=== PATIENT | female | born 1970 | race Caucasian/White ===

== ENCOUNTER 2018-11-10 17:00 | Outpatient (RCR) | payer BC, SELFPAY ==
--- NOTE | 2018-09-24 17:00 | HMH.PTOPEV ---
PT Outpatient Evaluation Rehab PT Outpatient Evaluation Start: 09/24/18 16:40 Freq: Status: Active Protocol: Document 09/24/18 16:40 ARIE (Rec: 09/24/18 16:59 ADRIENYOSELIN [id number]) Electronically Signed By Rogelio Shahid, PT 09/24/18 16:40 Outpatient Therapy Subjective History Subjective History Patient is a 48 year old female presenting to outpatient PT with reports of chronic lumbar spine pain with LLE radicular symptoms to the buttock and lateral thigh. No cervical radicular symptoms to report. Lumbar spine symptoms started approximately 6 months ago, while cevical spine pain began approx 12 years ago. No specific mechanism of injury to report. Comorbidities include fibomyalgia, LHB tendonitis, c -section x 1 and R knee arthroscopic surgery. Chief Complaint Pain,Paresthesia,Decreased Coordination Symptom Type Ache,Sharp Symptoms Relieved By Rest/Positioning,Heat, Prescription Meds Symptoms Aggravated By Sitting Prior Functional Limitations None Current Functional Limitations Lifting,Housework,Standing, Sitting,Walking Symptom Description Constant but Variable Level of pain today (0-10) 5 Pain scale - at its best (0-10) 2 Pain scale - at its worst (0-10) 6 Cervical Eval Palpation Cervical Muscles R Cervical Paraspinal,L Cervical Paraspinal,R Upper Trapezius,L Upper Trapezius Cervical/Thoracic Palpation Findings Tenderness Posture Head/C-Spine Posture Sitting Position C-Spine Flattened Flexibility Deficits Upper Trapezius Muscle Length (R) Moderate Tightness,(L) Moderate Tightness Levaetor Scapulae Muscle Length (R) Moderate Tightness,(L) Moderate Tightness Pectoralis Minor Muscle Length (R) Moderate Tightness,(L) Moderate Tightness Passive Joint Mobility Cervical PIVM Dec: R C2/3 L C2/3 R C3/4 L C3/4 R C4/5 L C4/5 R C5/6
== END 2018-11-10 17:05 | disposition home or self-care (01) ==
LOC: PT 17:00
PROVIDERS: Referring Provider Internal Medicine Adolescent Medicine; Visit Provider Internal Medicine Adolescent Medicine
DX: M54.12 Radiculopathy, cervical region (principal); M54.32 Sciatica, left side
CPT/HCPCS: 97010; 97012; 97014; 97033; 97035; 97110; 97140; 97163; G0283

== ENCOUNTER → 2020-06-13 12:33 | Outpatient (CLI) | payer BC, SELFPAY ==
--- NOTE | 2020-06-13 12:41 | XR_ITS ---
PROCEDURE: XR ANKLE RT MIN 3V CLINICAL INDICATION: RT ANKLE PAIN Injury with pain COMPARISON: No exams were available for comparison FINDINGS: There is a minimally displaced oblique fracture involving the distal aspect of the fibula. The fracture exits medially at the level of the ankle joint with minimal lateral displacement of the distal fracture fragment by 2 mm. IMPRESSION: Minimally displaced distal fibular fracture described Dictated by: Cy Mireles MD 06/13/2020 15:12 Cy Mireles MD in [place] 06/13/2020 15:12
== END ==
PROVIDERS: PCP Internal Medicine Adolescent Medicine; Visit Provider Internal Medicine Adolescent Medicine
DX: M25.571 Pain in right ankle and joints of right foot (principal)
CPT/HCPCS: 73610

== ENCOUNTER → 2020-06-14 15:45 | Outpatient (CLI) | payer BC, SELFPAY ==
[2020-06-14 17:04] LABS: Chloride 101 mmol/L (98-107); Potassium 4.2 mmoL/L (3.5-5.1); Sodium 138 mmol/L (136-145)
[2020-06-14 17:07] LABS: Alanine Aminotransferase 14 U/L (12-78); Albumin Level 4.5 g/dl (3.5-5.0); Albumin/Globulin Ratio 1.7 (1.1-1.8); Alkaline Phosphatase 53 U/L (38-126); Anion Gap 12.2 mEq/L (5-15); Aspartate Amino Transferase 24 U/L (14-36); Bilirubin,Total 0.3 mg/dl (0.2-1.3); Blood Urea Nitrogen 10 mg/dl (7-17); Carbon Dioxide 29 mmol/L (22.0-30.0); Estimated Glomerular Filt Rate 66 ml/min (>60); GFR (African American) 80 ML/MIN (>60); Globulin 2.6 g/dL (1.3-3.2); Total Protein,Serum 7.1 g/dl (6.3-8.2)
[2020-06-14 17:08] LABS: Calcium 9.9 mg/dl (8.4-10.2); Glucose 111 mg/dl (74-100)
[2020-06-14 17:09] LABS: Basophils # 0.1 K/mm3 (0-0.2); Basophils % 0.7 % (0.1-2.0); Eosinophils # 0.2 K/mm3 (0.0-0.4); Eosinophils % 2.6 % (0.1-12.0); Hematocrit 43.3 % (37.0-47.0); Lymphocytes # 2.5 K/mm3 (0.7-4.5); Lymphocytes % 33.5 % (10-50); Mean Corpuscular HGB Conc 32.2 g/dL (31.8-35.4); Mean Corpuscular Hemoglobin 29.4 pg (27.0-31.2); Mean Corpuscular Volume 91.1 fl (81-99); Mean Platelet Volume 8.8 fl (7.4-10.4); Monocytes # 0.3 K/mm3 (0.1-1.0); Monocytes % 3.7 % (1.7-9.3); Neutrophils # 4.5 K/mm3 (1.8-7.8); Neutrophils % 59.5 % (37.0-80.0); Platelet Count 236 K/mm3 (142-424); Red Blood Count 4.75 M/mm3 (4.20-5.40); Red Cell Distribution Width 13.6 % (11.5-17.5); White Blood Count 7.6 K/mm3 (4.8-10.8)
[2020-06-14 17:29] LABS: Urine Pregnancy, HCG Qual. Negative (Negative)
[2020-06-14 17:48] LABS: Coronavirus 19 IgG Antibody Negative (Negative); Coronavirus 19 IgM Antibody Negative (Negative)
== END ==
PROVIDERS: Visit Provider Orthopaedic Surgery
DX: Z01.812 Encounter for preprocedural laboratory examination (principal); Z20.822 Contact with and (suspected) exposure to COVID-19; S82.61XA Displaced fracture of lateral malleolus of right fibula, initial encounter for closed fracture
CPT/HCPCS: 36415; 80053; 81025; 85025; 86328

== ENCOUNTER 2020-06-15 08:19 | Day surgery (SDC) | payer BC, SELFPAY ==
[2020-06-14 16:51] VITALS: BMI 24.5
[2020-06-15] VITALS (11 sets, daily range): BP systolic 105–133; BP diastolic 64–77; PULSE 94–105; RESP 14–18; TEMP 36.4–36.6; O2SAT 92–100
--- NOTE | 2020-06-15 13:25 | XR_ITS ---
PROCEDURE: XR ANKLE RT 2V CLINICAL INDICATION: ORIF Rt ankle COMPARISON: No exams were available for comparison FINDINGS: Fluoroscopy time: 55 seconds. Multiple images are submitted during ORIF of the distal fibular fracture with placement of a lateral bone plate within the distal fibula as well as a cortical screw. There is good alignment. IMPRESSION: Good alignment status post ORIF distal fibula Dictated by: Cy Mireles MD 06/15/2020 18:41 Cy Mireles MD in [place] 06/15/2020 18:41
--- NOTE | 2020-06-15 13:49 | P.PN_ITS ---
[facility] Anesthesia Checklist - Patient Identification Patient Identification: Arm Band - Structural Data Admitted From: Home Planned Operative Procedure/s: ORIF right ankle Consent for Planned Operative Procedure(s) Verified: Yes Verified Documents: Surgical Consent, History and Physical - NPO Status Verified Time NPO: 00:00 - Additional verifications Anesthesia Reactions: No Hx Blood Transfusions: No Blood Transfusion Reaction: No - Airway Assessment C-Spine Mobility Assessed: Yes (mp2) TMJ Mobility Assessed: Yes Dentition: Good Dentition - Neurological Assessment Level of Consciousness: Awake, Alert - Anesthesia Plan Anesthesia Risk discussed: Yes Anesthesia Plan: Verified ASA Class: II Anesthesia Type: General w/block (Popliteal/saphenous nerve block. Risks/benefits explained. 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 No: Pacemaker Amputation: No Fractures: No - *Social History Last grade of school completed: Some college Smoking Status: Never smoker Alcohol Intake: never Alcohol Intake Frequency:: holidays/special occasions only Substance Use Type: denies use *Occupational Status:: employed Housing: house Household Members: spouse, family *Travel in the last 8 weeks: None Family Hx:: Stroke
--- NOTE | 2020-06-15 13:51 | P.PN_ITS ---
[facility] Anesthesia Record Part I Intake, IV Amount: 1,500 Estimated blood loss (mL): 10 Urine output (mL): 0 Blood Pressure: 133/77 SaO2: 92 Pulse Rate: 105 Respiratory Rate: 16 Temperature: 97.8 F Patient is:: Drowsy, Stable Stable to PACU at:: 13:45
--- NOTE | 2020-06-15 16:12 | HMH.ANESII ---
[facility] Anesthesia Record Part II Discharge Time: 14:19 Destination: Surgical Day Care (OP Surgery) PACU nurse assessment reviewed?: Yes Patient Condition:: Good Anesthesia Complications:: None Swallowing reflex intact?: Yes Cyanosis?: No Blood Pressure: 123/72 Pulse Rate: 100 Temperature: 97.7 F Mental Status: Alert & Oriented Pain level:: 0 Nausea and/or vomitting:: None Intake, IV Amount: 0
--- NOTE | 2020-06-15 22:54 | HMH.OPNOTE ---
Date of procedure: 06/15/20 Pre-op Diagnosis:: Closed, displaced fracture lateral malleolus, right ankle Post-op Diagnosis:: Same Procedure performed:: Open reduction and internal fixation, lateral malleolus, right ankle Surgeon:: Felton Kerr MD Microbial Specialist(s):: Danielle Payne SCALLOP RAKER:: Aung Allen Anesthesia: regional (Popliteal nerve block), LMA Estimated blood loss (mL): 5 Clinical Note:: Patient is a 49-year-old female who sustained a closed, displaced fracture of the lateral malleolus of her right ankle 4 days ago. She says she sustained a twisting injury to the ankle while getting onto the bed at home. There is no talar shift and syndesmosis appears intact. The medial malleolus is noted to be intact. Following a detailed discussion about the management options including both the nonoperative and operative, patient elected for surgical remediation. Surgery is indicated to anatomically reduce and stabilize the fracture in order to relieve the pain and improve the function and reduce the risk of complications including arthritis in future. 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 Her medical history includes fibromyalgia, hypothyoidism depression and chronic pain syndrome. She is on long-term oxycodone, diazepam and cyclobenzaprine. She is not a known diabetic and is a non-smoker. Please refer to my office note for full details. Operative findings:: Preoperative imaging findings and diagnosis correlate with the intraoperative findings. There is a mildly displaced, Mauro A type of lateral malleolus fracture. There is no lateral talar shift. The inferior tibiofibular syndesmosis is intact on Cotton's test; therefore, no syndesmotic fixation was not needed. After fixing the lateral malleolus, the ankle joint was stable and congruent. Bone quality is good. Operative note:: Prior to surgery patient was met in the preoperative assessment area and positively identified. I have again reviewed the clinical and imaging findings, diagnosis, management options including both nonsurgical and surgical and the expected results. Given the clinical and radiological findings, I have recommended an open reduction and internal fixation of the lateral malleolus fracture. We've outlined where the incision would be on the skin. Risks of surgery discussed include but are not limited to- infection, injury to nerves and blood vessels, injury to tendons, compartment syndrome, DVT/PE, malunion, nonunion, stiffness, CRPS (complex regional pain syndrome- pain, sensory and temperature changes, swelling and stiffness), painful hardware, loss of fixation, arthritis, incomplete relief of pain, incomplete return of function, and likely need for further surgery in future and also the risks of anesthesia including heart attack, stroke, and even . We've discussed how there is a small but real possibility of loss of use of the leg, loss of the leg or loss of life itself. We've also explained how additional surgery may be required. We explained the weightbearing status, immobilization required, the likely need for physical therapy, the possibility of stiffness, chronic pain and we've also discussed the option of nonsurgical treatment. The patient expressed full understanding and asked appropriate questions. All the questions were answered by me and patient verbalized a good understanding. She wished to proceed with surgery as planned. Patient understood the risks, agreed to proceed with surgery, signed the consent form and no guarantees or assurances were given or implied. A physical examination was performed and documented. The limb was marked and and initialed by me. The patient was brought to the operating room, placed supine on the operating table, and a general anesthesia was administered by the adoption specialist. Prior to this patient also had a popliteal nerve block by the adoption specialist in the preoperativ
== END 2020-06-15 15:05 | disposition home or self-care (01) ==
LOC: OR 08:20
PROVIDERS: PCP Internal Medicine Adolescent Medicine; Visit Provider Orthopaedic Surgery
DX: S82.61XA Displaced fracture of lateral malleolus of right fibula, initial encounter for closed fracture (principal); W06.XXXA Fall from bed, initial encounter; Y92.013 Bedroom of single-family (private) house as the place of occurrence of the external cause
CPT/HCPCS: 27792; 73600; 76000; 96374; C1713; C1776; J2405

== ENCOUNTER → 2020-06-22 16:18 | Outpatient (CLI) | payer BC, SELFPAY ==
--- NOTE | 2020-06-22 16:22 | XR_ITS ---
PROCEDURE: XR ANKLE RT MIN 3V CLINICAL INDICATION: sp ORIF RT ankle, cast applied Follow-up fracture/ORIF COMPARISON: CR XR ANKLE RT MIN 3V from 06/13/2020 FINDINGS: There is a cast in place. There has been placement of a lateral bone plate at the distal fibula with good alignment of the bony fragments. IMPRESSION: Status post ORIF distal fibula with good alignment Dictated by: Cy Mireles MD 06/22/2020 17:18 Cy Mireles MD in [place] 06/22/2020 17:18
== END ==
PROVIDERS: PCP Internal Medicine Adolescent Medicine; Visit Provider Orthopaedic Surgery
DX: S82.61XA Displaced fracture of lateral malleolus of right fibula, initial encounter for closed fracture (principal); Z09 Encounter for follow-up examination after completed treatment for conditions other than malignant neoplasm
CPT/HCPCS: 73610

== ENCOUNTER → 2020-07-04 13:53 | Outpatient (CLI) | payer BC, SELFPAY ==
--- NOTE | 2020-07-04 14:00 | XR_ITS ---
PROCEDURE: XR ANKLE RT MIN 3V CLINICAL INDICATION: sp ORIF RT ankle; OUT OF CAST COMPARISON: CR XR ANKLE RT MIN 3V from 06/13/2020 CR XR ANKLE RT MIN 3V from 06/22/2020 FINDINGS: Patient has had prior ORIF of distal fibula. The bony structures are well aligned. There is no x-ray evidence of hardware complication. The ankle mortise is preserved. Distal tibiofibular articulation closely approximated. IMPRESSION: Normal postsurgical appearance Dictated by: Lyric Holliday 07/04/2020 16:36 Lyric Holliday in [place] 07/04/2020 16:36
== END ==
LOC: OBOUT 13:55 → RAD 08-09 09:32
PROVIDERS: PCP Internal Medicine Adolescent Medicine; Visit Provider Orthopaedic Surgery
DX: S82.61XA Displaced fracture of lateral malleolus of right fibula, initial encounter for closed fracture (principal); Z09 Encounter for follow-up examination after completed treatment for conditions other than malignant neoplasm
CPT/HCPCS: 73610

== ENCOUNTER 2020-07-04 14:43 | Outpatient (RCR) | payer BC, SELFPAY | END 2020-07-04 15:10 | disposition home or self-care (01) | LOC: PT 14:43 | PROVIDERS: Visit Provider Orthopaedic Surgery | DX: S82.61XD Displaced fracture of lateral malleolus of right fibula, subsequent encounter for closed fracture with routine healing (principal) | CPT/HCPCS: 97760 ==

== ENCOUNTER → 2020-08-01 14:04 | Outpatient (CLI) | payer BC, SELFPAY ==
--- NOTE | 2020-08-01 14:09 | XR_ITS ---
PROCEDURE: XR ANKLE RT MIN 3V CLINICAL INDICATION: sp ORIF RT ankle, dos 06/15/20 Follow-up surgery COMPARISON: CR XR ANKLE RT MIN 3V from 06/13/2020 CR XR ANKLE RT MIN 3V from 06/22/2020 CR XR ANKLE RT MIN 3V from 07/04/2020 FINDINGS: Status post ORIF of the fibula with a lateral bone plate and multiple cortical screws with good alignment of the fracture fragments. Minimal spurring noted along the anterior distal aspect of the tibia and at the dorsal navicular region. IMPRESSION: No change good alignment status post ORIF of the fibula. Dictated by: Cy Mireles MD 08/01/2020 14:36 Cy Mireles MD in [place] 08/01/2020 14:36
== END ==
PROVIDERS: PCP Internal Medicine Adolescent Medicine; Visit Provider Orthopaedic Surgery
DX: S82.61XD Displaced fracture of lateral malleolus of right fibula, subsequent encounter for closed fracture with routine healing (principal); Z09 Encounter for follow-up examination after completed treatment for conditions other than malignant neoplasm
CPT/HCPCS: 73610

== ENCOUNTER → 2020-09-12 14:04 | Outpatient (CLI) | payer BC, SELFPAY ==
--- NOTE | 2020-09-12 14:08 | XR_ITS ---
PROCEDURE: XR ANKLE RT MIN 3V CLINICAL INDICATION: ORIF rt ankle COMPARISON: CR XR ANKLE RT MIN 3V from 06/13/2020 CR XR ANKLE RT MIN 3V from 06/22/2020 CR XR ANKLE RT MIN 3V from 07/04/2020 CR XR ANKLE RT MIN 3V from 08/01/2020 FINDINGS: Lateral bone plate remains in place at the distal fibula with good alignment. Fracture line is not readily identified. Oval lucency is noted along the talar dome medially measuring 5 mm. The cortex appears intact. Mild degenerative changes present at the ankle joint. Other findings:None. IMPRESSION: Good alignment healing distal fibular fracture. Small subcortical lucency talar dome medially suggesting a subarticular cyst Dictated by: Cy Mireles MD 09/12/2020 14:46 Cy Mireles MD in [place] 09/12/2020 14:46
== END ==
PROVIDERS: PCP Internal Medicine Adolescent Medicine; Visit Provider Orthopaedic Surgery
DX: S82.61XA Displaced fracture of lateral malleolus of right fibula, initial encounter for closed fracture (principal)
CPT/HCPCS: 73610

== ENCOUNTER 2020-10-04 15:00 | Outpatient (RCR) | payer BC, SELFPAY ==
--- NOTE | 2020-08-09 17:59 | HMH.PTOPEV ---
PT Outpatient Evaluation Rehab PT Outpatient Evaluation Start: 08/09/20 17:43 Freq: Status: Active Protocol: Document 08/09/20 17:48 MARYLOUJESSICA (Rec: 08/09/20 17:59 ALICIA [id number]) Electronically Signed By Darnell Vaughn PT 08/09/20 17:48 Outpatient Therapy Subjective History Subjective History This is the initial Physical Therapy evaluation for Martine Patiño. Pt is a 49 y/o female referred to PT s/p R ankle ORIF. Pt reports she fell at home on 06/11/20. Pt reports x-ray and orthopedic consult resulted in ORIF to fix displaced fublar fx. Pt reports she was in cast NWB for ~ 4 weeks, then gradually allowed to weight bear in CAM boot. Pt now reports to PT for strengthening and functional return. Chief Complaint Pain Symptom Type Ache,Throb,Sharp Symptoms Relieved By Rest/Positioning,Ice Symptoms Aggravated By Physical Activity Prior Functional Limitations None Current Functional Limitations Housework,Squatting,Recreation Activity,Walking,Stairs Symptom Description Intermittent Level of pain today (0-10) 0 Pain scale - at its best (0-10) 0 Pain scale - at its worst (0-10) 6 Ankle/Foot Eval Gait Observation General Gait Pattern Observation Antalgic Gait Assistive Device Ambulation Assistive Device None Palpation Tenderness right Ankle/Foot Palpation Findings Tenderness Ankle/Foot Palpation Overall Comment severe TTP along distal incision ROM Ankle/Foot Dorsiflexion w/Knee Extended 10 Active Range Motion (degrees) Ankle/Foot Plantar Flexion Active Range 50 of Motion (degrees) Ankle/Foot Eversion Active Range of 10 Motion (degrees) Ankle/Foot Inversion Active Range of 30 Motion (degrees) Ankle/Foot ROM Limitations Soft Tissue Tightness Ankle/Foot ROM Reason Not Measured Within Functional Limits MMT Ankle Dorsiflexion Strength Grade 4 Good Ankle Plantarflexion Strength Grade 4- Good- Foot Eversion Strength Grade 4 Good Foot Inversion Strength Grade 4 Good Special Tests Ankle Anterior Drawer Test Negative Right Ankle Eversion Test Negative Right Talar Tilt Test Negative Right Ankle Inversion (supination) Test Negative Right Outpatient Therapy Assessment Impairments Problems/Impairmments Palpation Tenderness,Impaired
== END 2020-11-29 14:37 | disposition home or self-care (01) ==
LOC: PT 15:00
PROVIDERS: PCP Internal Medicine Adolescent Medicine; Visit Provider Orthopaedic Surgery
DX: S82.61XD Displaced fracture of lateral malleolus of right fibula, subsequent encounter for closed fracture with routine healing (principal)
CPT/HCPCS: 97010; 97014; 97033; 97110; 97112; 97163; 97164; G0283

== ENCOUNTER → 2020-12-05 09:51 | Outpatient (CLI) | payer BC, SELFPAY ==
--- NOTE | 2020-12-05 10:20 | XR_ITS ---
PROCEDURE: XR ANKLE RT MIN 3V CLINICAL INDICATION: sp ORIF RT ankle sx 06/15/20 COMPARISON: CR XR ANKLE RT MIN 3V from 06/22/2020 CR XR ANKLE RT MIN 3V from 07/04/2020 CR XR ANKLE RT MIN 3V from 08/01/2020 CR XR ANKLE RT MIN 3V from 09/12/2020 FINDINGS: Plate and screw fixation of the distal fibula is again noted, demonstrates satisfactory alignment. Previously noted distal fibular fracture is not visualized on the current study. Minor callus formation is noted in the distal fibula. The ankle mortise is congruent and the lateral clear space is preserved. No significant soft tissue abnormality. IMPRESSION: Internal fixation of the right distal fibula. No acute abnormality. Dictated by: Brie Kerr 12/05/2020 11:30 Brie Kerr in [place] 12/05/2020 11:30
[2020-12-05 10:26] LABS: Basophils # 0.1 K/mm3 (0-0.2); Basophils % 0.6 % (0.1-2.0); Eosinophils # 0.4 K/mm3 (0.0-0.4); Eosinophils % 4.6 % (0.1-12.0); Hematocrit 41.1 % (37.0-47.0); Lymphocytes # 2.5 K/mm3 (0.7-4.5); Lymphocytes % 30.6 % (10-50); Mean Corpuscular HGB Conc 34.1 g/dL (31.8-35.4); Mean Corpuscular Hemoglobin 29.9 pg (27.0-31.2); Mean Corpuscular Volume 87.9 fl (81-99); Mean Platelet Volume 9.1 fl (7.4-10.4); Monocytes # 0.2 K/mm3 (0.1-1.0); Monocytes % 2.6 % (1.7-9.3); Neutrophils # 4.9 K/mm3 (1.8-7.8); Neutrophils % 61.5 % (37.0-80.0); Platelet Count 324 K/mm3 (142-424); Red Blood Count 4.68 M/mm3 (4.20-5.40); Red Cell Distribution Width 14.1 % (11.5-17.5)
[2020-12-05 11:04] LABS: Alanine Aminotransferase 14 U/L (12-78); Albumin Level 4.8 g/dl (3.5-5.0); Albumin/Globulin Ratio 2.1 (1.1-1.8); Alkaline Phosphatase 67 U/L (38-126); Anion Gap 15.2 mEq/L (5-15); Aspartate Amino Transferase 20 U/L (14-36); Bilirubin,Total 0.5 mg/dl (0.2-1.3); Blood Urea Nitrogen 10 mg/dl (7-17); Calcium 9.4 mg/dl (8.4-10.2); Carbon Dioxide 28 mmol/L (22.0-30.0); Chloride 102 mmol/L (98-107); Estimated Glomerular Filt Rate 66 ml/min (>60); GFR (African American) 80 ML/MIN (>60); Globulin 2.3 g/dL (1.3-3.2); Glucose 79 mg/dl (74-100); HDL Cholesterol 93 mg/dl (40-60); Potassium 4.2 mmoL/L (3.5-5.1); Sodium 141 mmol/L (136-145); Total Protein,Serum 7.1 g/dl (6.3-8.2)
[2020-12-05 11:06] LABS: Chol/HDL Ratio 2.2 (1-3.5); Cholesterol 207 mg/dl (140-200); Triglycerides 151 mg/dl (30-150); VLDL Cholesterol 30 mg/dL (0-40)
[2020-12-05 11:14] LABS: Direct LDL Cholesterol 81.95 mg/dL (100-129)
[2020-12-05 11:21] LABS: Free Thyroxine Index 2.9 ug/dL (5.93-13.13); T4 (Thyroxine) 8.8 ug/dl (5.53-11.0); Triiodothryronine (T3) Uptake 33 % (23.5-40.5)
[2020-12-05 11:34] LABS: Thyroid Stimulating Hormone 0.16 uIU/mL (0.465-4.68)
[2020-12-05 11:54] LABS: Vitamin B12 221 pg/mL (239-931)
--- NOTE | 2020-12-05 12:17 | XR_ITS ---
PROCEDURE: XR FOOT WT BEARING RT 2V CLINICAL INDICATION: right foot pain COMPARISON: No exams were available for comparison FINDINGS: Plate and screw fixation of the right distal fibula is noted, partially visualized. The visualized tarsals, metatarsals and phalanges are unremarkable. No acute fractures or dislocation. Bone density is normal. No significant soft tissue abnormality is noted. Calcaneal spur is noted. IMPRESSION: Internal fixation of the distal fibular, partially visualized. No acute abnormality. Dictated by: Brie Kerr 12/05/2020 13:57 Brie Kerr in [place] 12/05/2020 13:57
[2020-12-05 15:09] LABS: Barbiturates Screen,Urine Negative ng/ml (<200)
[2020-12-05 15:10] LABS: Benzodiazepines Screen,Urine Negative ng/ml (<200)
[2020-12-05 15:11] LABS: Amphetamine/Metha Screen,Urine Negative ng/ml (<1000); Methadone Screen,Urine Negative ng/ml (<300)
[2020-12-05 15:12] LABS: Cannabinoid Screen,Urine Negative ng/ml (<50)
[2020-12-05 15:13] LABS: Cocaine Screen,Urine Negative ng/ml (<300); Opiate Screen,Urine Negative ng/ml (<300)
[2020-12-05 15:14] LABS: Phencyclidine Screen,Urine Negative ng/ml (<25)
[2020-12-05 15:26] LABS: 25-OH Vitamin D, Total 62.9 ng/mL (30-100)
== END ==
PROVIDERS: PCP Internal Medicine Adolescent Medicine; Visit Provider Orthopaedic Surgery
DX: Z09 Encounter for follow-up examination after completed treatment for conditions other than malignant neoplasm (principal); M79.671 Pain in right foot; M54.12 Radiculopathy, cervical region; E03.9 Hypothyroidism, unspecified
CPT/HCPCS: 36415; 73610; 73620; 80053; 80061; 80305; 82306; 82607; 84436; 84443; 84479; 85025

== ENCOUNTER → 2020-12-12 12:07 | Outpatient (CLI) | payer BC, SELFPAY | PROVIDERS: Visit Provider Orthopaedic Surgery | DX: Z01.818 Encounter for other preprocedural examination (principal); Z20.822 Contact with and (suspected) exposure to COVID-19 | CPT/HCPCS: U0003 ==

== ENCOUNTER → 2020-12-13 10:54 | Outpatient (CLI) | payer BC, SELFPAY ==
--- NOTE | 2020-12-13 10:56 | MM_ITS ---
PROCEDURE: MM DIG SCREENING MAMM BI W/CAD Digital Breast Tomosynthesis Included CLINICAL INDICATION: SCREENING COMPARISON: MG MAZIN DIGITAL SCREEN BILATERAL MOBILE from 10/09/2017 MG MAZIN BODULIO DIGITAL SCREEN BILATERAL from 10/21/2018 TECHNIQUE: Standard CC and MLO images and 3D Tomosynthesis was obtained. R2 CAD reviewed. FINDINGS: There is heterogeneously dense fibroglandular tissue. No malignant appearing mass or malignant-appearing microcalcification. Scattered areas of asymmetric fibroglandular tissue noted. 5 mm area of nodularity noted in the lateral aspect of the left breast as seen on the exaggerated CC view and may be related to an island of fibroglandular tissue. There are no previous exaggerated cc available for review. This is felt to be related to an area of asymmetric density in the upper outer left breast as seen on this exam and previous exams. Six-month follow-up suggested for confirmation of stability. Small nodes are present in the axilla. No skin thickening or architectural distortion IMPRESSION: No convincing evidence of malignancy. Asymmetric density upper outer left breast more prominent on the exaggerated CC view probably benign. Recommend six-month mammographic follow-up of the left breast. Ultrasound may also be needed at that time if the abnormality persists. BI-RAD Category: 3 Probably Benign Finding Short Term Follow-Up FOLLOW-UP: 6M 6 Month Follow-up (A letter has been sent to the patient regarding results of the study.) Dictated by: Cy Mireles MD 12/20/2020 09:04 Cy Mireles MD in [place] 12/20/2020 09:04
== END ==
PROVIDERS: PCP Internal Medicine Adolescent Medicine; Visit Provider Internal Medicine Adolescent Medicine
DX: Z12.31 Encounter for screening mammogram for malignant neoplasm of breast (principal)
CPT/HCPCS: 77063; 77067

== ENCOUNTER 2020-12-14 10:18 | Day surgery (SDC) | payer BC, SELFPAY ==
[2020-12-12 12:43] VITALS: BMI 24.5
[2020-12-14] VITALS (11 sets, daily range): BP systolic 95–143; BP diastolic 60–93; PULSE 90–96; RESP 13–18; TEMP 36.4–43; O2SAT 92–100
--- NOTE | 2020-12-14 12:15 | P.PN_ITS ---
[facility] Anesthesia Checklist - Patient Identification Patient Identification: Arm Band - Structural Data Admitted From: Home Planned Operative Procedure/s: Hardware removal Consent for Planned Operative Procedure(s) Verified: Yes - NPO Status Verified Time NPO: 00:00 - Additional verifications Anesthesia Reactions: No Hx Blood Transfusions: No Blood Transfusion Reaction: No - Airway Assessment C-Spine Mobility Assessed: Yes TMJ Mobility Assessed: Yes Dentition: Good Dentition - Neurological Assessment Level of Consciousness: Awake Hx Seizures: No Numbness or tingling in extremities: No - Anesthesia Plan Anesthesia Risk discussed: Yes Anesthesia Plan: Verified ASA Class: II Anesthesia Type: General [facility] History I have reviewed the patient's past medical history: Yes Medical History: Reports:: Anxiety, Depression, MRSA (groin) Denies:: Cancer, Diabetes Mellitus Type 1, Diabetes Mellitus Type 2, Internal Pacemaker, Seizures *Have you ever received a pneumonia vaccine?: No *Have you received a flu vaccine this season?: Yes Other Medical History: Reports: Hypothyroidism, Other (Fibromyalgia, chronic fatigue). Denies: Blood Transfusion Reaction Anesthesia experience/problems:: None Laterality Cases: Right: Arthroscopy Knee, Bilateral: Tonsillectomy Other Surgeries: Yes: , Other. No: Pacemaker Amputation: No Fractures: Yes - *Social History Last grade of school completed: Some college Smoking Status: Never smoker Alcohol Intake: current Alcohol Intake Frequency:: holidays/special occasions only Substance Use Type: denies use *Occupational Status:: employed Housing: house Household Members: spouse, family *Travel in the last 8 weeks: Inside the [place] Family Hx:: No significant family history
--- NOTE | 2020-12-14 13:55 | XR_ITS ---
PROCEDURE: XR ANKLE RT 2V CLINICAL INDICATION: HARDWARE REMOVAL RT ANKLE COMPARISON: No exams were available for comparison FINDINGS: Fluoroscopy time: 14 seconds Images submitted during the procedure show hardware removal with removal of the lateral fibular bone plate and screws. A needle was also placed over the 1st metacarpophalangeal joint presumably for joint injection. IMPRESSION: C-arm utilized for hardware removal and 1st interphalangeal joint localization Dictated by: Cy Mireles MD 12/14/2020 16:59 Cy Mireles MD in [place] 12/14/2020 16:59
--- NOTE | 2020-12-14 14:06 | P.PN_ITS ---
[facility] Anesthesia Record Part I Intake, IV Amount: 1,000 Estimated blood loss (mL): 5 Urine output (mL): 0 Blood Pressure: 119/72 SaO2: 92 Pulse Rate: 92 Respiratory Rate: 13 Temperature: 97.8 F Patient is:: Drowsy, Oral/Nasal airway Stable to PACU at:: 14:00
--- NOTE | 2020-12-14 14:35 | HMH.OPNOTE ---
Date of procedure: 12/14/20 Pre-op Diagnosis:: 1. Painful orthopedic hardware, right ankle 2. First MTP joint arthritis, right foot Post-op Diagnosis:: Same Procedure performed:: 1. Injection of steroid and local anesthetic, first MTP joint, right foot 2. Removal of plate and screws, lateral malleolus, right ankle Surgeon:: Felton Kerr MD OFFLINE CUTTER:: Guerita Harding Anesthesia: LMA Estimated blood loss (mL): 2 Clinical Note:: Patient is a 50-year-old female status post ORIF for lateral malleolus fracture of the right ankle about 6 months ago. She has been having hardware related pain and tenderness for a length of time. This failed to respond satisfactorily to conservative management. She reports that the skin over the distal fibula is very sensitive to touch and she is finding it difficult with her footwear. She reports her pain is a 2 out of 10 at rest and a 5 out of 10 at its worse. She reports prolonged walking aggravates her pain. She is on long-term pain medication and is also taking ibuprofen as needed. No history of any fevers, chills or rigors. She feels well within herself. No history of any swelling or erythema around the ankle. No history of any distal tingling or numbness. More recently, she is also having pain in her right big toe. She localizes the pain to the first MTP joint. She says the pain is worse with walking. No history of any previous problems with the big toe. She is a non smoker. On examination she is tender over the plate and screws over the lateral malleolus. No signs of infection noted. Radiologically the lateral malleolus fracture has healed well. On examination of the first MTP joint, she has tenderness and limited range of motion. Following a detailed discussion about management options, patient opted for removal of the hardware from the right ankle and intra-articular steroid injection to the right first MTP joint. Please refer to my office note for full details. Operative findings:: Mild arthritic changes in the first MTP joint as noted on the preoperative imaging. Well fixed hardware over the lateral malleolus which came out easily without any complications. No evidence of any infection or other complications noted. We obtained culture swabs for microbiology. Operative note:: On the day of surgery patient and her were met in the preoperative area and positively identified. I have again reviewed the diagnosis, natural history and management options in detail including both nonsurgical and surgical. Given the severity and chronicity of her symptoms, she wished to proceed with removal of hardware from the lateral mellitus and debridement as needed. We also discussed about steroid injection to the first MTP joint to improve her pain. I have discussed the details of the procedures, risks and benefits and alternatives. The complications discussed include but are not limited to infection, bleeding, injury to nerves and blood vessels, injury to tendons, skin breakdown and non healing wound, stiffness, DVT and PE, CRPS (complex regional pain syndrome- pain, sensory and temperature changes, swelling and stiffness), incomplete relief of pain, incomplete return of function, and likely need for further surgery in future and also the risks of anesthesia including heart attack, stroke, and even . I have also explained how additional surgery may be required if there are any complications or there is infection. I have specifically told her that she may need multiple surgeries if there is bone infection. We've also discussed the option of nonsurgical treatment. The patient understands and has asked appropriate questions. All her questions were answered and she verbalized a good understanding. She desires to proceed with the proposed surgery in the form of removal of hardware from the distal fibula and debridement as well as injection of the right first MTP joint under fluoroscopy. A physical examination was pe
--- NOTE | 2020-12-15 07:51 | HMH.ANESII ---
[facility] Anesthesia Record Part II Discharge Time: 14:40 Destination: Surgical Day Care (OP Surgery) PACU nurse assessment reviewed?: Yes Patient Condition:: Good Anesthesia Complications:: None Swallowing reflex intact?: Yes Cyanosis?: No Blood Pressure: 130/74 Pulse Rate: 94 Temperature: 97.6 F Mental Status: Jail Memory Loss Pain level:: 0 Nausea and/or vomitting:: None Intake, IV Amount: 0
[2020-12-15 07:52] VITALS: BP 130/74; PULSE 94; TEMP 36.4
== END 2020-12-14 15:11 | disposition home or self-care (01) ==
LOC: OR 10:19
PROVIDERS: PCP Internal Medicine Adolescent Medicine; Visit Provider Orthopaedic Surgery
PROC: (CPT 20680; principal; 2020-12-14 11:45)
DX: Z47.2 Encounter for removal of internal fixation device (principal); T84.84XA Pain due to internal orthopedic prosthetic devices, implants and grafts, initial encounter; Y83.1 Surgical operation with implant of artificial internal device as the cause of abnormal reaction of the patient, or of later complication, without mention of misadventure at the time of the procedure; M19.071 Primary osteoarthritis, right ankle and foot; G89.29 Other chronic pain; Z79.899 Other long term (current) drug therapy
CPT/HCPCS: 20680; 20605; 73600; 76000; 87070; 87075; 87205; 96374; J0131; J2405

== ENCOUNTER → 2020-12-27 09:21 | Outpatient (CLI) | payer BC, SELFPAY ==
--- NOTE | 2020-12-27 09:23 | XR_ITS ---
PROCEDURE: XR DEXA AXIAL SKELETON CLINICAL HISTORY: POST-MENOPAUSAL COMPARISON: No exams were available for comparison FINDINGS: The right hip BMD is 0.649 with a T-score of -1.8. The left hip BMD is 0.677 with a T-score of -1.6. The lumbar spine BMD is 1.023 with a T-score of -0.2. IMPRESSION: This patient is considered osteopenic according to the World Health Organization criteria. Bone density is between 10 and 25 percent below young normal. Fracture risk is moderate. Treatment is advised. Based on these results a follow-up exam is recommended in 2 year. Dictated by: Cy Mireles MD 12/28/2020 07:37 Cy Mireles MD in [place] 12/28/2020 07:37
== END ==
PROVIDERS: PCP Internal Medicine Adolescent Medicine; Visit Provider Internal Medicine Adolescent Medicine
DX: Z13.820 Encounter for screening for osteoporosis (principal); Z78.0 Asymptomatic menopausal state
CPT/HCPCS: 77080

== ENCOUNTER → 2021-06-18 13:54 | Outpatient (CLI) | payer BC, SELFPAY ==
--- NOTE | 2021-06-18 13:59 | MM_ITS ---
PROCEDURE INFORMATION: Exam: US Left Breast, Complete MG Left Diagnostic Breast Tomosynthesis Exam date and time: 06/18/2021 1:59 PM Age: 50 years old Clinical indication: Short-term follow-up was recommended on 12/13/2020 to assess stability of 5 mm area of nodularity noted in the lateral aspect of the left breast seen on exaggerated CC view TECHNIQUE: Imaging protocol: Complete ultrasound of all four quadrants of the Left breast and the retroareolar regions, including ultrasound of the axilla when performed. Left Diagnostic tomosynthesis and 2D mammography including computer-aided detection (CAD) when performed. Unilateral or bilateral exam. COMPARISON: 1. MG MM DIG SCREENING MAMM BI W/CAD 12/13/2020 11:00 AM 2. MG MAZIN OBDULIO DIGITAL SCREEN BILATERAL 10/21/2018 9:08 AM FINDINGS: MAMMOGRAPHY: The breast tissue is heterogeneously dense, which may obscure small masses. There is a persistent 5 mm upper outer left middle 1/3 focal asymmetry about 7 cm from the left nipple without associated architectural distortion or suspicious calcifications. This has not changed when compared with 12/13/2020. No new mass, architectural distortion, or suspicious calcifications have developed to suggest malignancy. No axillary adenopathy. ULTRASOUND: Ultrasound assessment of the entire left breast was performed. Hypoechoic and anechoic horizontally oriented mostly circumscribed generally septated morphologically similar appearing masses have features of complicated cysts as follows: 6 x 5 x 2 mm left 1 o'clock 4 cm from the nipple 9 x 7 x 3 mm left 2 o'clock 6 cm from the nipple 7 x 6 x 3 mm left 6 o'clock 5 cm from the nipple 6 x 3 x 6 mm left 6 o'clock 5 cm from the nipple 3 x 4 x 4 mm left 10 o'clock 5 cm from the nipple 10 x 9 x 4 mm left 11 o'clock 4 cm from the nipple Normal left axillary lymph nodes are detected IMPRESSION: There are numerous morphologically similar appearing probably benign complicated cystic structures in the left breast. Six-month follow-up ultrasound is recommended to assure stability ASSESSMENT: BI-RADS category 3: Probably benign
== END ==
PROVIDERS: PCP Internal Medicine Adolescent Medicine; Visit Provider Internal Medicine Adolescent Medicine
DX: R92.8 Other abnormal and inconclusive findings on diagnostic imaging of breast (principal)
CPT/HCPCS: 76641; 77061; 77065; G0279

== ENCOUNTER → 2021-12-17 12:06 | Outpatient (CLI) | payer BC, SELFPAY ==
--- NOTE | 2021-12-17 12:20 | XR_ITS ---
FINAL REPORT CLINICAL HISTORY: CHRONIC COUGH,HOARSENESS OF VOICE,FAMILY H/O TB FINDINGS: Two views of the chest were obtained. The heart size and pulmonary vascularity are within normal limits. The mediastinum is normal. No acute pulmonary abnormality is identified. There is no pneumothorax. The bony thorax is intact. IMPRESSION: No active cardiopulmonary disease. Reviewed, Interpreted and Dictated by Alex Maldonado III, MD Transcribed by Betty Andujar Authenticated and [facility]
[2021-12-17 12:51] LABS: Basophils # 0.1 K/mm3 (0-0.2); Basophils % 1.7 % (0.1-2.0); Eosinophils # 0.1 K/mm3 (0.0-0.4); Eosinophils % 2.5 % (0.1-12.0); Hematocrit 43.8 % (37.0-47.0); Hemoglobin 13.8 g/dL (12.2-16.2); Lymphocytes % 36.8 % (10-50); Mean Corpuscular HGB Conc 31.6 g/dL (31.8-35.4); Mean Corpuscular Hemoglobin 30.1 pg (27.0-31.2); Mean Corpuscular Volume 95.3 fl (81-99); Mean Platelet Volume 9.7 fl (7.4-10.4); Monocytes # 0.2 K/mm3 (0.1-1.0); Monocytes % 3.6 % (1.7-9.3); Neutrophils % 55.5 % (37.0-80.0); Platelet Count 260 K/mm3 (142-424); Red Cell Distribution Width 13.2 % (11.5-17.5); White Blood Count 5.4 K/mm3 (4.8-10.8)
[2021-12-17 13:21] LABS: Alanine Aminotransferase 16 U/L (12-78); Albumin Level 4.5 g/dl (3.5-5.0); Alkaline Phosphatase 65 U/L (38-126); Anion Gap 11.4 mEq/L (5-15); Aspartate Amino Transferase 22 U/L (14-36); Blood Urea Nitrogen 10 mg/dl (7-17); Calcium 9.6 mg/dl (8.4-10.2); Carbon Dioxide 31 mmol/L (22.0-30.0); Chloride 102 mmol/L (98-107); Estimated Glomerular Filt Rate 65 ml/min (>60); GFR (African American) 79 ML/MIN (>60); Globulin 2.3 g/dL (1.3-3.2); Glucose 105 mg/dl (74-100); Potassium 4.4 mmoL/L (3.5-5.1); Sodium 140 mmol/L (136-145); Total Protein,Serum 6.8 g/dl (6.3-8.2)
[2021-12-17 13:23] LABS: Bilirubin,Total < 0.1 mg/dl (0.2-1.3)
[2021-12-20 13:14] LABS: QuantiFERON-TB Gold Plus Negative (Negative)
== END ==
PROVIDERS: PCP Internal Medicine Adolescent Medicine; Visit Provider Internal Medicine Adolescent Medicine
DX: R05.3 Chronic cough (principal); R49.0 Dysphonia; Z83.6 Family history of other diseases of the respiratory system
CPT/HCPCS: 36415; 71046; 80053; 85025; 86480

== ENCOUNTER → 2021-12-18 13:15 | Outpatient (CLI) | payer BC, SELFPAY ==
--- NOTE | 2021-12-18 13:25 | CT_ITS ---
FINAL REPORT TECHNIQUE: Thin section axial CT images of the facial bones and sinuses were obtained without contrast. Coronal reformatted images were also obtained. This study was performed with techniques to keep radiation doses as low as reasonably achievable, (ALARA). Individualized dose reduction techniques using automated exposure control or adjustment of mA and/or kV according to the patient's size were employed. CLINICAL HISTORY: CHRONIC COUGH; HOARSENESS OF VOICE, nasal drainage FINDINGS: CT SINUSES There is no evidence of mucosal thickening. No fluid levels are identified. The ostiomeatal units have an unremarkable appearance. There is mild leftward nasal septal deviation with a left-sided nasal septal spur. No acute fracture is identified. 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 IMPRESSION: No focal abnormality identified of the sinuses. Reviewed, Interpreted and Dictated by Alex Maldonado III, MD Transcribed by Carmen Matias Authenticated and [facility]
--- NOTE | 2021-12-18 13:29 | MM_ITS ---
PROCEDURE INFORMATION: Exam: MG Bilateral Diagnostic Breast Tomosynthesis Exam date and time: 12/18/2021 1:33 PM Age: 51 years old Clinical indication: Short-term radiographic followup; Additional info: Abnormal mammogram of left breast, time for yearly TECHNIQUE: Imaging protocol: Bilateral Diagnostic tomosynthesis and 2D mammography including computer-aided detection (CAD) when performed. Unilateral or bilateral exam. COMPARISON: 1. MG MM DIG MAMM DX UNILAT LT CAD 06/18/2021 2:00 PM 2. MG MM DIG SCREENING MAMM BI W/CAD 12/13/2020 11:00 AM 3. MG MAZIN OBDULIO DIGITAL SCREEN BILATERAL 10/21/2018 9:08 AM FINDINGS: MAMMOGRAPHY: Breast density: The breasts are heterogeneously dense, which may obscure small masses. Mass: No suspicious masses. Previously noted partially obscured 0.5 cm asymmetry in the left upper outer quadrant appears less conspicuous on exaggerated CC lateral view today, favoring probably benign etiology. Architectural distortion: No suspicious distortion. Calcifications: No suspicious calcifications. Asymmetric density: None. Skin thickening: None. Axillary adenopathy: None. IMPRESSION: Of note, previously noted complex cystic mass in the 11 o'clock position of the left breast has increased in size and appears more solid on ultrasound dated 12/18/2021 compared to prior exam, reported separately. This lesion is not well visualized on mammogram. Recommend left breast ultrasound-guided core needle biopsy of the indeterminate complex 1.3 cm solid mass in the 11 o'clock position for further evaluation. Also recommend post biopsy diagnostic mammogram to confirm biopsy clip placement. No new suspicious mammographic findings in either breast. Previously noted partially obscured asymmetry in the left upper outer quadrant appears less conspicuous compared to prior exam, favoring benign etiology. As a precaution recommend 6 month follow-up diagnostic mammogram of the left breast to confirm stability. The remainder of the complicated cysts in the left breast seen on recent ultrasound dated 12/18/21, reported separately, favor probably benign etiology. Recommend six-month follow-up ultrasound to confirm stability. Of note, 2 years of documented stability should be obtained compared to initial ultrasound dated 06/18/21 in order to confirm benignity. ASSESSMENT: BI-RADS Category 4: Suspicious
--- NOTE | 2021-12-18 13:30 | US_ITS ---
PROCEDURE INFORMATION: Exam: US Left Breast, Complete Exam date and time: 12/18/2021 2:39 PM Age: 51 years old Clinical indication: Abnormal findings on imaging; Left; Additional info: Abnormal mammogram of left breast TECHNIQUE: Imaging protocol: Complete ultrasound of all four quadrants of the Left breast and the retroareolar regions, including ultrasound of the axilla when performed. COMPARISON: US BREAST LT COMPLETE 06/18/2021 2:43 PM FINDINGS: High resolution sonography of the LEFT breast demonstrates multiple nodules and anechoic cysts. 1 o'clock 4 cm from the nipple - 8 x 4 x 6 mm hypoechoic nodule. 2 o'clock 6 cm from the nipple - 3 x 8 x 10 mm cystic nodule. 6 o'clock 5 cm from the nipple - 4 x 7 x 8 mm hypoechoic nodule. 10 o'clock 5 cm from the nipple - 4 x 7 x 6 mm hypoechoic nodule. 11 o'clock 4 cm from the nipple - 1.3 x 0.8 x 1.0 cm echogenic nodule. . Morphologically normal appearing LEFT breast and axillary lymph nodes. IMPRESSION: 1. Multiple LEFT breast nodule/cyst as described. 2. Recommend correlation with mammograms and FNA/biopsy as clinically indicated. ASSESSMENT: BI-RADS 0: Need Additional Imaging Evaluation and/or Prior Mammograms For Comparison
== END ==
PROVIDERS: PCP Internal Medicine Adolescent Medicine; Visit Provider Internal Medicine Adolescent Medicine
DX: R92.8 Other abnormal and inconclusive findings on diagnostic imaging of breast (principal); R05.3 Chronic cough; R49.0 Dysphonia; Z83.6 Family history of other diseases of the respiratory system
CPT/HCPCS: 70486; 76641; 77062; 77066; G0279

== ENCOUNTER → 2022-01-03 09:03 | Outpatient (CLI) | payer BC, SELFPAY ==
--- NOTE | 2022-01-03 09:20 | US_ITS ---
FINAL REPORT CLINICAL HISTORY: lt breast biospy, THE BIOPSY WAS CANCELLED DUE TO NON REDUCABLE NODULE ON U/S FINDINGS: Findings: Patient was scheduled for ultrasound guided biopsy of an enlarging complex nodule measuring up to 1.3 cm. Patient has multiple lesions, most of which were stable from prior exam. During attempts to localize the nodule of interest a discrete nodule could not be reproduced. The findings seen on recent ultrasound was considered to represent a pseudo-nodule when reviewed under dynamic/live imaging. The normal parenchyma had a nodular configuration in this region. No true nodule was seen at this site. IMPRESSION: No reproducible nodule to warrant biopsy at this time. Pseudo-nodule caused by normal parenchyma accounting for the perceived enlargement seen him recent ultrasound. Continue sonographic follow-up recommended in 6 months. Authenticated and [facility]
== END ==
PROVIDERS: PCP Internal Medicine Adolescent Medicine; Visit Provider Internal Medicine Adolescent Medicine
DX: R92.8 Other abnormal and inconclusive findings on diagnostic imaging of breast (principal)

== ENCOUNTER → 2022-04-18 09:40 | Outpatient (CLI) | payer BC, SELFPAY ==
--- NOTE | 2022-04-18 09:41 | MR_ITS ---
FINAL REPORT CLINICAL HISTORY: possible pituitary mass. 12ml prohance given. FINDINGS: Multiplanar MR imaging of the brain was performed without and with contrast with attention to the pituitary. There is no evidence of intracranial hemorrhage or mass. No abnormal extra-axial fluid collection is seen. The ventricular size is within normal limits. There is no evidence of shift of the midline structures. The posterior fossa and brainstem have an unremarkable appearance. No area of abnormal restricted diffusion is identified. No abnormal contrast enhancement is seen. Normal major vessel vascular flow voids are noted. There is a fullness appearance to the pituitary gland. The infundibulum is in the midline. No discrete nodules are seen in the pituitary gland on pre and postcontrast images. There is no suprasellar mass. The optic chiasm is normal. IMPRESSION: No acute intracranial abnormality identified. Fullness of the pituitary without discrete nodule. Reviewed, Interpreted and Dictated by Antonio Posey MD Transcribed by Obey De La Vega Authenticated and [facility]
== END ==
PROVIDERS: PCP Internal Medicine Adolescent Medicine; Visit Provider Student in an Organized Health Care Education/Training Program
DX: E23.6 Other disorders of pituitary gland (principal)
CPT/HCPCS: 70553; A9576

== ENCOUNTER → 2022-05-17 10:20 | Outpatient (CLI) | payer BC, SELFPAY ==
[2022-05-17 11:24] LABS: Basophils # 0.1 K/mm3 (0-0.2); Basophils % 1.6 % (0.1-2.0); Eosinophils # 0.4 K/mm3 (0.0-0.4); Eosinophils % 6.6 % (0.1-12.0); Hematocrit 42.5 % (37.0-47.0); Hemoglobin 13.4 g/dL (12.2-16.2); Lymphocytes # 2.3 K/mm3 (0.7-4.5); Mean Corpuscular HGB Conc 31.4 g/dL (31.8-35.4); Mean Corpuscular Hemoglobin 29.6 pg (27.0-31.2); Mean Corpuscular Volume 94.1 fl (81-99); Mean Platelet Volume 8.6 fl (7.4-10.4); Monocytes # 0.3 K/mm3 (0.1-1.0); Monocytes % 5.1 % (1.7-9.3); Neutrophils # 3.1 K/mm3 (1.8-7.8); Neutrophils % 49.7 % (37.0-80.0); Platelet Count 235 K/mm3 (142-424); Red Blood Count 4.52 M/mm3 (4.20-5.40); Red Cell Distribution Width 13.7 % (11.5-17.5); White Blood Count 6.2 K/mm3 (4.8-10.8)
[2022-05-17 11:43] LABS: Amphetamine/Metha Screen,Urine Negative ng/ml (<1000); Barbiturates Screen,Urine Negative ng/ml (<200)
[2022-05-17 11:44] LABS: Alanine Aminotransferase 60 U/L (12-78); Albumin Level 4.1 g/dl (3.5-5.0); Albumin/Globulin Ratio 1.9 (1.1-1.8); Alkaline Phosphatase 64 U/L (38-126); Anion Gap 9.5 mEq/L (5-15); Aspartate Amino Transferase 42 U/L (14-36); Benzodiazepines Screen,Urine Negative ng/ml (<200); Bilirubin,Total 0.3 mg/dl (0.2-1.3); Blood Urea Nitrogen 10 mg/dl (7-17); Calcium 8.7 mg/dl (8.4-10.2); Carbon Dioxide 32 mmol/L (22.0-30.0); Chloride 103 mmol/L (98-107); Estimated Glomerular Filt Rate 58 ml/min (>60); GFR (African American) 70 ML/MIN (>60); Globulin 2.2 g/dL (1.3-3.2); Glucose 84 mg/dl (74-100); Potassium 4.5 mmoL/L (3.5-5.1); Sodium 140 mmol/L (136-145); Total Protein,Serum 6.3 g/dl (6.3-8.2)
[2022-05-17 11:45] LABS: Cannabinoid Screen,Urine Negative ng/ml (<50); Cocaine Screen,Urine Negative ng/ml (<300)
[2022-05-17 11:46] LABS: Methadone Screen,Urine Negative ng/ml (<300)
[2022-05-17 11:47] LABS: Opiate Screen,Urine Negative ng/ml (<300); Phencyclidine Screen,Urine Negative ng/ml (<25)
[2022-05-17 12:14] LABS: Thyroid Stimulating Hormone 3.32 uIU/mL (0.465-4.68)
== END ==
PROVIDERS: PCP Internal Medicine Adolescent Medicine; Visit Provider Internal Medicine Adolescent Medicine
DX: M54.12 Radiculopathy, cervical region (principal); M40.292 Other kyphosis, cervical region; E03.9 Hypothyroidism, unspecified
CPT/HCPCS: 36415; 80053; 80305; 84443; 85025

== ENCOUNTER → 2022-07-11 12:59 | Outpatient (CLI) | payer BC, SELFPAY ==
--- NOTE | 2022-07-11 13:05 | MM_ITS ---
PROCEDURE INFORMATION: Exam: MG Left Diagnostic Breast Tomosynthesis Exam date and time: 07/11/2022 1:04 PM Age: 51 years old Clinical indication: Short-term radiographic followup; Left breast; masses TECHNIQUE: Imaging protocol: Left Diagnostic tomosynthesis and 2D mammography including computer-aided detection (CAD) when performed. Unilateral or bilateral exam. COMPARISON: 1. MG MM DIG MAMM BI DX W/CAD 12/18/2021 1:33 PM 2. MG MM DIG MAMM DX UNILAT LT CAD 06/18/2021 2:00 PM FINDINGS: MAMMOGRAPHY: The breast is heterogeneously dense, which may obscure small masses. There is no stellate mass, architectural distortion or suspicious microcalcifications to suggest malignancy. No skin thickening or axillary adenopathy. IMPRESSION: No mammographic evidence of malignancy. Follow-up left breast ultrasound is recommended for masses seen on prior ultrasound dated 12/18/2021 ASSESSMENT: BI-RADS Category 0: Incomplete- Need Additional Imaging Evaluation and/or Prior Mammograms for Comparison
--- NOTE | 2022-07-11 13:05 | US_ITS ---
PROCEDURE INFORMATION: Exam: US Left Breast, Complete Exam date and time: 07/11/2022 2:10 PM Age: 51 years old Clinical indication: Short-term follow-up which began 06/18/2021 to assess stability of morphologically similar appearing cystic left breast masses. TECHNIQUE: Imaging protocol: Complete ultrasound of all four quadrants of the left breast and the retroareolar regions, including ultrasound of the axilla when performed. COMPARISON: US BREAST LT COMPLETE 12/18/2021 and 06/18/2021 FINDINGS: Breast: Heterogeneous complex cystic appearing mass along the 11 o'clock axis 4 cm from the nipple is predominantly solid and lobulated. This measures 0.9 x 0.6 x 0.6 cm compared with 0.9 x 0.5 by 1.0 cm on 06/18/2021 Along the 9 o'clock axis 6 cm from the nipple there is a round hypoechoic a 0.4 x 0.4 x 0.4 cm solid-appearing mass. The I suspect this was previously measured at 0.4 x 0.4 x 0.3 on 06/18/2021, designated as 10 o'clock 5 cm from the nipple Anechoic circumscribed cysts measure up to about 1.2 cm along the 2 o'clock axis left breast and 0.3 cm along the 5 o'clock axis, and 0.7 cm along the 6 o'clock axis left breast Retroareolar duct measures about 2 mm. IMPRESSION: Probably benign. Twelve month follow-up ultrasound assessment of the left breast is recommended to assure stability of a 0.9 cm 11 o'clock mass and 0.4 cm 9 o'clock mass which have remained stable given the difference in measuring technique dating back to 06/18/2021 ASSESSMENT: BI-RADS category 3: Probably benign
== END ==
PROVIDERS: PCP Internal Medicine Adolescent Medicine; Visit Provider Internal Medicine Adolescent Medicine
DX: R92.8 Other abnormal and inconclusive findings on diagnostic imaging of breast (principal)
CPT/HCPCS: 76641; 77061; 77065; G0279

== ENCOUNTER → 2022-08-26 07:53 | Outpatient (CLI) | payer BC, SELFPAY ==
--- NOTE | 2022-08-26 07:53 | FL_ITS ---
FINAL REPORT CLINICAL HISTORY: voice changes x 1 year 1.09 fluoro time FINDINGS: ESOPHAGRAM HISTORY: Voice changes.Worsening hoarseness. Fluoroscopy time: 1 minute 9 seconds. 14 fluoroscopic spot films obtained. PROCEDURE: The patient ingested barium. Effervescent crystals were also administered. Spot and overhead films were obtained. FINDINGS: The esophagus is normal. There is a small sliding type hiatal hernia. Gastroesophageal reflux was seen to the thoracic inlet. Esophageal dysmotility was demonstrated during the exam. A 13 mm barium tablet passes through the esophagus and into the stomach without delay. IMPRESSION: Small sliding-type hiatal hernia with gastroesophageal reflux and esophageal dysmotility. Films reviewed , interpreted and dictated by Dr. Maldonado. Transcribed by Rm Gloria PA-C. Reviewed, Interpreted and Dictated by Alex Maldonado III, MD Transcribed by ABBY Fulton Authenticated and [facility]
== END ==
PROVIDERS: PCP Internal Medicine Adolescent Medicine; Visit Provider Student in an Organized Health Care Education/Training Program
DX: R49.9 Unspecified voice and resonance disorder (principal)
CPT/HCPCS: 74220

== ENCOUNTER 2022-10-03 13:27 | Day surgery (SDC) | payer BC, SELFPAY ==
[2022-09-27 13:49] VITALS: BMI 25.4
[2022-10-03 13:51] VITALS: BP 127/81; PULSE 97; RESP 18; TEMP 36.7; O2SAT 99
--- NOTE | 2022-10-03 13:54 | P.PN_ITS ---
[facility] Disclaimer: The information contained in this section may have been updated after the patient was seen, as this information can be updated by other users. Medical History Chronic cough Constipation in female Deviated septum GERD (gastroesophageal reflux disease) Hoarseness or changing voice Nasal drainage Pituitary mass Thyroid disease Surgical History History of delivery Hx of arthroscopic knee surgery Family History Other Family history of hypothyroidism Social History Smoking Status: Never smoker second hand exposure: No alcohol intake: current substance use type: denies use current occupational status: employed Travel in the last 8 weeks: None household members: spouse and family housing: house current occupation: [employer] current occupational exposures/hazards: No caffeine: Yes [facility] Anesthesia Checklist Patient Identification Patient Identification: Arm Band and Verbal (Name & ) Structural Data Admitted From: Home Planned Operative Procedure/s: EGD Consent for Planned Operative Procedure(s) Verified: Yes NPO Status Verified Time NPO: 00:00 Additional verifications Anesthesia Reactions: No Hx Blood Transfusions: No Blood Transfusion Reaction: No Airway Assessment C-Spine Mobility Assessed: Yes TMJ Mobility Assessed: Yes Dentition: Good Dentition Neurological Assessment Level of Consciousness: Awake Hx Seizures: No Numbness or tingling in extremities: No Anesthesia Plan Anesthesia Risk discussed: Yes Anesthesia Plan: Verified ASA Class: II Anesthesia Type: MAC
[2022-10-03 14:11] VITALS: O2SAT 99
[2022-10-03 14:24] VITALS: BP 107/70; PULSE 86; RESP 16; TEMP 36.6; O2SAT 95
--- NOTE | 2022-10-03 14:26 | HMH.SCOPE ---
Procedure: Date: 10/03/22 Patient Date of :: 1970 Procedure Performed:: EGD & biopsies Bougie dilation Indications:: Dysphagia, hoarseness, check for Barretts Performing Provider:: Stanley Martínez MD Referring Provider:: Shefali Martínez APRN Sedation:: Propofol Procedure:: The gastroscope was gently passed through the incisoral orifice into the oral cavity and under direct visualization the esophagus was intubated. The endoscope was passed down the esophagus, through the stomach, and into the duodenum. Color, texture, mucosa, and anatomy of the esophagus, stomach, and duodenum were carefully examined with the scope. Findings:: Oropharynx: normal Esophagus: multiple rings, schatzki's ring, dilated with 58F bougie, biopsies obtained for evaluation of EoE, no evidence of barretts. EG Junction: intact at 40 cm Cardia: normal Fundus: normal Body: normal Antrum: normal Duodenal bulb: normal Duodenum (second and third portion): normal Impression: Possible EoE, Schatzki's ring Specimens:: Esophagus Recommendations:: Repeat EGD with dilation in about THREE years or so. F/U with GI Clinic for pathology results. Complications:: None Estimated blood obtained (mL): 0
[2022-10-03 14:34] VITALS: BP 105/61; PULSE 87; RESP 17; O2SAT 95
[2022-10-03 14:44] VITALS: BP 115/69; PULSE 88; RESP 16; O2SAT 95
[2022-10-03 14:54] VITALS: BP 115/69; PULSE 88; RESP 16; O2SAT 95
== END 2022-10-03 15:00 | disposition home or self-care (01) ==
PROVIDERS: PCP Internal Medicine Adolescent Medicine; Visit Provider Internal Medicine Gastroenterology
PROC: 0DJ08ZZ Inspection of Upper Intestinal Tract, Via Natural or Artificial Opening Endoscopic (ICD-10-PCS; CPT 43235; principal; 2022-10-03 14:30)
DX: R13.10 Dysphagia, unspecified (principal); K21.9 Gastro-esophageal reflux disease without esophagitis; K22.2 Esophageal obstruction; Z79.899 Other long term (current) drug therapy
CPT/HCPCS: 43239; 43248

== ENCOUNTER → 2023-06-18 09:58 | Outpatient (POV) | payer BC, SELFPAY ==
--- NOTE | 2023-06-18 10:22 | EXP.PAIN.OV ---
HPI Data of Consult Patient: new to practice Consult date: 06/18/23 Requesting Physician: Frieda Henao APRN Primary Care Provider: Mariano Pedraza MD Consult Narrative Reason for consult: Neck pain, low back pain History of present illness: Ms. Patiño is a 52 year old female who presents today as a new patient. She is a referral from Dr. Pedraza's office. Today she rates her pain a 6 out of 10. Patient states her pain is all in her neck with the right side worse than the left and low back. Patient denies any radiating symptoms into her extremities. Patient states this has been going on since she was very young. Patient states she got diagnosed with fibromyalgia in 1993. Patient does describe her chronic pain as a aching, occasional throbbing sensation that is worse with certain movements such as bending twisting or lifting. Patient does state the pain interferes with her ability perform activities of daily living such as cooking and cleaning. Patient states in the past she had saw a pain clinic that did do injections and most of those only had minor improvement or temporary improvement. Patient does state that she had significant relief from a cervical RFA. Patient states this would have been done back in 2011. She states that she has not had any additional injections since then. Patient has tried [id number] Tylenol and ibuprofen along with heat and ice and topicals such as Voltaren and Biofreeze with no relief. Patient has tried multiple times with chiropractor therapy and physical therapy with no additional improvement. Patient denies any recent imaging.Patient is currently managed with oxycodone 10 mg 3 times a day and temazepam 15 mg daily from her PCP. Her Blayne has been reviewed and is appropriate. CC: Frieda Henao APRN [facility] Disclaimer: The information contained in this section may have been updated after the patient was seen, as this information can be updated by other users. Medical History Chronic cough Constipation in female Deviated septum GERD (gastroesophageal reflux disease) Hoarseness or changing voice Nasal drainage Pituitary mass Thyroid disease Surgical History History of delivery Hx of arthroscopic knee surgery right Family History Other Family history of hypothyroidism Social History (Updated 06/18/23 @ 10:03 by Nandini Dickey RN) Smoking Status: Never smoker second hand exposure: No alcohol intake: current substance use type: denies use current occupational status: employed Travel in the last 8 weeks: None household members: spouse and family housing: house current occupation: [employer] current occupational exposures/hazards: No caffeine: Yes Review of Systems Review of Systems Review of systems:: pertinent systems reviewed and negative unless documented below Review of systems (narrative): Review of Systems: General: No recent weight changes, no fever, no sleep disturbances Respiratory: No cough, no shortness of air, no recurring pulmonary infections Cardiovascular/peripheral vascular: No chest pain, no palpitations, no edema, no shortness of breath Gastrointestinal: No new onset incontinence, normal bowel movements reported Genitourinary: No new onset incontinence Musculoskeletal: Neck pain, low back pain Psychiatric: [Normal mood/affect] Neurological: [Denies weakness in extremities], [denies balance issues] Meds Home Medications and Allergies Home Medications Medication Instructions Recorded Confirmed Type amitriptyline 100 mg tablet 100 mg PO HS fibromyalgia 06/14/20 10/10/22 History calcium carbonate 600 mg calcium 600 mg PO DAILY Supplement 06/14/20 10/10/22 History (1,500 mg) tablet (Calcium) psyllium husk 0.52 gram capsule 0.52 g PO DAILY metamucil 06/14/20 10/10/22 History (Metamucil) temazepam 15 mg capsule 15 mg PO HS sleep 06/14/20 10/10/22 History cyclobenzaprine 10 mg tablet 10 mg PO NEEDED PRN Spasms 04/03/22 10/10/22 History fluticasone propionate 50 2 spray intranasal DAILY allergies 04/03/22 10/10/22 History mcg/actuation nasal spray,suspension levocetirizine 5 mg tablet 5 mg PO HS allergies 04/03/22 10/10/22 History levothyroxine 88 mcg tablet 88 mcg PO DAILY thyroid 04/03/22 10/10/22 History venlafaxine 150 mg 150 mg PO DAILY Depression 04/03/22 10/10/22 History capsule,extended release 24 hr omeprazole 40 mg capsule,delayed 40 mg PO DAILY Reflux/Acid reflux 10/03/22 10/10/22 History release famotidine 40 mg tablet 40 mg PO 10/10/22 10/10/22 History tizanidine 2 mg tablet 4 mg PO 10/10/22 10/10/22 History New Prescriptions to Start Prescriptions: Allergies Allergy/AdvReac Type Severity Reaction Status Date / Time acetaminophen [From Midrin] AdvReac Hallucinati Verified 10/10/22 09:35 ng dichloralphenazone AdvReac Hallucinati Verified 10/10/22 09:35 [From Midrin] ng isometheptene [From Midrin] AdvReac Hallucinati Verified 10/10/22 09:35 ng Objective Narrative: Physical Exam: General: Alert and oriented x3, no acute distress, pleasant and cooperative Lungs: Respirations even and unlabored, symmetrical chest expansion Eyes: PERRL Musculoskeletal: Flexion and extension of cervical [spine] somewhat guarded secondary to pain, [antalgic gait noted] positive Kemps test Neurological: Speech clear, no gross sensory deficit Assessment and Plan *Assessment and plan (1) Neck pain: Status: Acute Category: Medical Code(s): M54.2 - Cervicalgia (2) Facet arthropathy, cervical: Status: Acute Category: Medical Code(s): M47.812 - Spondylosis without myelopathy or radiculopathy, cervical region (3) Fibromyalgia: Status: Acute Category: Medical Code(s): M79.7 - Fibromyalgia (4) Low back pain: Status: Acute Qualifiers: Chronicity: chronic Back pain laterality: bilateral Sciatica presence: without sciatica Qualified Code(s): M54.50 - Low back pain, unspecified; G89.29 - Other chronic pain Category: Medical Code(s): M54.50 - Low back pain, unspecified Plan Patient is experiencing significant pain in her neck and low back. Patient had limited range of motion of her cervical spine and a positive Kemps test. I have discussed with the patient that she may benefit from cervical medial branch blocks and cervical RFA in the future. Risk and benefits of these injections were explained to the patient. I will order x-ray and cervical MRI without contrast imaging first. I will also the order the patient a compounded cream. I have discussed with the patient due to this being a chronic issue that is gone on for years patient also may benefit from a intrathecal pain pump in the future. We can discuss this at future visits. Patient has tried and failed conservative treatment such as oral medications, heat and ice, topicals, physical therapy, chiropractor therapy, at home stretching exercise for longer than 6 weeks. Patient will return to clinic in 1 month following her imaging for reevaluation of symptoms and plan of care. Patient has been instructed to contact the clinic with any concerns before the next appointment. Dr. Bustamante has reviewed this note and agrees with this plan of care. This note was dictated using voice recognition software and make contain errors or omissions.
[2023-06-18 13:05] VITALS: BP 134/83; PULSE 95; RESP 18; O2SAT 96; BMI 25.3
== END ==
LOC: SC.PAIN 09:58
PROVIDERS: PCP Internal Medicine Adolescent Medicine; Visit Provider Nurse Practitioner Family
DX: M47.812 Spondylosis without myelopathy or radiculopathy, cervical region (principal); M54.2 Cervicalgia; M79.7 Fibromyalgia; M54.50 Low back pain, unspecified; G89.29 Other chronic pain
CPT/HCPCS: 99202; G0463

== ENCOUNTER 2023-07-28 13:20 | Outpatient (CLI) | payer BC, SELFPAY ==
--- NOTE | 2023-07-28 13:30 | XR_ITS ---
FINAL REPORT CLINICAL HISTORY: NECK PAIN COMPARISON: None FINDINGS: CERVICAL SPINE 5 views were obtained. There is no acute fracture or malalignment. There is mild degenerative change with osteophytes. There is mild C5-6 neuroforaminal narrowing. There is straightening of the spine likely due to positioning or muscle spasm. IMPRESSION: Mild degenerative change without acute bony abnormality. Straightening of the cervical spine. Reviewed, Interpreted and Dictated by Alex Maldonado III, MD Transcribed by Carolyn Barrera Authenticated and [facility]
== END 2023-07-28 23:59 ==
LOC: RAD 13:20
PROVIDERS: PCP Internal Medicine Adolescent Medicine; Visit Provider Nurse Practitioner Family
DX: M54.2 Cervicalgia (principal)
CPT/HCPCS: 72050

== ENCOUNTER 2023-07-30 09:30 | Outpatient (POV) | payer BC, SELFPAY ==
--- NOTE | 2023-07-30 10:11 | EXP.PAIN.SOA ---
[facility] Pain Management SOAP Note Subjective:: Patient is a pleasant 52-year-old female who presents today for follow-up of cervical x-ray. Today she rates her pain a 7 out of 10. Patient denies any new trauma or injury. She states she continues to have chronic neck pain that is worse with bending or twisting. Patient does state that it does go into her right shoulder and her pain does affect her ability perform activities of daily living. Patient has had cervical RFA's in the past that did provide significant improvement. From our last visit she states she has not yet gotten her compounded cream. Patient is currently prescribed oxycodone and temazepam from outside providers. Her Blayne has been reviewed and is appropriate. Review of Systems: General: No recent weight changes, no fever, no sleep disturbances Respiratory: No cough, no shortness of air, no recurring pulmonary infections Cardiovascular/peripheral vascular: No chest pain, no palpitations, no edema, no shortness of breath Gastrointestinal: No new onset incontinence, normal bowel movements reported Genitourinary: No new onset incontinence Musculoskeletal: Neck pain, right shoulder pain Psychiatric: [Normal mood/affect] Neurological: [Denies weakness in extremities], [denies balance issues] Objective:: Physical Exam: General: Alert and oriented x3, no acute distress, pleasant and cooperative Lungs: Respirations even and unlabored, symmetrical chest expansion Eyes: PERRL Musculoskeletal: Flexion and extension of cervical [spine] somewhat guarded secondary to pain, [antalgic gait noted] positive Kemps test Neurological: Speech clear, no gross sensory deficit His mainFINDINGS: CERVICAL SPINE 5 views were obtained. There is no acute fracture or malalignment. There is mild degenerative change with osteophytes. There is mild C5-6 neuroforaminal narrowing. There is straightening of the spine likely due to positioning or muscle spasm. IMPRESSION: Mild degenerative change without acute bony abnormality. Straightening of the cervical spine. Reviewed, Interpreted and Dictated by Alex Maldonado III, MD Transcribed by Carolyn Barrera Authenticated and . [facility] Assessment:: Degenerative disc disease of cervical spine with cervical spondylosis, right shoulder pain, low back pain Plan:: Patient continues to experience significant pain in her neck with a positive Kemps test and point tenderness along her right cervical paraspinous and right trapezius muscles. I have discussed with the patient in future she may benefit from cervical medial branch block and trigger point injections. We will follow-up with this with her cervical MRI without contrast. Patient is planning on ordering her compounded cream and we will see at the next visit how this is helping improve her symptoms. Patient will return to clinic in 1 month for reevaluation of symptoms and plan of care. Patient has been instructed to contact the clinic with any concerns before the next appointment. Dr. Bustamante has reviewed this note and agrees with this plan of care. This note was dictated using voice recognition software and make contain errors or omissions. [facility] Disclaimer: The information contained in this section may have been updated after the patient was seen, as this information can be updated by other users. Medical History Chronic cough Constipation in female Deviated septum GERD (gastroesophageal reflux disease) Hoarseness or changing voice Nasal drainage Pituitary mass Thyroid disease Surgical History History of delivery Hx of arthroscopic knee surgery right Family History Other Family history of hypothyroidism Social History (Updated 06/18/23 @ 10:03 by Nandini Dickey RN) Smoking Status: Never smoker second hand exposure: No alcohol intake: current substance use type: denies use current occupational status: employed Travel in the last 8 weeks: None household members: spouse and family housing: house current occupation: [employer] current occupational exposures/hazards: No caffeine: Yes
[2023-07-30 11:02] VITALS: BP 117/89; PULSE 92; RESP 18; O2SAT 96; BMI 25.1
== END 2023-07-30 23:59 ==
LOC: SC.PAIN 09:31
PROVIDERS: PCP Internal Medicine Adolescent Medicine; Visit Provider Nurse Practitioner Family
DX: M50.322 Other cervical disc degeneration at C5-C6 level (principal); M47.812 Spondylosis without myelopathy or radiculopathy, cervical region; M25.511 Pain in right shoulder; M54.50 Low back pain, unspecified; M79.18 Myalgia, other site
CPT/HCPCS: 99212; G0463

== ENCOUNTER 2023-08-26 13:33 | Outpatient (CLI) | payer BC, SELFPAY ==
--- NOTE | 2023-08-26 13:56 | MR_ITS ---
FINAL REPORT CLINICAL HISTORY: NECK PAIN X MANY YEARS PAIN MAINLY AROUND C7 FINDINGS: Multiplanar MR imaging of the cervical spine was performed without contrast. On the sagittal T2-weighted images, disc degeneration is seen throughout. There is no evidence of fracture. The vertebral alignment is normal. The cervical spinal cord has an unremarkable appearance without evidence of mass, edema or syrinx. No significant canal stenosis is identified. The cervicomedullary junction is norm foraminal narrowing. There is a sclerotic focus in the T1 vertebra of uncertain significance. There is also sclerotic focus in the left C2 vertebra. C2-3: There is no significant canal stenosis or neural foraminal narrowing. C3-4: There is no significant canal stenosis or neural foraminal narrowing. C4-5: There is no significant canal stenosis or neural foraminal narrowing. C5-6: Disc osteophyte complex is present. There is a right foraminal disc protrusion with severe right and mild left neural foraminal narrowing. C6-7: An annular disc bulge is present. There is a small left paracentral disc protrusion with mild left neural narrowing. C7-T1: There is no significant canal stenosis or neural foraminal narrowing. IMPRESSION: Sclerotic foci in the T1 and C2 vertebral bodies. If indicated, bone scan or follow-up MRI may be helpful. Differential diagnosis would include bone islands or sclerotic metastases. Right foraminal disc protrusion at C5-6 with severe right neural foraminal narrowing. Left paracentral disc protrusion at C6-7. Reviewed, Interpreted and Dictated by Alex Maldonado III, MD Transcribed by Kathie Newton Authenticated and [facility]
== END 2023-08-26 23:59 | disposition home or self-care (01) ==
LOC: RAD 13:34
PROVIDERS: PCP Internal Medicine Adolescent Medicine; Visit Provider Nurse Practitioner Family
DX: M54.2 Cervicalgia (principal)
CPT/HCPCS: 72141; 76376

== ENCOUNTER 2023-08-28 13:04 | Outpatient (POV) | payer BC, SELFPAY ==
[2023-08-28 13:05] VITALS: BP 126/78; PULSE 102; RESP 16; O2SAT 94; BMI 25.4
--- NOTE | 2023-08-28 13:50 | A.OFFVIS_ITS ---
[facility] Pain Management SOAP Note Subjective:: Patient is a pleasant 52-year-old female who presents today for follow-up of cervical MRI. Today she rates her pain a 6 out of 10. Patient denies any new trauma or injury. She does state that she continues to have chronic pain at her neck with some burning sensation into her shoulders. She does describe her overall neck pain as a constant aching sensation that is worse with certain movements such as twisting from [id number] or looking up. Patient does state that the pain interferes with her ability to perform activities of daily living such as cooking and cleaning. Patient has gotten her compounded cream and states that this is helping. Patient is prescribed oxycodone and temazepam from an outside provider. Her Blayne has been reviewed and is appropriate. Review of Systems: General: No recent weight changes, no fever, no sleep disturbances Respiratory: No cough, no shortness of air, no recurring pulmonary infections Cardiovascular/peripheral vascular: No chest pain, no palpitations, no edema, no shortness of breath Gastrointestinal: No new onset incontinence, normal bowel movements reported Genitourinary: No new onset incontinence Musculoskeletal: Neck pain Psychiatric: [Normal mood/affect] Neurological: [Denies weakness in extremities], [denies balance issues] Objective:: Physical Exam: General: Alert and oriented x3, no acute distress, pleasant and cooperative Lungs: Respirations even and unlabored, symmetrical chest expansion Eyes: PERRL Musculoskeletal: Flexion and extension of cervical [spine] somewhat guarded secondary to pain, [antalgic gait noted] positive Kemps test Neurological: Speech clear, no gross sensory deficit FINDINGS: Multiplanar MR imaging of the cervical spine was performed without contrast. On the sagittal T2-weighted images, disc degeneration is seen throughout. There is no evidence of fracture. The vertebral alignment is normal. The cervical spinal cord has an unremarkable appearance without evidence of mass, edema or syrinx. No significant canal stenosis is identified. The cervicomedullary junction is norm foraminal narrowing. There is a sclerotic focus in the T1 vertebra of uncertain significance. There is also sclerotic focus in the left C2 vertebra. C2-3: There is no significant canal stenosis or neural foraminal narrowing. C3-4: There is no significant canal stenosis or neural foraminal narrowing. C4-5: There is no significant canal stenosis or neural foraminal narrowing. C5-6: Disc osteophyte complex is present. There is a right foraminal disc protrusion with severe right and mild left neural foraminal narrowing. C6-7: An annular disc bulge is present. There is a small left paracentral disc protrusion with mild left neural narrowing. C7-T1: There is no significant canal stenosis or neural foraminal narrowing. IMPRESSION: Sclerotic foci in the T1 and C2 vertebral bodies. If indicated, bone scan or follow-up MRI may be helpful. Differential diagnosis would include bone islands or sclerotic metastases. Right foraminal disc protrusion at C5-6 with severe right neural foraminal narrowing. Left paracentral disc protrusion at C6-7. Reviewed, Interpreted and Dictated by Alex Maldonado III, MD Transcribed by Kathie Newton Authenticated and [facility] Assessment:: Degenerative disc disease of cervical spine with cervical spondylosis Plan:: Patient is experiencing significant pain in her neck with limited range of motion and a positive Kemps test. Patient's MRI findings were gone over with her during today's exam. I have discussed with the patient that she may benefit from a cervical medial branch block. Risk and benefits were discussed with patient and she would like to proceed forward with this plan of care. Patient has tried and failed conservative therapies with continued at home stretching exercise for longer than 6 weeks. Patient will be scheduled for a cervical medial branch block bilaterally C5-C6 and C6-C7 under fluoroscopy. Patient has been instructed to contact the clinic with any concerns before the next appointment. Dr. Bustamante has reviewed this note and agrees with this plan of care. This note was dictated using voice recognition software and make contain errors or omissions. [facility] Disclaimer: The information contained in this section may have been updated after the patient was seen, as this information can be updated by other users. Medical History Chronic cough Constipation in female Deviated septum GERD (gastroesophageal reflux disease) Hoarseness or changing voice Nasal drainage Pituitary mass Thyroid disease Surgical History History of delivery Hx of arthroscopic knee surgery right Family History Other Family history of hypothyroidism Social History Smoking Status: Never smoker second hand exposure: No alcohol intake: current substance use type: denies use current occupational status: other Travel in the last 8 weeks: None household members: spouse and family housing: house current occupation: [employer] current occupational exposures/hazards: No caffeine: Yes
== END 2023-08-28 23:59 ==
LOC: SC.PAIN 13:04
PROVIDERS: PCP Internal Medicine Adolescent Medicine; Visit Provider Nurse Practitioner Family
DX: M50.322 Other cervical disc degeneration at C5-C6 level (principal); M50.323 Other cervical disc degeneration at C6-C7 level; M47.812 Spondylosis without myelopathy or radiculopathy, cervical region
CPT/HCPCS: 99212; G0463

== ENCOUNTER 2023-09-05 15:36 | Outpatient (CLI) | payer BC, SELFPAY | END 2023-09-05 23:59 | disposition home or self-care (01) | LOC: LAB.DROPOF 15:37 | PROVIDERS: PCP Internal Medicine Adolescent Medicine; Visit Provider Physician Assistant | DX: R30.0 Dysuria (principal); B96.29 Other Escherichia coli [E. coli] as the cause of diseases classified elsewhere | CPT/HCPCS: 87086 ==

== ENCOUNTER 2023-09-16 13:56 | Day surgery (SDC) | payer BC, SELFPAY ==
[2023-09-16 14:04] VITALS: BP 110/73; PULSE 95; RESP 18; TEMP 36.2; O2SAT 98; BMI 25.4
[2023-09-16] MEDS: BUPIVACAINE 0.25% 10ML INJ 25 MG IJ (14:15)
[2023-09-16] MEDS: IOPAMIDOL-200 (41%);10ML VIAL 10 ML IV (14:15)
[2023-09-16] MEDS: methylPREDNISolone ACETATE 80MG/ML VIAL 80 MG (14:16)
[2023-09-16] MEDS: LIDOCAINE 1% 5ML PF VIAL 5 ML (14:16)
[2023-09-16 14:17] VITALS: BP 128/84; PULSE 102; RESP 20; O2SAT 96
[2023-09-16 14:18] VITALS: BP 128/84; PULSE 101; RESP 18; O2SAT 97
[2023-09-16 14:24] VITALS: BP 135/86; PULSE 89; RESP 18; TEMP 36.7; O2SAT 99
--- NOTE | 2023-09-16 14:24 | P.PCN_ITS ---
Procedure Date: 09/16/23 Time: 14:10 Anesthesiologist:: Daniel Roberson CRNA Complications:: None Pre-procedure Diagnosis:: Degenerative disc cervical spine multilevels. Cervical radiculopathy. Cervical spondylosis. Multilevel cervical facet arthropathy. Post-procedure Diagnosis:: Same Indications for Procedure:: Patient is a pleasant 52-year-old female comes our clinic today for bilateral cervical C5-6, C6-7 facet joint/medial branch block. Patient describes posterior cervical neck pain as constant, dull, aching. Patient reports difficulty with cervical flexion, extension, left and right rotation. She rates her pain 8/10. Procedure Details:: Procedure Details:: Informed consent was obtained and the risk and benefits of the procedure was explained to the patient. Patient was taken to the procedure room where noninvasive monitors were placed, including noninvasive blood pressure cuff as well as pulse oximeter. The area over the posterior cervical spine was cleansed using chlorhexidine as a cleansing solution. I anesthetized the skin and subcutaneous tissues with 1% Lidocaine. I placed 25 -gauge spinal needles into the facet joint/ medial branches of C5-6, C6-7 bilaterally. Needle placement was confirmed with fluoroscopy. After confirmation of needle placement, each site was injected with 1 mL of 1% lidocaine and 0.25 % Marcaine and 10 mg of Depo- Medrol. A total of 20 mg of depo medrol was used for bilateral medial branch blocks of C5-6, C6-7 bilaterally. Patient tolerated the procedure without difficulty. There were no complications. Plan and Disposition:: Patient was discharged without incident.
== END 2023-09-16 14:23 | disposition home or self-care (01) ==
PROVIDERS: PCP Internal Medicine Adolescent Medicine; Visit Provider Nurse Anesthetist, Certified Registered
DX: M47.892 Other spondylosis, cervical region (principal); M50.123 Cervical disc disorder at C6-C7 level with radiculopathy
CPT/HCPCS: 64490; 64491; J1010; Q9966

== ENCOUNTER 2024-02-12 14:31 | Outpatient (CLI) | payer BC, SELFPAY ==
--- NOTE | 2024-02-12 14:33 | MM_ITS ---
PROCEDURE INFORMATION: Exam: MG Bilateral Screening 3D Mammography Exam date and time: 02/12/2024 2:26 PM Age: 53 years old Clinical indication: Screening examination TECHNIQUE: Imaging protocol: Bilateral Screening tomosynthesis and 2D mammography including computer-aided detection (CAD) when performed. COMPARISON: 1. MG MM DIG MAMM DX UNILAT LT CAD 07/11/2022 1:04 PM 2. MG MM DIG MAMM BI DX W/CAD 12/18/2021 1:33 PM FINDINGS: MAMMOGRAPHY: Breast composition: The breasts are heterogeneously dense, which may obscure small masses. Mass: None. Architectural distortion: None. Calcifications: No suspicious calcifications. Asymmetric density: None. Skin thickening: None. Axillary adenopathy: None. IMPRESSION: No mammographic evidence of malignancy. Annual screening is recommended unless otherwise clinically indicated. ASSESSMENT: BI-RADS Category 1: Negative.
== END 2024-02-12 23:59 | disposition home or self-care (01) ==
LOC: RAD 14:31
PROVIDERS: PCP Internal Medicine Adolescent Medicine; Visit Provider Internal Medicine Adolescent Medicine
DX: Z12.31 Encounter for screening mammogram for malignant neoplasm of breast (principal)
CPT/HCPCS: 77063; 77067

== ENCOUNTER 2024-03-21 10:37 | Emergency (ER) | payer BC, SELFPAY ==
[2024-03-21 10:50] VITALS: BP 124/80; PULSE 116; RESP 18; TEMP 36.7; O2SAT 98; BMI 24.5
[2024-03-21 10:59] LABS: UTC Strep Screen (Rapid) Negative (Negative)
--- NOTE | 2024-03-21 11:02 | ED_ITS ---
Discharge Plan Disposition Patient Disposition: Home, Self-Care Condition: Good Prescriptions Prescriptions: New amoxicillin 875 mg tablet 875 mg PO Q12H Qty: 20 0RF benzonatate 100 mg capsule 100 mg PO TIDP PRN (Reason: Cough) Qty: 30 0RF methylprednisolone 4 mg Tablets,Dose Pack 4 mg PO DIRECTED 6 Days Qty: 21 0RF Rx Instructions: Take 1 pack as directed for 6 days fluconazole 150 mg tablet 150 mg PO ONCE Qty: 1 3RF No Action temazepam 15 mg capsule 15 mg PO HS amitriptyline 100 mg tablet 100 mg PO HS levothyroxine 88 mcg tablet 88 mcg PO DAILY Patient Comments: TAKE ONE TABLET BY MOUTH EVERY DAY famotidine 40 mg tablet 40 mg PO DAILY Patient Comments: TAKE ONE TABLET BY MOUTH EVERY NIGHT AT BEDTIME tizanidine 2 mg tablet 4 mg PO DIRECTED Patient Comments: TAKE TWO TABLETS BY MOUTH EVERY DAY AT BEDTIME MAY CAUSE DROWSINESS omeprazole 40 mg capsule,delayed release(DR/EC) 40 mg PO DAILY Referrals Follow up/Referrals: Mariano Pedraza MD [Primary Care Provider] - See instructions Activity Restrictions/Add. Instructions Additional Instructions/Restrictions: Drink plenty of fluids. Take tylenol or ibuprofen for pain or fever. Take the medications as directed. Follow up with your regular doctor. GO TO THE ER FOR ANY WORSENING SYMPTOMS Clinical Impressions Clinical Impression: Otitis media, Pharyngitis Instructions Patient Instructions: Middle Ear Infection Print Language Print Language: Emirati Discharge ED Provider: Pedro Sanon [facility] General Stated complaint: sore throat, headache, body aches Mode of Arrival: Ambulatory Source of Information: Patient Time Seen by Provider: 03/21/24 11:02 Description of Symptoms (Recalled from Triage Doc. by RN): SORE THROAT, FLYNN, ACHING, EAR ACHE AND COUGH HEENT Symptoms (Recalled from RN notes): Yes Resp Symptoms (Recalled from RN notes): Yes Skin Symptoms (Recalled from RN notes): No MS Symptoms (Recalled from RN notes): No Functional Status (Recalled from RN notes): WNL Related Data Home Medications ?Medication ?Instructions ?Recorded ?Confirmed amitriptyline 100 mg tablet 100 mg PO HS fibromyalgia 06/14/20 03/21/24 temazepam 15 mg capsule 15 mg PO HS sleep 06/14/20 03/21/24 levothyroxine 88 mcg tablet 88 mcg PO DAILY thyroid 04/03/22 03/21/24 omeprazole 40 mg capsule,delayed 40 mg PO DAILY Reflux/Acid reflux 10/03/22 03/21/24 release famotidine 40 mg tablet 40 mg PO DAILY GERD 10/10/22 03/21/24 tizanidine 2 mg tablet 4 mg PO DIRECTED Pain 10/10/22 03/21/24 Previous Rx's ?Medication ?Instructions ?Recorded amoxicillin 875 mg tablet 875 mg PO Q12H #20 tabs 03/21/24 benzonatate 100 mg capsule 100 mg PO TIDP PRN Cough #30 caps 03/21/24 fluconazole 150 mg tablet 150 mg PO ONCE 1 dose #1 tab 03/21/24 methylprednisolone 4 mg tablets in 4 mg PO DIRECTED 6 days #21 tabs 03/21/24 a dose pack Allergies Allergy/AdvReac Type Severity Reaction Status Date / Time acetaminophen [From Midrin] AdvReac Hallucinati Verified 09/16/23 14:05 ng dichloralphenazone AdvReac Hallucinati Verified 09/16/23 14:05 [From Midrin] ng isometheptene [From Midrin] AdvReac Hallucinati Verified 09/16/23 14:05 ng Worker's Comp Is this a Worker's Comp case?: No [facility] Disclaimer: The information contained in this section may have been updated after the patient was seen, as this information can be updated by other users. Medical History Chronic cough Constipation in female Deviated septum GERD (gastroesophageal reflux disease) Hoarseness or changing voice Nasal drainage Pituitary mass Thyroid disease Surgical History History of delivery Hx of arthroscopic knee surgery right Family History Other Family history of hypothyroidism Social History Smoking Status: Never smoker second hand exposure: No alcohol intake: current alcohol intake frequency: holidays/special occasions only substance use type: denies use current occupational status: other Travel in the last 8 weeks: None household members: spouse and family housing: house current occupation: [employer] current occupational exposures/hazards: No caffeine: Yes ROS Obtained: Yes All systems reviewed & no additional complaints except as documented Constitutional Constitutional: Reports chills and Reports fever(s) Eyes Eyes: Denies eye discharge ENT Ears, Nose, Mouth, and Throat: Reports as per HPI Cardiovascular Cardiovascular: Denies chest pain Respiratory Respiratory: Denies chest congestion and Reports cough Gastrointestinal Gastrointestingal: Reports nausea; Denies abdominal pain, constipation, c ramping, diarrhea or vomiting Musculoskeletal Musculoskeletal: Denies arthralgias Integumentary/Breasts Skin/Breast: Denies rash Neurologic Neurologic: Denies paresthesias Physical Exam General General appearance: alert and in no apparent distress Head Head exam: atraumatic, normocephalic and normal inspection Eye Eye exam: Present normal appearance, PERRL and EOMI ENT ENT exam: Present mucous membranes moist and normal external ear exam Expanded ENT Exam TM/Canal exam: Bilateral TM: erythema and bulging Nose exam: Absent sinus tenderness Mouth exam: Present normal external inspection; Absent drooling Teeth exam: Present normal inspection Throat exam: Present tonsillar erythema, tonsillomegaly and tonsillar exudate Neck Neck exam: Present normal inspection, full ROM and trachea midline; Absent tenderness, meningismus or lymphadenopathy Chest Chest inspection: Present normal inspection and symmetric chest wall rise; Absent tenderness Respiratory Respiratory exam: Present normal lung sounds bilaterally; Absent respiratory distress, wheezes, stridor or accessory muscle use Cardiovascular Cardiovascular exam: Present regular rate and normal rhythm; Absent systolic murmur or diastolic murmur Abdominal Exam Abdominal exam: Present soft and normal bowel sounds; Absent distention, tenderness, guarding, rebound or rigidity Extremities Exam Extremities exam: Present normal inspection and normal capillary refill; Absent calf tenderness Back Exam Back exam: Present normal inspection and full ROM; Absent tenderness, CVA tenderness (R) or CVA tenderness (L) Neurological Exam Neurological exam: Present alert, oriented X3 and CN II-XII intact Psychiatric Psychiatric exam: Present normal affect and normal mood Skin Skin exam: Present warm, dry, intact and normal color Medical Decision Making Medical Records Medical records reviewed: No I reviewed the patient's medical records. Screening: Per USPSTF and CDC recommendations, given the prevalence of disease in our region, it is our hospital?s policy to screen for HIV and viral Hepatitis for all patients aged 18 and over and those with ongoing risk factors. [place] Inquiry Pt receiving controlled substance: No Vital Signs: 03/21/24 10:50 Temperature 98.1 F Temperature Source Oral Pulse Rate [Left Radial] 116 H Respiratory Rate 18 Blood Pressure [Left Arm] 124/80 Blood Pressure Mean [Left Arm] 94 02 Sat by Pulse Oximetry 98 Lab Data Lab results reviewed: Yes I reviewed the patient's lab results. Lab Results 03/21/24 10:49: Strep Scn Rapid Clinic Negative Orders (Tests/Meds): ORDERS Category Date Time Status Strep Screen Confirmation Stat Micro 03/21/24 10:49 Received
[2024-03-21 11:12] VITALS: BP 124/80; PULSE 116; RESP 18; TEMP 36.7
== END 2024-03-21 11:15 | disposition home or self-care (01) ==
PROVIDERS: Emergency Provider Nurse Practitioner Family; PCP Internal Medicine Adolescent Medicine
DX: J02.9 Acute pharyngitis, unspecified (principal); H66.90 Otitis media, unspecified, unspecified ear; R51.9 Headache, unspecified; R05.9 Cough, unspecified; R50.9 Fever, unspecified; R11.0 Nausea
CPT/HCPCS: 87880; 99212; G0381

== ENCOUNTER 2024-04-23 10:51 | Outpatient (CLI) | payer BC, SELFPAY ==
--- NOTE | 2024-04-23 10:57 | US_ITS ---
FINAL REPORT CLINICAL HISTORY: ELEVATED CREATINE COMPARISON: None FINDINGS: RENAL ULTRASOUND Ultrasound images of the kidneys were obtained. The right kidney measures 8.7 cm in length. It is normal echogenicity. There is no hydronephrosis. The left kidney measures 9.4 cm in length. It is normal echogenicity. There is no hydronephrosis. IMPRESSION: Normal renal ultrasound. Reviewed, Interpreted and Dictated by Alex Maldonado III, MD Transcribed by Digna Gomes Authenticated and [facility]
== END 2024-04-23 23:59 | disposition home or self-care (01) ==
LOC: RAD 10:52
PROVIDERS: PCP Internal Medicine Adolescent Medicine; Visit Provider Internal Medicine Adolescent Medicine
DX: R74.8 Abnormal levels of other serum enzymes (principal)
CPT/HCPCS: 76770

== ENCOUNTER 2025-02-16 13:14 | Outpatient (CLI) | payer OTHER, SELFPAY ==
--- OUTSIDE RECORDS SUMMARY | 2025-02-16 13:17 | XMS_ITS | Clinical Summary ---
Author Organization [facility] Address [address], [address] [place] [address] Care Team Providers Care Avionics Manager Name Role Phone Mariano Pedraza MD Primary Care Provider [phone] Social History Tobacco Use Types Packs/Day Years Used Date Smoking Tobacco: Never Assessed Comments Unknown Sex and Gender Information Value Date Recorded Sex Assigned at Not on file Legal Sex Female 3:08 AM EST Gender Identity Not on file Sexual Orientation Not on file Plan of Treatment Not on file Insurance [facility] Care Teams Avionics Manager Relationship Specialty Start Date End Date Mariano Pedraza MD [address] [facility] [address] [place] [id number] PCP - General Internal Medicine 10/22/18
--- NOTE | 2025-02-16 13:19 | MM_ITS ---
PROCEDURE INFORMATION: Exam: MG Bilateral Screening 3D Mammography Exam date and time: 02/16/2025 1:21 PM Age: 54 years old Clinical indication: Screening. No family history of breast cancer. TECHNIQUE: Imaging protocol: Bilateral Screening tomosynthesis and 2D mammography including computer-aided detection (CAD) when performed. COMPARISON: 1. MG MM DIG SCREENING MAMM BI W/CAD 02/12/2024 2:26 PM 2. MG MM DIG MAMM DX UNILAT LT CAD 07/11/2022 1:04 PM 3. MG MM DIG MAMM BI DX W/CAD 12/18/2021 1:33 PM 4. MG MM DIG MAMM DX UNILAT LT CAD 06/18/2021 2:00 PM FINDINGS: MAMMOGRAPHY: Breast composition: The breasts are heterogeneously dense, which may obscure small masses. Mass: None. Architectural distortion: None. Calcifications: No suspicious calcifications. Asymmetric density: None. Skin thickening: None. Axillary adenopathy: None. IMPRESSION: No mammographic evidence of malignancy. Annual screening is recommended unless otherwise clinically indicated. ASSESSMENT: BI-RADS Category 1: Negative.
== END 2025-02-16 23:59 | disposition home or self-care (01) ==
LOC: RAD 13:16
PROVIDERS: PCP Internal Medicine Adolescent Medicine; Visit Provider Nurse Practitioner Family
DX: Z12.31 Encounter for screening mammogram for malignant neoplasm of breast (principal); R92.333 Mammographic heterogeneous density, bilateral breasts
CPT/HCPCS: 77063; 77067

== ENCOUNTER 2025-02-24 07:19 | Outpatient (CLI) | payer OTHER, SELFPAY ==
[2025-02-24 07:25] LABS: Microscopic, Urine URINE MICROSCOPIC (MICROSCOPIC)
[2025-02-24 07:48] LABS: Hematocrit 44.3 % (37.0-47.0); Hemoglobin 14.2 g/dL (12.2-16.2); Immature Granulocytes % 0.3 %; Mean Corpuscular HGB Conc 32.1 g/dL (31.8-35.4); Mean Corpuscular Hemoglobin 29.3 pg (27.0-31.2); Mean Corpuscular Volume 91.3 fl (81-99); Nucleated Red Blood Cells % 0 %; Platelet Count 198 K/mm3 (142-424); Red Blood Count 4.85 M/mm3 (4.20-5.40); Red Cell Distribution Width-SD 43.8 fL; White Blood Count 9.5 K/mm3 (4.8-10.8)
[2025-02-24 08:17] LABS: Glucose,Urine (UA) Negative (Negative); Ketones,Urine 1+ (Negative); Leukocyte Esterase,Urine TRACE (Negative); PH,Urine 7.5 (5.0-8.5); Protein,Urine 1+ (Negative); Specific Gravity, Urine 1.015 (1.005-1.030); Urobilinogen,Urine 0.2 EU/dl (0.2)
[2025-02-24 08:38] LABS: Alanine Aminotransferase 129 U/L (12-78); Albumin Level 4.4 g/dl (3.5-5.0); Albumin/Globulin Ratio 2.0 (1.1-1.8); Alkaline Phosphatase 82 U/L (38-126); Anion Gap 16.8 mEq/L (5-15); Aspartate Amino Transferase 64 U/L (14-36); Bilirubin,Total 0.9 mg/dl (0.2-1.3); Blood Urea Nitrogen 10 mg/dl (7-17); Calcium 9.9 mg/dl (8.4-10.2); Carbon Dioxide 29 mmol/L (22.0-30.0); Chloride 99 mmol/L (98-107); Cholesterol 198 mg/dl (140-200); Creatinine,Serum 0.90 mg/dl (0.52-1.04); Estimated Glomerular Filt Rate 65 ml/min (>60); GFR (African American) 78 ML/MIN (>60); Globulin 2.2 g/dL (1.3-3.2); Glucose 131 mg/dl (74-100); HDL Cholesterol 94 mg/dl (40-60); Potassium 3.8 mmoL/L (3.5-5.1); Sodium 141 mmol/L (136-145); Total Protein,Serum 6.6 g/dl (6.3-8.2); Triglycerides 107 mg/dl (30-150)
[2025-02-24 08:40] LABS: Color,Urine Dark Yellow (Yellow)
[2025-02-24 08:45] LABS: Bilirubin,Urine Negative (Negative)
[2025-02-24 08:56] LABS: Free Thyroxine Index 2.5 ug/dL (5.93-13.13); T4 (Thyroxine) 7.5 ug/dl (5.53-11.0); Triiodothryronine (T3) Uptake 33 % (23.5-40.5)
[2025-02-24 09:10] LABS: Thyroid Stimulating Hormone 0.82 uIU/mL (0.465-4.68)
[2025-02-24 09:33] LABS: WBC,Urine Occasional #/hpf (0-3)
[2025-02-24 09:34] LABS: Bacteria,Urine 1+ /lpf; Squamous Epithelial Cell,Urine Occasional #/hpf (0-5)
[2025-03-07 10:10] LABS: Amphetamines IA Negative ng/mL (Cutoff:50); Barbituates IA Negative ug/mL (Cutoff:0.1); Benzodiazepines IA ++POSITIVE++ ng/mL (Cutoff:20); Cocaine & Metabolites IA Negative ng/mL (Cutoff:25); Fentanyl, IA Negative ng/mL (Cutoff:1.0); Meperidine, IA Negative ng/mL (Cutoff:100); Methadone IA Negative ng/mL (Cutoff:25); Opiates IA Negative ng/mL (Cutoff:5); Oxycodone IA ++POSITIVE++ ng/mL (Cutoff:5); Phencyclidine IA Negative ng/mL (Cutoff:8); Propoxyphene IA Negative ng/mL (Cutoff:50); THC (marijauna) metabolite IA Negative ng/mL (Cutoff:5); Tramadol, IA Negative ng/mL (Cutoff:50)
== END 2025-02-24 23:59 | disposition home or self-care (01) ==
LOC: LAB 07:20
PROVIDERS: PCP Internal Medicine Adolescent Medicine; Visit Provider Internal Medicine Adolescent Medicine
DX: M54.12 Radiculopathy, cervical region (principal); E03.9 Hypothyroidism, unspecified; E78.2 Mixed hyperlipidemia; R79.89 Other specified abnormal findings of blood chemistry
CPT/HCPCS: 36415; 80053; 80061; 80307; 81001; 84436; 84443; 84479; 85025

== ENCOUNTER 2025-03-26 09:36 | Inpatient (IN) | payer OTHER, SELFPAY ==
[2025-03-26] VITALS (17 sets, daily range): BP systolic 104–132; BP diastolic 57–85; PULSE 90–118; RESP 14–31; TEMP 36.6–39.7; O2SAT 85–98; BMI 33.3
--- NOTE | 2025-03-26 09:34 | CT_ITS ---
PROCEDURE INFORMATION: Exam: CTA Head With Contrast, Arteriography Exam date and time: 03/26/2025 9:42 AM Age: 54 years old Clinical indication: Stroke-like symptoms; Speech disturbance; Additional info: Slurred speech encephalopathy spontaneously moving TECHNIQUE: Imaging protocol: Computed tomographic angiography of the head with contrast. Exam focused on the arteries. 3D rendering (Not supervised by radiologist): MIP and/or 3D reconstructed images were created by the technologist. Radiation optimization: All CT scans at this facility use at least one of these dose optimization techniques: automated exposure control; mA and/or kV adjustment per patient size (includes targeted exams where dose is matched to clinical indication); or iterative reconstruction. Contrast material: ISOVUE 370; Contrast volume: 80 ml; Contrast route: INTRAVENOUS (IV); COMPARISON: CT HEAD/BRAIN WO CON 03/26/2025 9:39 AM FINDINGS: ANTERIOR CIRCULATION: Right internal carotid artery: Intracranial segment is patent with no significant stenosis. No aneurysm. Right middle cerebral artery: No occlusion or significant stenosis. No aneurysm. Right anterior cerebral artery: No occlusion or significant stenosis. No aneurysm. Left internal carotid artery: Intracranial segment is patent with no significant stenosis. No aneurysm. Left middle cerebral artery: No occlusion or significant stenosis. No aneurysm. Left anterior cerebral artery: No occlusion or significant stenosis. No aneurysm. POSTERIOR CIRCULATION: Right vertebral artery: No occlusion or significant stenosis. No aneurysm. Left vertebral artery: No occlusion or significant stenosis. No aneurysm. Basilar artery: No occlusion or significant stenosis. No aneurysm. Right posterior cerebral artery: No occlusion or significant stenosis. No aneurysm. Left posterior cerebral artery: No occlusion or significant stenosis. No aneurysm. Brain: No definite mass, mass effect, or midline shift. Cerebral ventricles: No ventriculomegaly. Bones/joints: Unremarkable. No acute fracture. Soft tissues: Unremarkable. IMPRESSION: Normal CTA of the brain.
--- NOTE | 2025-03-26 09:34 | CT_ITS ---
PROCEDURE INFORMATION: Exam: CT Head Without Contrast Exam date and time: 03/26/2025 9:39 AM Age: 54 years old Clinical indication: Stroke-like symptoms; Speech disturbance; Additional info: Slurred speech encephalopathy spontaneously moving TECHNIQUE: Imaging protocol: Computed tomography of the head without contrast. Radiation optimization: All CT scans at this facility use at least one of these dose optimization techniques: automated exposure control; mA and/or kV adjustment per patient size (includes targeted exams where dose is matched to clinical indication); or iterative reconstruction. Other technique: STROKE PROTOCOL was implemented. COMPARISON: MR HEAD/BRAIN WO/W CON 04/18/2022 10:07 AM FINDINGS: Brain: Normal. No hemorrhage. Unremarkable white matter. No mass effect. Cerebral ventricles: No ventriculomegaly. Paranasal sinuses: Mucoperiosteal thickening throughout the paranasal sinuses. Calcified osteoma left ethmoid air cells. Mastoid air cells: Visualized mastoid air cells are well aerated. Bones: Unremarkable. No acute fracture. Soft tissues: Unremarkable. IMPRESSION: No acute intracranial process evident. ASSESSMENT: ASPECTS ([place] Stroke Program Early CT Score) is 10.
--- NOTE | 2025-03-26 09:34 | CT_ITS ---
PROCEDURE INFORMATION: Exam: CTA Neck With Contrast Exam date and time: 03/26/2025 9:42 AM Age: 54 years old Clinical indication: Stroke-like symptoms; Speech disturbance; Additional info: Slurred speech encephalopathy spontaneously moving TECHNIQUE: Imaging protocol: Computed tomographic angiography of the neck with contrast. Exam focused on the cervical segments of the vasculature. 3D rendering (Not supervised by radiologist): MIP and/or 3D reconstructed images were created by the technologist. Radiation optimization: All CT scans at this facility use at least one of these dose optimization techniques: automated exposure control; mA and/or kV adjustment per patient size (includes targeted exams where dose is matched to clinical indication); or iterative reconstruction. Contrast material: ISOVUE 370; Contrast volume: 80 ml; Contrast route: INTRAVENOUS (IV); COMPARISON: MR CERVICAL SPINE WO CON 08/26/2023 2:11 PM FINDINGS: Right common carotid artery: No stenosis. No dissection or occlusion. Right internal carotid artery: No stenosis of the extracranial segment. No dissection or occlusion. Right external carotid artery: No occlusion or stenosis of the origin. Left common carotid artery: No stenosis. No dissection or occlusion. Left internal carotid artery: No stenosis of the extracranial segment. No dissection or occlusion. Left external carotid artery: No occlusion or stenosis of the origin. Right vertebral artery: No stenosis. No dissection or occlusion. Left vertebral artery: Dominant left vertebral artery, widely patent. Soft tissues: Normal. No significant soft tissue swelling. Bones/joints: No acute fracture. Lungs: Patchy ground-glass opacities and consolidation within both upper lungs, incompletely included on the study. IMPRESSION: 1. Normal CTA of the neck. 2. Patchy ground-glass opacities and consolidation within both upper lungs, incompletely included on the study. Findings may reflect edema, pneumonia or aspiration. Recommend following until clear. REFERENCES: NASCET CRITERIA. The degree of stenosis in the cervical segment of the internal carotid artery is based on NASCET criteria. Normal is no stenosis. Mild is less than 50% stenosis. Moderate is 50-69% stenosis. Severe is 70% to 99% stenosis. Total occlusion is no detectable patent lumen.
--- NOTE | 2025-03-26 09:36 | HMH.EDGENADL ---
Discharge Plan Disposition Chief Complaint: Neuro Symptoms/Deficit Prescriptions Prescriptions: No Action temazepam 15 mg capsule 15 mg PO HS amitriptyline 100 mg tablet 100 mg PO HS levothyroxine 88 mcg tablet 88 mcg PO DAILY Patient Comments: TAKE ONE TABLET BY MOUTH EVERY DAY famotidine 40 mg tablet 40 mg PO DAILY Patient Comments: TAKE ONE TABLET BY MOUTH EVERY NIGHT AT BEDTIME tizanidine 2 mg tablet 4 mg PO DIRECTED Patient Comments: TAKE TWO TABLETS BY MOUTH EVERY DAY AT BEDTIME MAY CAUSE DROWSINESS gabapentin 100 mg capsule 100 mg PO DAILY Patient Comments: TAKE 1 TO 2 CAPSULE(S) BY MOUTH EVERY EVENING MAY CAUSE DROWSINESS oxycodone 10 mg tablet 10 mg PO TID Patient Comments: TAKE ONE TABLET BY MOUTH THREE TIMES DAILY MAY CAUSE DROWSINESS estradiol [Estrace] 0.01 % (0.1 mg/gram) cream 1 g vaginal DAILY Qty: 42.5 4RF Rx Instructions: Use blueberry size amount every night for 2 weeks. Then, use blueberry size amount twice weekly. Throw away applicator after single use. omeprazole 40 mg capsule,delayed release(DR/EC) 40 mg PO DAILY Referrals Follow up/Referrals: Mariano Pedraza MD [Primary Care Provider, Internal Medicine] - See instructions Print Language Print Language: Ukrainian Discharge ED Provider: Zackery Monge General Adult HPI General Chief complaint: Neuro Symptoms/Deficit Stated complaint: Stroke Alert Time Seen by Provider: 03/26/25 09:40 History of Present Illness HPI narrative: Patient is a 54-year-old female with past medical history of chronic pain syndrome on multiple pain medications, hypothyroidism who presents Emergency Department for evaluation of strokelike symptoms. Patient was normal last night when she went to bed, unknown exactly the time but sometime in the evening. She was complaining of sore throat. Patient is on oxycodone, temazepam, tizanidine at baseline and gabapentin was recently started for her chronic pain syndrome. This morning patient was encephalopathic not really responding to external stimuli however was moving all extremities. Now with was contacted, fingerstick blood glucose nonactionable in the field IV access was obtained. At the scene family states that they have taken 2 Tylenol cold and flu as well. No obvious trauma. No other history is able to be obtained at this time. Patient was given Narcan prehospital and had improvement of state of arousal. Please note that above description of symptoms, in this electronic medical record under categorization of recalled from ER triage doctor by RN are reflective of an initial nursing assessment, however, is not reflective of my full history and physical exam that was personally taken and clarified. Consequentially, this preceding description of symptoms, which may include the patient's categorized chief complaint in the EMR, do not reflect my personal clinical impression, and the ultimate description of history of present illness and patient stated complaints should be deferred to this section of the note. Unless stated otherwise or congruent with this section of the note, additional signs, symptoms, or incongruence should be interpreted as inaccurate with my clinical impression. Related Data Home Medications ?Medication ?Instructions ?Recorded ?Confirmed amitriptyline 100 mg tablet 100 mg PO HS fibromyalgia 06/14/20 03/17/25 temazepam 15 mg capsule 15 mg PO HS sleep 06/14/20 03/17/25 levothyroxine 88 mcg tablet 88 mcg PO DAILY thyroid 04/03/22 03/17/25 omeprazole 40 mg capsule,delayed 40 mg PO DAILY Reflux/Acid reflux 10/03/22 03/17/25 release famotidine 40 mg tablet 40 mg PO DAILY GERD 10/10/22 03/17/25 tizanidine 2 mg tablet 4 mg PO DIRECTED Pain 10/10/22 03/17/25 gabapentin 100 mg capsule 100 mg PO DAILY 03/17/25 03/17/25 oxycodone 10 mg tablet 10 mg PO TID 03/17/25 03/17/25 Previous Rx's ?Medication ?Instructions ?Recorded estradiol 0.01% (0.1 mg/gram) 1 g vaginal DAILY #42.5 grams 03/17/25 vaginal cream (Estrace) Allergies Allergy/AdvReac Type Severity Reaction Status Date / Time acetaminophen (From Midrin) AdvReac Hallucinati Verified 03/17/25 13:59 ng dichloralphenazone (From AdvReac Hallucinati Verified 03/17/25 13:59 Midrin) ng isometheptene (From Midrin) AdvReac Hallucinati Verified 03/17/25 13:59 ng [facility] Disclaimer: The information contained in this section may have been updated after the patient was seen, as this information can be updated by other users. Medical History Constipation in female GERD (gastroesophageal reflux disease) Pituitary mass Chronic cough Deviated septum Hoarseness or changing voice Nasal drainage Thyroid disease Surgical History (Updated 03/17/25 @ 14:21 by JO ANN Mccray) History of ankle surgery Hx of arthroscopic knee surgery History of delivery Family History Other Family history of hypothyroidism Social History Smoking Status: Current every day smoker second hand exposure: No alcohol intake: current alcohol intake frequency: holidays/special occasions only substance use type: denies use current occupational status: other Travel in the last 8 weeks?: None household members: spouse and family housing: house current occupation: j[employer] current occupational exposures/hazards: No caffeine: Yes Have you lived/traveled outside US in past 30 days?: No Contact w/someone who lives/traveled outside US past 30 days?: No Exposure to someone with infectious disease in past 14 days?: No Do you have a fever (greater than 100.4 F or 38 C)?: No Have you tested positive for COVID-19?: No Exposed to someone with COVID-19 in past 14 days?: No Do you have a sore throat?: No Do you have a cough?: No Do you have any weakness?: No Do you have any diarrhea?: No Are you experiencing any unusual bleeding?: No Do you have any muscle aches/pain?: No Do you have any abdominal pain?: No Are you experiencing loss of taste or smell?: No Other Medical History Have you received the Flu Vaccine for this season: No Have you received the Pneumonia Vaccine: No ROS Obtained: Yes Systems reviewed as appropriate & no additional complaints except as documented Physical Exam General General appearance: other Comment: Encephalopathic Head Head exam: atraumatic and normocephalic Eye Eye exam: Present PERRL ENT ENT exam: Present mucous membranes moist Neck Neck exam: Present normal inspection Chest Chest inspection: Present normal inspection and symmetric chest wall rise Respiratory Respiratory exam: Present normal lung sounds bilaterally; Absent respiratory distress Cardiovascular Cardiovascular exam: Present regular rate and normal rhythm Abdominal Exam Abdominal exam: Present soft; Absent tenderness Extremities Exam Extremities exam: Present normal inspection Neurological Exam Neurological exam: Present other (Spontaneously moving all extremities, no obvious facial droop) Psychiatric Psychiatric exam: Present normal affect Skin Skin exam: Present warm and dry Medical Decision Making Medical Records Screening: Per USPSTF and CDC recommendations, given the prevalence of disease in our region, it is our hospital?s policy to screen for HIV and viral Hepatitis for all patients aged 18 and over and those with ongoing risk factors. [place] Inquiry Pt receiving controlled substance: No Vital Signs: 03/26/25 09:33 03/26/25 09:34 03/26/25 10:29 Temperature 103.4 F H Temperature Source Oral Pulse Rate 118 H Pulse Rate [Left Radial] 117 H Respiratory Rate 19 30 H Blood Pressure 130/74 Blood Pressure [Right Arm] 132/85 Blood Pressure Mean [Right Arm] 100 02 Sat by Pulse Oximetry 92 L 98 97 Oxygen Delivery Method Room Air Nasal Cannula Nasal Cannula Oxygen Flow Rate (LPM) 2 2 03/26/25 10:30 03/26/25 11:24 03/26/25 11:30 Temperature Temperature Source Pulse Rate 118 H 106 H 106 H Pulse Rate [Left Radial] Respiratory Rate 31 H 16 19 Blood Pressure 111/70 111/68 Blood Pressure [Right Arm] Blood Pressure Mean [Right Arm] 02 Sat by Pulse Oximetry 95 95 94 L Oxygen Delivery Method Nasal Cannula Nasal Cannula Room Air Oxygen Flow Rate (LPM) 2 2 03/26/25 11:37 03/26/25 12:00 03/26/25 12:30 Temperature 99.9 F H Temperature Source Oral Pulse Rate 103 H 101 H Pulse Rate [Left Radial] Respiratory Rate 14 16 Blood Pressure 127/79 119/77 Blood Pressure [Right Arm] Blood Pressure Mean [Right Arm] 02 Sat by Pulse Oximetry 97 96 Oxygen Delivery Method Room Air Room Air Oxygen Flow Rate (LPM) 03/26/25 13:00 03/26/25 13:30 Temperature Temperature Source Pulse Rate 99 H 99 H Pulse Rate [Left Radial] Respiratory Rate 19 22 Blood Pressure 117/77 112/76 Blood Pressure [Right Arm] Blood Pressure Mean [Right Arm] 02 Sat by Pulse Oximetry 95 95 Oxygen Delivery Method Room Air Room Air Oxygen Flow Rate (LPM) Lab Data Lab Results 03/26/25 09:30: WBC 7.3, RBC 4.78, Hgb 14.1, Hct 42.7, MCV 89.3, MCH 29.5, MCHC 33.0, RDW 12.8, Plt Count 138 L, MPV 9.8, Neut % (Auto) 90.4 H, Lymph % (Auto) 4.8 L, [place] % (Auto) 4.4, Eos % (Auto) 0.0 L, Baso % (Auto) 0.1, Neut # (Auto) 6.6, Lymph # (Auto) 0.4 L, [place] # (Auto) 0.3, Eos # (Auto) 0.0, Baso # (Auto) 0.0, Total Counted 100, Neutrophils % (Manual) 88 H, Lymphocytes % (Manual) 6 L, Monocytes % (Manual) 5, Basophils % (Manual) 1.0, Platelet Estimate Normal, RBC Morphology Normal, PT 11.4, INR 1.03, APTT 25.2, Sodium 139, Potassium 3.8, Chloride 100, Carbon Dioxide 32 H, Anion Gap 10.8, BUN 7, Creatinine 0.70, Estimated GFR 87, Est GFR ( Amer) 105, Glucose 120 H, Calcium 9.1, Total Bilirubin 0.8, AST 30, ALT 19, Alkaline Phosphatase 58, Troponin I 0.14 H, Total Protein 6.7, Albumin 4.8, Globulin 1.9, Albumin/Globulin Ratio 2.5 H, Triglycerides 40, Cholesterol 160, LDL Cholesterol Direct 84.04 L, VLDL Cholesterol 8, HDL Cholesterol 71 H, Cholesterol/HDL Ratio 2.3, TSH 1.03, Free T4 1.07, Plasma/Serum Alcohol < 10 03/26/25 10:03: Chlamy pneumoniae PCR Not detected, Adenovirus (PCR) Not detected, B. pertussis DNA (PCR) Not detected, Coronavirus OC43 (PCR) Not detected, Coronavirus HKU1 (PCR) Not detected, Coronavirus 229E (PCR) Not detected, SARS-CoV-2 (PCR) Not detected, Coronavirus NL63 (PCR) Not detected, Human Metapneumovir PCR Not detected, Influenza A (H1) PCR Not detected, Influ A (H1N1/09) PCR Not detected, Influenza A (H3) PCR Not detected, Influenza Type A (PCR) Not detected, Influenza Type B (PCR) Not detected, M. pneumoniae (PCR) Not detected, Parainfluenza 1 (PCR) Not detected, Parainfluenza 2 (PCR) Not detected, Parainfluenza 3 (PCR) Not detected, Parainfluenza 4 (PCR) Not detected, RSV (PCR) Not detected, Entero/Rhino (PCR) Not detected 03/26/25 10:04: SARS-CoV-2 (PCR) Not detected, HCV Ab CLEMENTE w/Rflx PCR Qn Negative, HIV Ag/Ab Combo Qual Negative, Influenza A Untype (PCR) Not detected, Influenza Type B (PCR) Not detected 03/26/25 10:29: Group A Strep Rapid Negative 03/26/25 11:18: Troponin I 0.15 H 03/26/25 11:20: Ammonia < 9 L 03/26/25 11:22: Urine Color Yellow, Urine Appearance Clear, Urine pH 6.0, Ur Specific [place] 1.010, Urine Protein Negative, Urine Glucose (UA) Trace, Urine Ketones Negative, Urine Blood Trace-i, Urine Nitrate Negative, Urine Bilirubin Negative, Urine Urobilinogen 0.2, Ur Leukocyte Esterase Negative, Urine RBC Occasional, Urine WBC None, Ur Squamous Epith Cells 3-5, Urine Bacteria None, Urine Opiates Screen Positive H, Urine Methadone Screen Negative, Ur Barbituates Screen Negative, Ur Phencyclidine Scrn Negative, Ur Amphetamines Screen Negative, U Benzodiazepines Scrn Negative, Urine Cocaine Screen Negative, U Marijuana (THC) Screen Negative 03/26/25 11:25: VBG pH 7.42 H, VBG pCO2 43.4, VBG pO2 68.9 H, VBG HCO3 27.3, VBG Total CO2 28.7 H, VBG O2 Saturation 94.9 H, VBG Base Excess 2.8 H, VBG Lactic Acid 1.7 03/26/25 09:30 03/26/25 09:30 Orders (Tests/Meds): ED MEDICATIONS Generic Name Dose Route Start Last Admin Trade Name Freq PRN Reason Stop Dose Admin Sodium Chloride 10 ml 03/26/25 09:34 Sodium Chloride 0.9% 10ml Flush Syringe IV 04/25/25 09:33 NEEDED PRN Maintain IV Site Sodium Chloride 10 ml 03/26/25 09:37 03/26/25 09:43 Sodium Chloride 0.9% 10ml Syr (Rad Only) IV 04/25/25 09:36 10 ml NEEDED PRN Administration Maintain IV Site Sodium Chloride 10 ml 03/26/25 11:00 03/26/25 11:09 Sodium Chloride 0.9% 10ml Syr (Rad Only) IV 04/25/25 10:59 10 ml NEEDED PRN Administration Maintain IV Site Discontinued Medications Generic Name Dose Route Start Last Admin Trade Name Jing PRN Reason Stop Dose Admin Acetaminophen 1,000 mg 03/26/25 10:20 03/26/25 10:32 Acetaminophen 1,000mg/100ml Vial IV 03/26/25 10:21 1,000 mg ONCE ONE Administration Ceftriaxone Sodium 1 gm/ 50 mls @ 100 mls/hr 03/26/25 09:50 03/26/25 11:02 Sodium Chloride IV 03/26/25 10:19 Infused ONCE ONE Infusion Vancomycin/PEG/NADA/Lysine/Water 1.25 gm in 250 mls @ 125 mls/hr 03/26/25 10:00 03/26/25 11:40 Vancomycin 1.25gm/250ml (Peg) Premix IV 03/26/25 11:59 125 mls/hr ONCE ONE Administration Lactated Ringer's 1,710 mls @ 855 mls/hr 03/26/25 10:36 03/26/25 11:19 Lactated Ringer's 1000 Ml Bag 30 ml/kg infuse over 2 hr (1710 ml) 03/26/25 12:35 855 mls/hr IV Administration .Q2H ONE Azithromycin 500 mg/ Sodium 250 mls @ 250 mls/hr 03/26/25 11:29 Chloride IV 03/26/25 11:30 ONCE ONE Iopamidol 80 ml 03/26/25 09:37 03/26/25 09:42 Iopamidol-370 (76%);100ml Bottle IV 03/26/25 09:38 80 ml ONCE ONE Administration Iopamidol 70 ml 03/26/25 11:00 03/26/25 11:07 Iopamidol-370 (76%);100ml Bottle IV 03/26/25 11:01 70 ml ONCE ONE Administration Methylprednisolone Sodium Succinate 125 mg 03/26/25 10:48 03/26/25 11:17 Methylprednisolone Sod Succ 125mg Vial IV 03/26/25 10:49 125 mg ONCE ONE Administration Miscellaneous 1 each 03/26/25 10:00 Vancomycin Consult Request NOTAPPLIC 04/25/25 09:59 CONSULT [facility] Ondansetron HCl 4 mg 03/26/25 09:37 03/26/25 10:17 Ondansetron 4mg/2ml Vial IV 03/26/25 09:38 4 mg ONCE ONE Administration Sodium Chloride 50 ml 03/26/25 09:37 03/26/25 09:42 0.9 % Sodium Chloride 50 Ml Vial IV 03/26/25 09:38 50 ml ONCE ONE Administration Sodium Chloride 50 ml 03/26/25 11:00 03/26/25 11:09 0.9 % Sodium Chloride 50 Ml Vial IV 03/26/25 11:01 50 ml ONCE ONE Administration ORDERS Category Date Time Status CT angio chest PE protocol Stat Cat Scan 03/26/25 10:[address] angio head Stat Cat Scan 03/26/25 09:[address] angio neck Stat Cat Scan 03/26/25 09:[address] head/brain wo con Stat Cat Scan 03/26/25 09:34 Completed CXR --portable [XR chest portable] Stat Exams 03/26/25 09:49 Completed Activated Partial Thrombo Time Stat Lab 03/26/25 09:30 Completed Ammonia Stat Lab 03/26/25 11:20 Completed Complete Blood Count Auto Diff Stat Lab 03/26/25 09:30 Completed Comprehensive Metabolic Panel Stat Lab 03/26/25 09:30 Completed Drug Screen,Urine Stat Lab 03/26/25 11:22 Completed Ethyl Alcohol Stat Lab 03/26/25 09:30 Completed Free T4 (Free Thyroxine) Stat Lab 03/26/25 09:30 Completed Full Resp Panel w/COVID ([facility]) Routine Lab 03/26/25 10:03 Completed HIV Combo Stat Lab 03/26/25 10:04 Completed Hepatitis C Ab Qual. W/ RFX Stat Lab 03/26/25 10:04 Completed Lipid Panel Stat Lab 03/26/25 09:30 Completed Prothrombin Time INR Stat Lab 03/26/25 09:30 Completed Rapid PCR Covid and Flu A/B Stat Lab 03/26/25 10:04 Completed Strep Scrn Group A (Rapid) Stat Lab 03/26/25 10:29 Completed TSH [Thyroid Stimulating Hormone] Stat Lab 03/26/25 09:30 Completed Troponin I Q3H Lab 03/26/25 11:18 Completed Troponin I Q3H Lab 03/26/25 13:45 Ordered Troponin I Q3H Lab 03/26/25 15:45 Ordered Troponin I Q3H Lab 03/26/25 16:45 Ordered Troponin I Stat Lab 03/26/25 09:30 Completed Urinalysis and Microscopic Stat Lab 03/26/25 11:22 Completed Blood Culture Stat Micro 03/26/25 09:58 Received Strep Screen Confirmation Stat Micro 03/26/25 10:29 Received VBG [Venous Blood Gas] Stat RT 03/26/25 11:25 Completed ECG Data Tracing #1: Independently interpreted by me rate is 96, rhythm is regular, axis is normal, no ST elevation in anatomical contiguous leads, QTc 417. Medical Decision Narrative: In summary patient is a 54-year-old female with past medical history of scrota but presents emergency department for evaluation of encephalopathy and possible strokelike symptoms. Patient is hemodynamically stable and encephalopathic upon arrival. IV access obtained prehospital fingerstick blood glucose nonactionable. Patient undergo rapid stroke protocol with hematologic labs noncontrasted CT scan of the head CTA of the head and neck. Differential also includes polypharmacy given that she had improvement of her condition with Narcan and recently started gabapentin. Upon return of stroke scan patient's body temperature is 103 degrees. Given this with encephalopathy will broaden for infectious workup with chest x-ray urinalysis blood cultures as well as empiric broad-spectrum coverage with [employer] penetration with vancomycin and ceftriaxone. If patient does not improve with her mental status which may be due to polypharmacy she will likely require lumbar puncture. Upon repeat evaluation patient had significant improvement of her mental status was conversational. I suspect polypharmacy was contributing to this and she had no strokelike symptoms however did have hypoxia and was on nasal cannula for which workup will be broadened. Patient states that she has had some cough. Workup will be conducted with hematologic labs and chest x-ray and viral swab initially. Workup reviewed by me hematologic labs no significant leukocytosis no transfusable anemia, compensated acid-base status no significant elevated lactate no ABBEY. Chest x-ray has patchy bilateral ground glass opacities some of which are calcified. Patient was originally covered for pneumonia with ceftriaxone azithromycin will be added on. Upon repeat evaluation patient does have chest pain that goes through to her back CTA will be ordered interestingly there is elevated troponin 0.15. CTA chest was ordered there is multiple heterogenous ground glass opacities in bilateral lungs most predominantly in the left lower concerning for infectious versus inflammatory. There is no distinct cholelithiasis note is made of moderate extrahepatic biliary ductal dilatation measuring up to [address] abdomen pelvis is recommended. I went and reevaluated the patient, patient is nontender in her right upper quadrant has no history of vomiting and is completely normal mental status. Given this with the amount of contrast she has gotten we will defer further evaluation at this time and the case discussed with hospital medicine regarding care and they will admit the patient to her service for continued evaluation. Serial EKG no dynamic changes no STEMI. The case was discussed with hospital medicine regarding management they will admit the patient their service for continued evaluation at this time. Critical Care Critical Care Time Critical Care Time: Yes Attestation: On 03/26/25, the high probability of a clinically significant, sudden or life threatening deterioration of the following system(s) required my full and direct attention, intervention and personal management. The time I documented below is in addition to time spent performing reported procedures but includes the following listed in this critical care notation. Total Time Total Critical Care Time: 45
[2025-03-26] MEDS: 0.9 % SODIUM CHLORIDE 50 ML VIAL IV ×2 (09:42→11:09)
[2025-03-26] MEDS: IOPAMIDOL-370 (76%);100ML BOTTLE 80 ML IV (09:42)
[2025-03-26] MEDS: SODIUM CHLORIDE 0.9% 10ML SYR (RAD ONLY) 10 ML IV ×2 (09:43→11:09)
[2025-03-26 09:46] LABS: Albumin Level 4.8 g/dl (3.5-5.0); Chloride 100 mmol/L (98-107); Hematocrit 42.7 % (37.0-47.0); Hemoglobin 14.1 g/dL (12.2-16.2); Immature Granulocytes % 0.3 %; Mean Corpuscular HGB Conc 33.0 g/dL (31.8-35.4); Mean Corpuscular Hemoglobin 29.5 pg (27.0-31.2); Mean Corpuscular Volume 89.3 fl (81-99); Nucleated Red Blood Cells % 0 %; Platelet Count 138 K/mm3 (142-424); Red Blood Count 4.78 M/mm3 (4.20-5.40); Red Cell Distribution Width-SD 41.9 fL; White Blood Count 7.3 K/mm3 (4.8-10.8)
[2025-03-26 09:47] LABS: Potassium 3.8 mmoL/L (3.5-5.1); Sodium 139 mmol/L (136-145)
[2025-03-26 09:49] LABS: Alanine Aminotransferase 19 U/L (12-78); Anion Gap 10.8 mEq/L (5-15); Aspartate Amino Transferase 30 U/L (14-36); Blood Urea Nitrogen 7 mg/dl (7-17); Carbon Dioxide 32 mmol/L (22.0-30.0); Creatinine,Serum 0.70 mg/dl (0.52-1.04); Estimated Glomerular Filt Rate 87 ml/min (>60); GFR (African American) 105 ML/MIN (>60)
--- NOTE | 2025-03-26 09:49 | XR_ITS ---
PROCEDURE INFORMATION: Exam: XR Chest Exam date and time: 03/26/2025 10:12 AM Age: 54 years old Clinical indication: Fever; Additional info: Fever encephalopathy TECHNIQUE: Imaging protocol: Radiologic exam of the chest. Views: 1 view. COMPARISON: CR XR CHEST 2V 12/17/2021 12:24 PM FINDINGS: Lungs: Heterogeneous opacities project over the left mid lung and bilateral lower lungs (left greater than right). Right upper lung is relatively clear. Pleural spaces: Unremarkable. No pleural effusion. No pneumothorax. Heart/Mediastinum: Cardiomegaly, accentuated by low lung volumes. Calcified right upper paratracheal lymph node measuring 14 mm craniocaudal is noted. No distinct hilar adenopathy. Bones/joints: Unremarkable. IMPRESSION: 1. Heterogeneous opacities project over the left mid lung and bilateral lower lungs (left greater than right). Right upper lung is relatively clear. Concerning for infectious (including atypical) versus inflammatory etiology. Recommend imaging follow-up to resolution. 2. Calcified right upper paratracheal lymph node measuring 14 mm craniocaudal is noted. No distinct hilar adenopathy.
[2025-03-26 09:50] LABS: Albumin/Globulin Ratio 2.5 (1.1-1.8); Alkaline Phosphatase 58 U/L (38-126); Bilirubin,Total 0.8 mg/dl (0.2-1.3); Calcium 9.1 mg/dl (8.4-10.2); Cholesterol 160 mg/dl (140-200); Globulin 1.9 g/dL (1.3-3.2); Glucose 120 mg/dl (74-100); HDL Cholesterol 71 mg/dl (40-60); Total Protein,Serum 6.7 g/dl (6.3-8.2); Triglycerides 40 mg/dl (30-150)
--- OUTSIDE RECORDS SUMMARY | 2025-03-26 09:50 | XMS_ITS | Clinical Summary ---
Author Organization [facility] Address [address], [address] [place] [address] Care Team Providers Care Greeting Card Writer Name Role Phone Mariano Pedraza MD Primary Care Provider [phone] Social History Tobacco Use Types Packs/Day Years Used Date Smoking Tobacco: Never Assessed Comments Unknown Sex and Gender Information Value Date Recorded Sex Assigned at Not on file Legal Sex Female 3:08 AM EST Gender Identity Not on file Sexual Orientation Not on file Plan of Treatment Not on file Insurance [facility] Care Teams Greeting Card Writer Relationship Specialty Start Date End Date Mariano Pedraza MD [address] [facility] [address] [place] [id number] PCP - General Internal Medicine 10/22/18
[2025-03-26 09:51] LABS: Activated Partial Thrombo Time 25.2 seconds (22.8-30.6); INR 1.03 (0.9-1.1); Prothrombin Time 11.4 seconds (10.1-12.5)
--- NOTE | 2025-03-26 09:52 | ECG_ITS ---
APPROVED REPORT Exam: Resting ECG HR:112 bpm ECG Measurements Heart Rate 112 AXES OR 157 P 62 QRSd 95 QRS 82 QT 318 T 62 QTc 384 Conclusion SINUS TACHYCARDIA ABNORMAL RHYTHM ECG UNCONFIRMED REPORT Electronically signed by : ELAYNE HERNÁNDEZ, 03/27/2025 02:17:59
[2025-03-26 10:01] LABS: Troponin I 0.14 ng/ml (0.00-0.034)
[2025-03-26 10:11] LABS: Adenovirus,PCR Not Detected (NotDetected); Chlamydophila Pneumoniae, PCR Not Detected (NotDetected); Coronavirus 19, PCR Not Detected (NotDetected); Coronovirus HKU1,PCR Not Detected (NotDetected); Influenza A, PCR Not Detected (NotDetected); Influenza AH1, 2009 Not Detected (NotDetected); Influenza AH1, PCR Not Detected (NotDetected); Influenza AH3,PCR Not Detected (NotDetected); Influenza B, PCR Not Detected (NotDetected); Mycoplasma Pneumoniae, PCR Not Detected (NotDetected); Parainfluenza 1, PCR Not Detected (NotDetected); Parainfluenza 2, PCR Not Detected (NotDetected); Parainfluenza 3, PCR Not Detected (NotDetected); Parainfluenza 4, PCR Not Detected (NotDetected)
[2025-03-26 10:11] LABS: Coronavirus 19, PCR Not Detected (NotDetected); Influenza A, PCR Not Detected (NotDetected); Influenza B, PCR Not Detected (NotDetected)
[2025-03-26 10:11] LABS: RBC Morphology Normal; Total Cells Counted 100
[2025-03-26] MEDS: ONDANSETRON 4MG/2ML VIAL 4 MG IV (10:17)
[2025-03-26] MEDS: CEFTRIAXONE 1 GM 1 GM in 0.9 % SODIUM CHLORIDE 50 ML IV (10:32)
[2025-03-26] MEDS: ACETAMINOPHEN 1,000MG/100ML VIAL 1000 MG IV (10:32)
--- NOTE | 2025-03-26 10:36 | CT_ITS ---
PROCEDURE INFORMATION: Exam: CTA Chest With Contrast Exam date and time: 03/26/2025 10:59 AM Age: 54 years old Clinical indication: Shortness of breath; Additional info: SOB , encephalopahty, hypoxia TECHNIQUE: Imaging protocol: Computed tomographic angiography of the chest with contrast. Exam focused on the arteries. 3D rendering (Not supervised by radiologist): MIP and/or 3D reconstructed images were created by the technologist. Radiation optimization: All CT scans at this facility use at least one of these dose optimization techniques: automated exposure control; mA and/or kV adjustment per patient size (includes targeted exams where dose is matched to clinical indication); or iterative reconstruction. Contrast material: ISO 370; Contrast volume: 70 ml; Contrast route: INTRAVENOUS (IV); COMPARISON: CR XR CHEST PORTABLE 03/26/2025 10:12 AM FINDINGS: Pulmonary arteries: Normal. No pulmonary emboli. Aorta: Unremarkable. No aortic aneurysm. No aortic dissection. Lungs: Multiple heterogeneous patchy solid and ground-glass opacities in the bilateral lungs, most prominently left mid/lower lung. Pleural spaces: Unremarkable. No pneumothorax. No pleural effusion. Heart: Unremarkable. No cardiomegaly. No pericardial effusion. Lymph nodes: Several mildly prominent mediastinal lymph nodes, subcentimeter, likely reactive. No distinct hilar adenopathy. Gallbladder and biliary ducts: No distinct cholelithiasis. Note is made of moderate extrahepatic biliary dilatation (CBD measuring up to 9 mm). The distal CBD/ampullary junction is not well seen. Pancreas: No pancreatic ductal dilatation. Spleen: Mild splenomegaly. Bones/joints: Sclerotic focus in T1 vertebral body measuring 4 x 5 mm most suggestive of bone island. No acute osseous abnormality. Soft tissues: No soft tissue abnormality. IMPRESSION: 1. Multiple heterogeneous patchy solid and ground-glass opacities in the bilateral lungs, most prominently left mid/lower lung. Concerning for infectious (including atypical) versus inflammatory etiology. Recommend imaging follow-up to resolution. 2. No distinct cholelithiasis. Note is made of moderate extrahepatic biliary dilatation (CBD measuring up to 9 mm). The distal CBD/ampullary junction is not well seen. Nonspecific.. Recommend CT abdomen and pelvis or MRI for complete evaluation according to clinical discretion.
[2025-03-26 10:46] LABS: Free T4 (Free Thyroxine) 1.07 ng/dl (0.78-2.19)
[2025-03-26 10:52] LABS: Strep Scrn Group A (Rapid) Negative (Negative)
[2025-03-26 11:00] LABS: Thyroid Stimulating Hormone 1.03 uIU/mL (0.465-4.68)
[2025-03-26] MEDS: IOPAMIDOL-370 (76%);100ML BOTTLE 70 ML IV (11:07)
[2025-03-26] MEDS: METHYLPREDNISOLONE SOD SUCC 125MG VIAL 125 MG IV (11:17)
[2025-03-26] MEDS: LACTATED RINGERS 1000ML 1,710 ML 855 ML IV (11:19)
[2025-03-26 11:25] LABS: Microscopic, Urine URINE MICROSCOPIC (MICROSCOPIC)
[2025-03-26 11:31] LABS: Bilirubin,Urine Negative (Negative); Color,Urine YELLOW (Yellow); Glucose,Urine (UA) TRACE (Negative); Ketones,Urine Negative (Negative); Leukocyte Esterase,Urine Negative (Negative); PH,Urine 6.0 (5.0-8.5); Protein,Urine Negative (Negative); Specific Gravity, Urine 1.010 (1.005-1.030); Urobilinogen,Urine 0.2 EU/dl (0.2)
[2025-03-26 11:34] LABS: Lactate Venous 1.7 mmol/L (0.4-2.0); VBG HCO3 27.3 mmol/L (23-30); VBG PCO2 43.4 mmol/L (35-51); VBG PH 7.42 mmol/L (7.31-7.41); VBG PO2 68.9 mmol/L (28-40)
[2025-03-26 11:38] LABS: Ammonia < 9 umol/L (9-30)
[2025-03-26] MEDS: VANCOMYCIN/WATER FOR INJ (PEG) 1.25 GM/250 ML PIGGYBACK IV (11:40)
[2025-03-26 11:43] LABS: Amphetamine/Metha Screen,Urine Negative ng/ml (<1000); Barbiturates Screen,Urine Negative ng/ml (<200)
[2025-03-26 11:44] LABS: Benzodiazepines Screen,Urine Negative ng/ml (<200)
[2025-03-26 11:48] LABS: Opiate Screen,Urine Positive ng/ml (<300); Phencyclidine Screen,Urine Negative ng/ml (<25)
[2025-03-26 11:53] LABS: Methadone Screen,Urine Negative ng/ml (<300)
[2025-03-26 11:57] LABS: RBC,Urine Occasional #/hpf (0-3)
[2025-03-26 12:40] LABS: Hepatitis C Ab Qual. W/ RFX NEGATIVE (Negative)
[2025-03-26 13:06] LABS: Troponin I 0.15 ng/ml (0.00-0.034)
--- NOTE | 2025-03-26 13:29 | ECG_ITS ---
APPROVED REPORT Exam: Resting ECG HR:96 bpm ECG Measurements Heart Rate 96 AXES MI 159 P 59 QRSd 98 QRS 39 QT 363 T 65 QTc 417 Conclusion SINUS RHYTHM NORMAL ECG UNCONFIRMED REPORT Electronically signed by : ELAYNE HERNÁNDEZ, 03/27/2025 02:16:21
--- NOTE | 2025-03-26 14:04 | PC.NURSE ---
Notified HS of the need for a bed to admit the pt to the hospitalist.
--- NOTE | 2025-03-26 14:17 | HMH.PHAINT1 ---
Pharmacy Intervention Comments: MEDICATION RECONCILIATION COMPLETED ON PATIENT USING EXTERNAL FILL HISTORY FROM PHARMACY. -BECCA VAZQUEZ, RASHAUND
--- NOTE | 2025-03-26 14:17 | PC.NURSE ---
report called to jaison chapa on second floor
[2025-03-26] MEDS: AZITHROMYCIN 500 MG in 0.9 % SODIUM CHLORIDE 250 ML 250 MG IV (14:59)
[2025-03-26 15:31] LABS: Troponin I 0.09 ng/ml (0.00-0.034)
--- NOTE | 2025-03-26 17:12 | EXP.HP ---
History of Present Illness *Admission Date: 03/26/25 *Reason for visit:: Weakness, sore throat, fevers *History of present illness: Martine Patiño is a 54-year-old female with a medical history significant for chronic pain from cervical degenerative disc disease, herniation, neuroforaminal narrowing presents with 2 weeks of progressive weakness. Patient states she has had chronic pain from cervical disease as noted before, and has been using multimodal pain management for relief. She was recently started on gabapentin 200 mg nightly 2 weeks ago, after which patient states she has felt more more weak, drowsy. Over the past few days, patient also endorses sore throat and even worsened drowsiness with fevers. Her family member had a difficult time waking her up this morning. Denies chest pains, abdominal pain, constipation/diarrhea. Workup in the ED significant for WBC 7.3, troponin peaking at 0.14, downtrending to 0.06, UA normal, UDS positive for opiates, full respiratory panel normal. CTA chest revealed multifocal pneumonia, and moderate extrabiliary dilatation with CBD measuring up to 9 mm. No abdominal pain noted. Patient is also requiring 2 L which is a new requirement. Given these findings, ED provider discussed case with me and I decided to admit patient for acute hypoxic respiratory failure secondary to community-acquired pneumonia, sedation from polypharmacy. [facility] Disclaimer: The information contained in this section may have been updated after the patient was seen, as this information can be updated by other users. Medical History (Updated 03/26/25 @ 14:04 by Zackery Monge MD) Constipation in female GERD (gastroesophageal reflux disease) Pituitary mass Chronic cough Deviated septum Hoarseness or changing voice Nasal drainage Thyroid disease Surgical History (Updated 03/17/25 @ 14:21 by JO ANN Mccray) History of ankle surgery Hx of arthroscopic knee surgery History of delivery Family History Other Family history of hypothyroidism Social History Smoking Status: Current every day smoker second hand exposure: No alcohol intake: current alcohol intake frequency: holidays/special occasions only substance use type: denies use current occupational status: other Travel in the last 8 weeks?: None household members: spouse and family housing: house current occupation: [employer] current occupational exposures/hazards: No caffeine: Yes Have you lived/traveled outside [place] in past 30 days?: No Contact w/someone who lives/traveled outside US past 30 days?: No Exposure to someone with infectious disease in past 14 days?: No Do you have a fever (greater than 100.4 F or 38 C)?: No Have you tested positive for COVID-19?: No Exposed to someone with COVID-19 in past 14 days?: No Do you have a sore throat?: No Do you have a cough?: No Do you have any weakness?: No Do you have any diarrhea?: No Are you experiencing any unusual bleeding?: No Do you have any muscle aches/pain?: No Do you have any abdominal pain?: No Are you experiencing loss of taste or smell?: No Other Medical History Have you received the Flu Vaccine for this season: Yes Have you received the Pneumonia Vaccine: No Meds Home Medications and Allergies Home Medications ?Medication ?Instructions ?Recorded ?Confirmed ?Type amitriptyline 100 mg tablet 100 mg PO HS 06/14/20 03/26/25 History temazepam 15 mg capsule 15 mg PO HS 06/14/20 03/26/25 History levothyroxine 88 mcg tablet 88 mcg PO DAILY 04/03/22 03/26/25 History omeprazole 40 mg capsule,delayed 40 mg PO DAILY 10/03/22 03/26/25 History release famotidine 40 mg tablet 40 mg PO HS 10/10/22 03/26/25 History tizanidine 2 mg tablet 2 mg PO HS 10/10/22 03/26/25 History gabapentin 100 mg capsule 100 - 200 mg PO HS 03/17/25 03/26/25 History oxycodone 10 mg tablet 10 mg PO TID 03/17/25 03/26/25 History estradiol 0.01% (0.1 mg/gram) 1 g vaginal HS 03/26/25 03/26/25 History vaginal cream (Estrace) New Prescriptions to Start Prescriptions: Allergies Allergy/AdvReac Type Severity Reaction Status Date / Time acetaminophen (From Midrin) AdvReac Hallucinati Verified 03/17/25 13:59 ng dichloralphenazone (From AdvReac Hallucinati Verified 03/17/25 13:59 Midrin) ng isometheptene (From Midrin) AdvReac Hallucinati Verified 03/17/25 13:59 ng Exam Data for Last 24 hours Vital signs and Labs for Last 24 Hours: Temp Pulse Resp BP Pulse Ox O2 Del Method O2 Flow Rate 97.9 F 97 H 18 121/61 97 Nasal Cannula 2 03/26/25 15:52 03/26/25 15:52 03/26/25 15:52 03/26/25 15:52 03/26/25 15:52 03/26/25 17:00 03/26/25 17:00 Laboratory Results - last 24 hr 03/26/25 09:30: WBC 7.3, RBC 4.78, Hgb 14.1, Hct 42.7, MCV 89.3, MCH 29.5, MCHC 33.0, RDW 12.8, Plt Count 138 L, MPV 9.8, Neut % (Auto) 90.4 H, Lymph % (Auto) 4.8 L, [place] % (Auto) 4.4, Eos % (Auto) 0.0 L, Baso % (Auto) 0.1, Neut # (Auto) 6.6, Lymph # (Auto) 0.4 L, [place] # (Auto) 0.3, Eos # (Auto) 0.0, Baso # (Auto) 0.0, Total Counted 100, Neutrophils % (Manual) 88 H, Lymphocytes % (Manual) 6 L, Monocytes % (Manual) 5, Basophils % (Manual) 1.0, Platelet Estimate Normal, RBC Morphology Normal, PT 11.4, INR 1.03, APTT 25.2, Sodium 139, Potassium 3.8, Chloride 100, Carbon Dioxide 32 H, Anion Gap 10.8, BUN 7, Creatinine 0.70, Estimated GFR 87, Est GFR ( Amer) 105, Glucose 120 H, Calcium 9.1, Total Bilirubin 0.8, AST 30, ALT 19, Alkaline Phosphatase 58, Troponin I 0.14 H, Total Protein 6.7, Albumin 4.8, Globulin 1.9, Albumin/Globulin Ratio 2.5 H, Triglycerides 40, Cholesterol 160, LDL Cholesterol Direct 84.04 L, VLDL Cholesterol 8, HDL Cholesterol 71 H, Cholesterol/HDL Ratio 2.3, TSH 1.03, Free T4 1.07, Plasma/Serum Alcohol < 10 03/26/25 10:03: Chlamy pneumoniae PCR Not detected, Adenovirus (PCR) Not detected, B. pertussis DNA (PCR) Not detected, Coronavirus OC43 (PCR) Not detected, Coronavirus HKU1 (PCR) Not detected, Coronavirus 229E (PCR) Not detected, SARS-CoV-2 (PCR) Not detected, Coronavirus NL63 (PCR) Not detected, Human Metapneumovir PCR Not detected, Influenza A (H1) PCR Not detected, Influ A (H1N1/09) PCR Not detected, Influenza A (H3) PCR Not detected, Influenza Type A (PCR) Not detected, Influenza Type B (PCR) Not detected, M. pneumoniae (PCR) Not detected, Parainfluenza 1 (PCR) Not detected, Parainfluenza 2 (PCR) Not detected, Parainfluenza 3 (PCR) Not detected, Parainfluenza 4 (PCR) Not detected, RSV (PCR) Not detected, Entero/Rhino (PCR) Not detected 03/26/25 10:04: SARS-CoV-2 (PCR) Not detected, HCV Ab CLEMENTE w/Rflx PCR Qn Negative, HIV Ag/Ab Combo Qual Negative, Influenza A Untype (PCR) Not detected, Influenza Type B (PCR) Not detected 03/26/25 10:29: Group A Strep Rapid Negative 03/26/25 11:18: Troponin I 0.15 H 03/26/25 11:20: Ammonia < 9 L 03/26/25 11:22: Urine Color Yellow, Urine Appearance Clear, Urine pH 6.0, Ur Specific [place] 1.010, Urine Protein Negative, Urine Glucose (UA) Trace, Urine Ketones Negative, Urine Blood Trace-i, Urine Nitrate Negative, Urine Bilirubin Negative, Urine Urobilinogen 0.2, Ur Leukocyte Esterase Negative, Urine RBC Occasional, Urine WBC None, Ur Squamous Epith Cells 3-5, Urine Bacteria None, Urine Opiates Screen Positive H, Urine Methadone Screen Negative, Ur Barbituates Screen Negative, Ur Phencyclidine Scrn Negative, Ur Amphetamines Screen Negative, U Benzodiazepines Scrn Negative, Urine Cocaine Screen Negative, U Marijuana (THC) Screen Negative 03/26/25 11:25: VBG pH 7.42 H, VBG pCO2 43.4, VBG pO2 68.9 H, VBG HCO3 27.3, VBG Total CO2 28.7 H, VBG O2 Saturation 94.9 H, VBG Base Excess 2.8 H, VBG Lactic Acid 1.7 03/26/25 15:05: Troponin I 0.09 H I & O for Last 24 hours: Intake & Output 03/23/25 03/24/25 03/25/25 03/26/25 23:59 23:59 23:59 23:59 Intake Total 2260 / 2260 Balance 2260 / 2260 Weight 90.718 kg Constitutional Constitutional: no acute distress and chronically ill appearing Comments: Drowsy. *Routine HEENT Exam Head: Present normocephalic Eye: Present EOMI and PERRL ENT: Present mucous membranes moist *Routine Neck Exam Neck: Present supple; Absent lymphadenopathy *Routine Respiratory Exam Respiratory: Present CTA bilaterally *Routine Cardiovascular Exam Cardiovascular: Present RRR *Routine Abdominal Exam Abdominal: Present soft and normoactive bowel sounds; Absent tenderness *Routine Rectal Exam Rectal:: deferred *Routine Genitalia Exam Genitalia:: deferred *Routine Extremities Exam Extremities: Absent cyanosis, clubbing or edema *Routine Skin Exam Skin: Present warm; Absent rash *Routine Neurological Exam Neurological: Present alert and oriented X3 Assessment and Plan *Assessment and plan (1) Acute non-ST elevation myocardial infarction (NSTEMI): Status: Acute Category: Medical Code(s): I21.4 - Non-ST elevation (NSTEMI) myocardial infarction (2) Polypharmacy: Status: Acute Category: Medical Code(s): Z79.899 - Other termination clerk (current) drug therapy (3) Pneumonia: Status: Acute Category: Medical Code(s): J18.9 - Pneumonia, unspecified organism Plan Martine Patiño is a 54-year-old female with a medical history significant for chronic pain from cervical degenerative disc disease, herniation, neuroforaminal narrowing presents with 2 weeks of progressive weakness. Patient states she has had chronic pain from cervical disease as noted before, and has been using multimodal pain management for relief. She was recently started on gabapentin 200 mg nightly 2 weeks ago, after which patient states she has felt more more weak, drowsy. Over the past few days, patient also endorses sore throat and even worsened drowsiness with fevers. Her family member had a difficult time waking her up this morning. Denies chest pains, abdominal pain, constipation/diarrhea. Workup in the ED significant for WBC 7.3, troponin peaking at 0.14, downtrending to 0.06, UA normal, UDS positive for opiates, full respiratory panel normal. CTA chest revealed multifocal pneumonia, and moderate extrabiliary dilatation with CBD measuring up to 9 mm. No abdominal pain noted. Patient is also requiring 2 L which is a new requirement. Given these findings, ED provider discussed case with me and I decided to admit patient for acute hypoxic respiratory failure secondary to community-acquired pneumonia, sedation from polypharmacy. #Acute hypoxic respiratory failure #Community-acquired pneumonia, possible aspiration ? Presented with several days of worsening weakness, sore throat. CTA chest shows multifocal pneumonia, fever as high as 103.4 here, though WBC normal and no signs of sepsis. ? Full respiratory panel and strep screen normal. ? Sore throat, multifocal pneumonia could very well be from aspiration from oversedation due to multiple sedative medications. See below. ? Started ceftriaxone 1 g daily, azithromycin 250 mg daily. ? Follow-up sputum, blood cultures. ? Aspiration precautions. ? Currently requiring 2 L, baseline room air. Wean as tolerated. #Chronic pain #Cervical degenerative disc disease, herniation, neuroforaminal narrowing #Acute metabolic encephalopathy #Polypharmacy ? Unfortunately, patient has dealt with chronic cervical pain requiring multimodal pain management. ? Due to insufficiency, gabapentin 200 mg nightly was started recently about 2 weeks ago. Since then, patient states she is been more drowsy. ? Patient currently takes amitriptyline, gabapentin, oxycodone, temazepam, tizanidine. Hold these for now, and plan to discontinue gabapentin. ? Patient may benefit from referral to pain management, will discuss tomorrow. #NSTEMI, likely type II ? Presented with weakness, troponin peaked at 0.15 and downtrending to 0.06. EKG without acute ischemic changes denies chest pain, shortness of breath. ? In the setting of community-acquired pneumonia, hypoxic respiratory failure. ? Started aspirin 81 mg. ? Plan for close follow-up with cardiology. #GERD ? Continue PPI. #Hypothyroidism ? Continue home levothyroxine 88 mcg. Follow-up TFTs. Full code DVT prophylaxis: Lovenox 40 mg Medications: Hold as above.
[2025-03-26 17:33] LABS: Troponin I 0.06 ng/ml (0.00-0.034)
[2025-03-26 18:17] LABS: C-Reactive Protein 79.5 mg/L (0-4)
[2025-03-26 18:24] LABS: Procalcitonin 6.74 ng/mL (0.0-2.0)
[2025-03-26] MEDS: OXYCODONE 5MG IMMEDIATE RELEASE TABLET 5 MG PO (20:33)
[2025-03-26] MEDS: PANTOPRAZOLE 40MG TABLET 40 MG PO (20:34)
[2025-03-27] VITALS (11 sets, daily range): BP systolic 90–100; BP diastolic 49–65; PULSE 94–120; RESP 14–18; TEMP 37.2–37.9; O2SAT 92–97; BMI 22.4
--- NOTE | 2025-03-27 03:49 | PC.NURSE ---
Pt is A&OX4 and has tolerated 2L nasal cannula. She has been very weak this shift. Purewick has remained in place. Medicated for pain per MAR. No complaints at this time, call light within reach.
[2025-03-27 08:11] LABS: Hematocrit 35.7 % (37.0-47.0); Immature Granulocytes % 1.7 %; Mean Corpuscular HGB Conc 32.8 g/dL (31.8-35.4); Mean Corpuscular Hemoglobin 29.4 pg (27.0-31.2); Mean Corpuscular Volume 89.7 fl (81-99); Nucleated Red Blood Cells % 0 %; Platelet Count 159 K/mm3 (142-424); Red Blood Count 3.98 M/mm3 (4.20-5.40); Red Cell Distribution Width-SD 42.5 fL; White Blood Count 16.5 K/mm3 (4.8-10.8)
[2025-03-27 08:24] LABS: Hemoglobin 11.8 g/dL (12.2-16.2)
[2025-03-27 08:28] LABS: Alanine Aminotransferase 16 U/L (12-78); Albumin Level 3.6 g/dl (3.5-5.0); Albumin/Globulin Ratio 1.3 (1.1-1.8); Alkaline Phosphatase 59 U/L (38-126); Anion Gap 9.7 mEq/L (5-15); Aspartate Amino Transferase 28 U/L (14-36); Bilirubin,Total 0.4 mg/dl (0.2-1.3); Blood Urea Nitrogen 10 mg/dl (7-17); Calcium 9.3 mg/dl (8.4-10.2); Carbon Dioxide 27 mmol/L (22.0-30.0); Chloride 104 mmol/L (98-107); Creatinine Clearance Estimated 101 mL/min (50-200); Creatinine,Serum 0.60 mg/dl (0.52-1.04); Estimated Glomerular Filt Rate 103 ml/min (>60); GFR (African American) 125 ML/MIN (>60); Globulin 2.7 g/dL (1.3-3.2); Glucose 113 mg/dl (74-100); Magnesium 1.8 mg/dl (1.6-2.3); Potassium 3.7 mmoL/L (3.5-5.1); Sodium 137 mmol/L (136-145); Total Protein,Serum 6.3 g/dl (6.3-8.2)
[2025-03-27 08:33] LABS: C-Reactive Protein 285.6 mg/L (0-4)
[2025-03-27 08:45] LABS: Procalcitonin 9.69 ng/mL (0.0-2.0)
[2025-03-27 08:59] LABS: Thyroid Stimulating Hormone 0.26 uIU/mL (0.465-4.68)
[2025-03-27] MEDS: OXYCODONE 5MG IMMEDIATE RELEASE TABLET 5 MG PO ×3 (09:12→22:07)
[2025-03-27] MEDS: AZITHROMYCIN 250MG TABLET 250 MG PO (09:12)
[2025-03-27] MEDS: CEFTRIAXONE 1 GM 1 GM in 0.9 % SODIUM CHLORIDE 50 ML IV (09:13)
[2025-03-27] MEDS: LEVOFLOXACIN/D5W 750 MG/150 ML 750 MG/150 ML PIGGYBACK 100 MG IV (10:42)
[2025-03-27] MEDS: IPRATROPIUM/ALBUTEROL 3 ML NEB IH ×2 (11:46→18:01)
[2025-03-27] MEDS: SODIUM CHLORIDE 3% 15ML NEB 3 ML IH (11:46)
--- NOTE | 2025-03-27 11:50 | XR_ITS ---
PROCEDURE INFORMATION: Exam: XR Chest Exam date and time: 03/27/2025 2:28 PM Age: 54 years old Clinical indication: Shortness of breath; Additional info: SOB TECHNIQUE: Imaging protocol: Radiologic exam of the chest. Views: 1 view. COMPARISON: CT ANGIO CHEST PE PROTOCOL 03/26/2025 10:59 AM FINDINGS: Lungs: Opacity in the left midlung and left base may represent atelectasis or pneumonia. Pleural spaces: Unremarkable. No pleural effusion. No pneumothorax. Heart/Mediastinum: Unremarkable. No cardiomegaly. Bones/joints: Unremarkable. IMPRESSION: Opacity in the left midlung and left base may represent atelectasis or pneumonia.
--- NOTE | 2025-03-27 12:04 | EXP.PN ---
Subjective *Date: 03/27/25 *Time: 12:04 Interval history: This morning, patient stated she feels much better. On room air. Later in the morning, patient began to have slightly increased work of breathing. Will monitor and treat overnight. Follow-up CXR. Exam Data for Last 24 hours Vital signs and Labs for Last 24 Hours: Temp Pulse Resp BP Pulse Ox O2 Del Method O2 Flow Rate 98.9 F 105 H 18 96/58 L 95 Nasal Cannula 2 03/27/25 08:00 03/27/25 11:48 03/27/25 11:48 03/27/25 08:00 03/27/25 11:48 03/27/25 11:48 03/27/25 11:48 Laboratory Results - last 24 hr 03/26/25 10:03: Chlamy pneumoniae PCR Not detected, Adenovirus (PCR) Not detected, B. pertussis DNA (PCR) Not detected, Coronavirus OC43 (PCR) Not detected, Coronavirus HKU1 (PCR) Not detected, Coronavirus 229E (PCR) Not detected, SARS-CoV-2 (PCR) Not detected, Coronavirus NL63 (PCR) Not detected, Human Metapneumovir PCR Not detected, Influenza A (H1) PCR Not detected, Influ A (H1N1/09) PCR Not detected, Influenza A (H3) PCR Not detected, Influenza Type A (PCR) Not detected, Influenza Type B (PCR) Not detected, M. pneumoniae (PCR) Not detected, Parainfluenza 1 (PCR) Not detected, Parainfluenza 2 (PCR) Not detected, Parainfluenza 3 (PCR) Not detected, Parainfluenza 4 (PCR) Not detected, RSV (PCR) Not detected, Entero/Rhino (PCR) Not detected 03/26/25 10:04: HCV Ab CLEMENTE w/Rflx PCR Qn Negative, HIV Ag/Ab Combo Qual Negative 03/26/25 11:18: Troponin I 0.15 H 03/26/25 12:27: C-Reactive Protein 79.5 H, Procalcitonin 6.74 H 03/26/25 15:05: Troponin I 0.09 H 03/26/25 16:55: Troponin I 0.06 H 03/27/25 07:05: WBC 16.5 H D, RBC 3.98 L, Hgb 11.8 L D, Hct 35.7 L, MCV 89.7, MCH 29.4, MCHC 32.8, RDW 12.9, Plt Count 159, MPV 10.3, Neut % (Auto) 90.3 H, Lymph % (Auto) 4.6 L, [place] % (Auto) 3.2, Eos % (Auto) 0.0 L, Baso % (Auto) 0.2, Neut # (Auto) 14.9 H, Lymph # (Auto) 0.8, [place] # (Auto) 0.5, Eos # (Auto) 0.0, Baso # (Auto) 0.0, Sodium 137, Potassium 3.7, Chloride 104, Carbon Dioxide 27, Anion Gap 9.7, BUN 10 D, Creatinine 0.60, Estimated Creat Clear 101, Estimated GFR 103, Est GFR ( Amer) 125, Glucose 113 H, Calcium 9.3, Magnesium 1.8, Total Bilirubin 0.4, AST 28, ALT 16, Alkaline Phosphatase 59, C-Reactive Protein 285.6 H, Total Protein 6.3, Albumin 3.6 D, Globulin 2.7, Albumin/Globulin Ratio 1.3, Procalcitonin 9.69 H, TSH 0.26 L D I & O for Last 24 hours: Intake & Output 03/24/25 03/25/25 03/26/25 03/27/25 23:59 23:59 23:59 23:59 Intake Total 2500 / 2700 550 / 550 Output Total 300 / 300 Balance 2500 / 2700 250 / 250 Weight 90.718 kg 60.963 kg Microbiology Reports for the Last 24 Hours: Microbiology 03/26/25 09:58 Blood Blood Culture - Preliminary NO GROWTH AFTER 24 HOURS 03/26/25 09:52 Blood Blood Culture - Preliminary NO GROWTH AFTER 24 HOURS Constitutional Constitutional: no acute distress *Routine HEENT Exam Head: Present normocephalic Eye: Present EOMI and PERRL ENT: Present mucous membranes moist *Routine Neck Exam Neck: Present supple; Absent lymphadenopathy *Routine Respiratory Exam Respiratory: Present CTA bilaterally *Routine Cardiovascular Exam Cardiovascular: Present RRR *Routine Abdominal Exam Abdominal: Present soft and normoactive bowel sounds; Absent tenderness *Routine Extremities Exam Extremities: Absent cyanosis, clubbing or edema *Routine Skin Exam Skin: Present warm; Absent rash *Routine Neurological Exam Neurological: Present alert and oriented X3 Assessment and Plan *Assessment and plan (1) Acute non-ST elevation myocardial infarction (NSTEMI): Status: Acute Category: Medical Code(s): I21.4 - Non-ST elevation (NSTEMI) myocardial infarction (2) Polypharmacy: Status: Acute Category: Medical Code(s): Z79.899 - Other longterm (current) drug therapy (3) Pneumonia: Status: Acute Category: Medical Code(s): J18.9 - Pneumonia, unspecified organism Plan Martine Patiño is a 54-year-old female with a medical history significant for chronic pain from cervical degenerative disc disease, herniation, neuroforaminal narrowing presents with 2 weeks of progressive weakness. Patient states she has had chronic pain from cervical disease as noted before, and has been using multimodal pain management for relief. She was recently started on gabapentin 200 mg nightly 2 weeks ago, after which patient states she has felt more more weak, drowsy. Over the past few days, patient also endorses sore throat and even worsened drowsiness with fevers. Her family member had a difficult time waking her up this morning. Denies chest pains, abdominal pain, constipation/diarrhea. Workup in the ED significant for WBC 7.3, troponin peaking at 0.14, downtrending to 0.06, UA normal, UDS positive for opiates, full respiratory panel normal. CTA chest revealed multifocal pneumonia, and moderate extrabiliary dilatation with CBD measuring up to 9 mm. No abdominal pain noted. Patient is also requiring 2 L which is a new requirement. Given these findings, ED provider discussed case with me and I decided to admit patient for acute hypoxic respiratory failure secondary to community-acquired pneumonia, sedation from polypharmacy. #Acute hypoxic respiratory failure #Community-acquired pneumonia, possible aspiration #Sepsis ? Presented with several days of worsening weakness, sore throat. CTA chest shows multifocal pneumonia, fever as high as 103.4 here, though WBC normal and no signs of sepsis. ? Full respiratory panel and strep screen normal. ? Sore throat, multifocal pneumonia could very well be from aspiration from oversedation due to multiple sedative medications. See below. ? WBC bumped from 7.3-16.5, though in the setting of steroids. Heart rate 105, meeting sepsis criteria. CRP increased to 285, procalcitonin up to 9.69 today. ? This morning, patient stated she feels much better. On room air. Later in the morning, patient began to have slightly increased work of breathing. Will monitor and treat overnight. Follow-up CXR. ? Started DuoNebs every 6 hours. ? Switched to levofloxacin 750 mg daily. Discontinued ceftriaxone, azithromycin. ? Follow-up sputum, blood cultures. ? Aspiration precautions. ? Weaned to room air today. #Chronic pain #Cervical degenerative disc disease, herniation, neuroforaminal narrowing #Acute metabolic encephalopathy #Polypharmacy ? Unfortunately, patient has dealt with chronic cervical pain requiring multimodal pain management. ? Due to insufficiency, gabapentin 200 mg nightly was started recently about 2 weeks ago. Since then, patient states she is been more drowsy. ? Patient currently takes amitriptyline, gabapentin, oxycodone, temazepam, tizanidine. Restarted oxycodone at a lower dose of 5 mg every 8 hours as needed. Hold the rest for now as patient seems comfortable, and plan to discontinue gabapentin. ? Patient did not have a good experience with pain management, discussed with Dr. Bucio will follow-up with patient on Friday. #NSTEMI, likely type II ? Presented with weakness, troponin peaked at 0.15 and downtrending to 0.06. EKG without acute ischemic changes denies chest pain, shortness of breath. ? In the setting of community-acquired pneumonia, hypoxic respiratory failure. ? Continue aspirin 81 mg. ? Cardiology consulted, pending further recommendations. ? Follow-up ECHO. #GERD ? Continue PPI. #Hypothyroidism #Euthyroid sick syndrome ? Continue home levothyroxine 88 mcg. TSH low 0.26 in the setting of sepsis, free T4 normal. Follow-up outpatient TFTs once more stable. Full code DVT prophylaxis: Lovenox 40 mg Medications: Holding a few as above.
--- OUTSIDE RECORDS SUMMARY | 2025-03-27 13:40 | XMS_ITS | Clinical Summary ---
Author Organization [facility] Address [address], [address] [place] [address] Care Team Providers Care Linen Keeper Name Role Phone Mariano Pedraza MD Primary Care Provider [phone] Social History Tobacco Use Types Packs/Day Years Used Date Smoking Tobacco: Never Assessed Comments Unknown Sex and Gender Information Value Date Recorded Sex Assigned at Not on file Legal Sex Female 3:08 AM EST Gender Identity Not on file Sexual Orientation Not on file Plan of Treatment Not on file Insurance [facility] Care Teams Linen Keeper Relationship Specialty Start Date End Date Mariano Pedraza MD [address] [place] [id number] PCP - General Internal Medicine 10/22/18
--- OUTSIDE RECORDS SUMMARY | 2025-03-27 13:40 | XMS_ITS | Clinical Summary ---
Author Organization [facility] Address [address] [place] [address] Care Team Providers Care Black Oxide Operator Name Role Phone Mariano Pedraza MD Primary Care Provider [phone] Social History Tobacco Use Types Packs/Day Years Used Date Smoking Tobacco: Former Alcohol Use Standard Drinks/Week Comments Yes 0 (1 standard drink = 0.6 oz pur e alcohol) Comments Unknown Sex and Gender Information Value Date Recorded Sex Assigned at Not on file Legal Sex Female 8:01 PM EDT Gender Identity Not on file Sexual Orientation Not on file Last Filed Vital Signs Vital Sign Reading Time Taken Comments Blood Pressure - - Pulse - - Temperature - - Respiratory Rate - - Oxygen Saturation - - Inhaled Oxygen Concentration - - Weight 68 kg (149 lb 14.6 oz) 05/22/2016 9:28 AM EST Height 154.9 cm (5' 1 ) 12/07/2012 1:47 PM EDT Body Mass Index 28.33 12/07/2012 1:47 PM EDT Plan of Treatment Health Maintenance Due Date Last Done Comments [facility]-Depression Screening 1970 [facility]-Infant/Child/Adol SDOH Screenings 1970 [facility]- SDOH Screenings 1986 [facility]-Adult SDOH Screenings 1986 [facility]-DTaP,Tdap,and Td Vaccine s (1 - Tdap) 09/17/1987 [facility]-Hepatitis B Vaccines (1 of 3 - 19+ 3-dose series) 09/17/1987 CT Colonography 2013 Colonoscopy 2013 FIT-DNA 2013 FIT 2013 FOBT 2013 Sigmoidoscopy 2013 [facility]-Colorectal Cancer Screening 2013 [facility]-Pneumococcal Vaccine: 50 + Years (1 of 1 - PCV) 2018 [facility]-Pap Smear 05/22/2019 05/22/2016 [facility]-Cervical Cancer Screening 05/22/2021 [facility]-HPV/Cotest 05/22/2021 05/22/2016 [id number] Vaccine ( season) 2025 04/04/2021, 08/16/2020, 07/19/2020 [facility]-Influenza Vaccine (#1) 2025 [facility]-Hepatitis A Vaccines Aged Out 019, 04/24/2018 No longer eligible based on patient's age to complete this topic [facility]-Zoster Vaccines Completed 11/24/2020, 03/27/2020 HPV Vaccines Aged Out No longer eligi ble based on patient's age to complete this topic [facility]-HIB Vaccines Aged Out No longer e ligible based on patient's age to complete this topic [facility]-IPV Vaccines Aged Out No longer e ligible based on patient's age to complete this topic [facility]-Rotavirus Vaccines Aged Out No lo nger eligible based on patient's age to complete this topic Procedures Procedure Name Priority Date/Time Associated Diagnosis Comments CYTO DATA CONVERSION Routine 05/22/2016 12:00 AM EST from Last 3 Months or Most Recently Relevant to Health Maintenance Results * Cytology (05/22/2016 12:00 AM EST) 05/22/2016 05/23/2016 9:0 3 AM EST Narrative SUNQUEST - 05/30/2016 1:27 PM EST [facility] MR #: [id number] [facility] [address] [place], [place] [address] 1970 (Age: 45) FW Collect Date: 05/22/2016 00:00 Receipt Date: 05/23/2016 09:03 Page 1 DEPARTMENT OF PATHOLOGY AND LABORATORY MEDICINE CYTOPATHOLOGY REPORT Email: [email or web address] [email or web address] ATTENDING MD/Practitioner: Birdie Nieto MD. Service: OBE Location: [facility] Reported: 05/30/2016 13:27 Collected: 05/22/2016 00:00 INTERPRETATION A. THIN PREP (CERVICAL/VAGINAL): NEGATIVE FOR INTRAEPITHELIAL LESION OR MALIGNANCY. SATISFACTORY FOR EVALUATION; ENDOCERVICAL/TRANSFORMATION ZONE COMPONENT ABSENT/INSUFFICIENT. Slide scanned and imaged by [employer] ThinPrep Imaging System with manual review of all selected shelley. Electronically Signed Out By RANI Mota (ASCP) RANI Jimenez (ASCP) RANI Mota (ASCP) Cervical cytology is a screening test primarily for squamous cancers and precursors and has associated false negative and positive results. New technologies such as liquid based sampling may decrease but will not eliminate all false negative results. Regular screening and follow-up of unexplained clinical signs and symptoms are recommended to minimize false negative results. Please see the ASCCP website (www.asccp.org) for followup recommendations. If HPV testing was requested, correlation with the results is suggested (please call Microbiology at [phone] for results). CLINICAL INFORMATION: Menstrual History: Cyclic Date of Last Menstrual Period: 05/07/2016 Other Clinical Conditions: If ASCUS and > 24 years of age, HPV/DNA testing requested. SPECIMEN DESCRIPTION: A: THIN PREP (CERVICAL/VAGINAL) THIN PREP PROCESS CELLULAR ENHANCEMENT ICD: F: A; RT IMAGE [id number] SNOMED CODES: A; [id number] In cases where a pathologist has signed out the report, the service has been rendered in part by a resident. The signing pathologist has performed and is responsible for the reported pathologic evaluation. Alfredo Nieto MD LAB PATHOLOGY ORDERABLES Final Result SUNQUEST from Last 3 Months or Most Recently Relevant to Health Maintenance Insurance THUAN Care Teams Black Oxide Operator Relationship Specialty Start Date End Date Mariano Pedraza MD [address] [place] [address] [place] [address] PCP - General 09/29/20
--- NOTE | 2025-03-27 16:53 | PC.NURSE ---
Pt is A&Ox4. Vital signs stable tolerating room air. Pt has had no complaints of SOB to me. IV abx infused per JUL. ECHO ordered. Cardiology consulted. Pt complains of back pain. PRN pain medication given per MAR. Pt resting comfortably with no further needs voiced at this time. Call light within reach.
[2025-03-27] MEDS: IBUPROFEN 400 MG TABLET PO (17:29)
[2025-03-27] MEDS: ASPIRIN EC 81MG TABLET 81 MG PO (20:39)
[2025-03-27] MEDS: PANTOPRAZOLE 40MG TABLET 40 MG PO (20:39)
[2025-03-27] MEDS: LEVALBUTEROL 1.25MG/3ML NEB 1.25 MG IH (23:44)
[2025-03-27] MEDS: IPRATROPIUM BROMIDE 0.5 MG/2.5ML SOLUTION IH (23:44)
[2025-03-28] VITALS (16 sets, daily range): BP systolic 92–122; BP diastolic 52–72; PULSE 85–112; RESP 14–18; TEMP 36.9–38.2; O2SAT 91–97; BMI 22.4
--- NOTE | 2025-03-28 04:03 | PC.NURSE ---
Pt is A&OX4 and has tolerated room air. She did complain of neck pain once and was medicated per MAR. She has ambulated independently. No complaints at this time, call light within reach.
--- NOTE | 2025-03-28 06:00 | CA_ITS ---
APPROVED REPORT EXAM: Comprehensive 2D, Doppler, and color-flow Echocardiogram [employer]: Mary Kraft CRT Ht: 5 ft 5 in Wt: 200lbs BSA: 1.98 BP: 121/61 mmHg Indications: Troponin elevation, fibromyalgia, pneumonia, smoker 2D Dimensions LA Volume 21.40 mL LA Volume Index 10.50 mL/m2 (M/F) 16-34 M-Mode Dimensions RVDd 2.57 cm (0.9-2.6) LA Diam 3.52 cm (1.9-4.0) LVDd 4.07 cm (3.5-5.7) LVDs 2.41 cm (3.5-5.7) IVSd 1.15 cm (0.6-1.1) PWd 0.67 cm (0.6-1.1) EF (Teich) 72.00% FS 40.80% EDV (Teich) 72.90 mL TAPSE 1.78 (<1.7) ESV (Teich) 20.40 mL LV Diastology E Decel Time 150 (160-240 msec) E/A Ratio 0.79 MED A' 19.00 cm/s LAT A' 9.90 cm/s Aortic Valve AO Peak GR. 7.90 mmHg Mitral Valve MV E Max Elia. 76.0 (40-130 cm/s) MV A Velocity 96.0 (40-130 cm/s) E/A Ratio 0.79 MV PHT 44.0 ms Tricuspid Valve TR P. Velocity 219.00 cm/s RAP Estimate 10.00 mmHg RVSP 29.10 mmHg Left Ventricle The left ventricle is normal size. Left ventricular systolic function is normal. The left ventricular ejection fraction is within the normal range. There is increased left ventricular wall thickness. There is normal LV segmental wall motion. The left ventricular diastolic function is normal. LVEF is 55% Right Ventricle The right ventricle is normal size. The right ventricular systolic function is normal. Atria The left atrium is mildly dilated. The right atrium is mildly dilated. There is no color Doppler evidence of interatrial shunt. Aortic Valve The aortic valve is mildly thickened. There is no hemodynamically significant aortic valvular stenosis. No aortic regurgitation is present. Mitral Valve The mitral valve is normal in structure. No evidence of mitral valve stenosis. Trace mitral regurgitation is present. Tricuspid Valve The tricuspid valve leaflets are thin and pliable. Mild tricuspid regurgitation. RVSP is 20-25 mmHg. Pulmonic Valve The pulmonary valve is grossly normal in structure. Mild pulmonic valve regurgitation is present. Great Vessels The aortic root is normal in size. IVC is normal in size and collapses >50% with inspiration. Pericardium There is no pericardial effusion. Other Information Study Quality: Fair Conclusion Normal biventricular systolic function. Mild biatrial dilation. Mild TR, mild PI. Electronically signed by : Mally Crowe MD 03/28/2025 11:50:45
[2025-03-28] MEDS: LEVALBUTEROL 1.25MG/3ML NEB 1.25 MG IH (06:39)
[2025-03-28] MEDS: IPRATROPIUM BROMIDE 0.5 MG/2.5ML SOLUTION IH (06:39)
[2025-03-28 06:53] LABS: Hematocrit 32.5 % (37.0-47.0); Hemoglobin 10.7 g/dL (12.2-16.2); Immature Granulocytes % 1.9 %; Mean Corpuscular HGB Conc 32.9 g/dL (31.8-35.4); Mean Corpuscular Hemoglobin 29.2 pg (27.0-31.2); Mean Corpuscular Volume 88.6 fl (81-99); Nucleated Red Blood Cells % 0 %; Platelet Count 150 K/mm3 (142-424); Red Blood Count 3.67 M/mm3 (4.20-5.40); Red Cell Distribution Width-SD 42.5 fL; White Blood Count 13.0 K/mm3 (4.8-10.8)
[2025-03-28 06:57] LABS: Alanine Aminotransferase 15 U/L (12-78); Albumin Level 3.4 g/dl (3.5-5.0); Albumin/Globulin Ratio 1.2 (1.1-1.8); Alkaline Phosphatase 55 U/L (38-126); Anion Gap 7.6 mEq/L (5-15); Aspartate Amino Transferase 19 U/L (14-36); Bilirubin,Total 0.4 mg/dl (0.2-1.3); Blood Urea Nitrogen 10 mg/dl (7-17); Calcium 9.0 mg/dl (8.4-10.2); Carbon Dioxide 29 mmol/L (22.0-30.0); Chloride 102 mmol/L (98-107); Creatinine Clearance Estimated 87 mL/min (50-200); Creatinine,Serum 0.70 mg/dl (0.52-1.04); Estimated Glomerular Filt Rate 87 ml/min (>60); GFR (African American) 105 ML/MIN (>60); Globulin 2.8 g/dL (1.3-3.2); Glucose 110 mg/dl (74-100); Magnesium 1.7 mg/dl (1.6-2.3); Potassium 3.6 mmoL/L (3.5-5.1); Sodium 135 mmol/L (136-145); Total Protein,Serum 6.2 g/dl (6.3-8.2)
[2025-03-28 07:44] LABS: C-Reactive Protein 251.7 mg/L (0-4)
[2025-03-28 07:58] LABS: Procalcitonin 5.23 ng/mL (0.0-2.0)
[2025-03-28] MEDS: ASPIRIN EC 81MG TABLET 81 MG PO (08:09)
[2025-03-28] MEDS: OXYCODONE 5MG IMMEDIATE RELEASE TABLET 5 MG PO (08:09)
[2025-03-28] MEDS: LEVOFLOXACIN/D5W 750 MG/150 ML 750 MG/150 ML PIGGYBACK 100 MG IV (10:38)
--- NOTE | 2025-03-28 11:02 | IR_ITS ---
APPROVED REPORT Patient Location: Inpatient PROCEDURES Left heart catheterization Left ventriculogram Selective coronary angiogram INDICATION Acute non-ST elevation myocardial infarction Informed consent was obtained prior to the procedure. COMPLICATIONS NONE Estimated Blood Loss: LESS THAN 10 ML TECHNIQUE One percent lidocaine used to anesthetize the right anterior aspect of the wrist. The right radial artery was accessed via the Seldinger technique. A 6 Spanish sheath was placed in the right radial artery. 2.5 mg of Verapamil, 800 mcg of nitroglycerin, 1mg Lidocaine and 5000 U Heparin were given through the arterial sheath. The JL3 catheter was also used to perform left heart catheterization, left ventriculogram and selective coronary angiogram. At the end of the procedure the sheath was removed good hemostasis was achieved using Traclet band, patient was transferred to the postop holding area in stable condition. ANGIOGRAPHIC RESULTS The left main artery Normal The left anterior descending artery Is approximately normal followed by a mid vessel 25 mm myocardial bridge which compresses to 30% during systole The circumflex artery Normal The right coronary artery Normal The ARELLANO ventriculogram reveals Not performed The left ventricular end-diastolic pressure Not measured IMPRESSION No evidence of atherosclerosis as described above 25 mm mid LAD myocardial bridge compressing to 30% during systole at rest PLAN 1. Evaluate with echocardiogram 2. Medical management 3. The myocardial bridge appears clinically inconsequential however confirm with echocardiogram Electronically signed by : Job Ortiz MD 03/28/2025 13:00:31
[2025-03-28] MEDS: IBUPROFEN 400 MG TABLET PO (11:20)
[2025-03-28] MEDS: HEPARIN 1,000 UNITS/500ML NS (CATH LAB) 3000 UNIT IV (12:38)
[2025-03-28] MEDS: NITROGLYCERIN 800MCG/8ML SYR (CATH LAB) 800 MCG IA (12:38)
[2025-03-28] MEDS: LIDOCAINE 1% 10ML MDV 10 ML IJ (12:38)
[2025-03-28] MEDS: HEPARIN 1,000 UNITS/ML 10ML VIAL (CATH LAB) 5000 UNIT IV (12:38)
[2025-03-28] MEDS: VERAPAMIL 2.5MG/ML 2ML VIAL 2.5 MG IV (12:38)
[2025-03-28] MEDS: 0.9 % SODIUM CHLORIDE 500 ML 25 ML IV (12:39)
[2025-03-28] MEDS: FENTANYL 100MCG/2ML VIAL 50 MCG IV (12:56)
[2025-03-28] MEDS: MIDAZOLAM HCL 1MG/ML 5ML VIAL 1 MG IV (12:56)
--- NOTE | 2025-03-28 13:27 | EXP.CARD.CON ---
History of Present Illness History of Present Illness Consult date: 03/28/25 Requesting physician: Miguel A Meier Chief complaint: weakness History of present illness: This is a 54-year-old white female who presented to the emergency department with complaints of weakness, sore throat and fevers. The patient reports that she felt pretty good on Friday other than having a mild sore throat. She states that she was babysitting her great nephew and did not really have any symptoms when she was up moving around. On Friday her said that she was very drowsy and very hard to arouse. Because she was so lethargic he decided to call EMS. she also was having fevers. The patient had recently been started on gabapentin approximately 2 weeks ago and it was felt that she was unresponsive from her polypharmacy. Upon arrival to the emergency department the patient was found to have an elevated troponin at 0.14 that went up to 0.15 and trended down to 0.06. The patient had a chest x-ray showing multifocal pneumonia and a moderate extrabiliary dilatation of the common bile duct measuring 9 mm. The patient does complain of shortness of breath. She states that this is still occurring intermittently and is associated with some pressure in the center aspect of her chest. She states that this still continues to occur intermittently since being admitted but overall she feels much better. Her weakness has improved. She denies any fever, chills, nausea, vomiting or diarrhea. [facility] Disclaimer: The information contained in this section may have been updated after the patient was seen, as this information can be updated by other users. Medical History (Updated 03/28/25 @ 13:35 by Ruby Goodwin APRN) Shortness of Breath Angina pectoris Constipation in female GERD (gastroesophageal reflux disease) Pituitary mass Chronic cough Deviated septum Hoarseness or changing voice Nasal drainage Thyroid disease Surgical History (Updated 03/17/25 @ 14:21 by JO ANN Mccray) History of ankle surgery Hx of arthroscopic knee surgery History of delivery Family History Other Family history of hypothyroidism Social History Smoking Status: Current every day smoker second hand exposure: No alcohol intake: current alcohol intake frequency: holidays/special occasions only substance use type: denies use current occupational status: other Travel in the last 8 weeks?: None household members: spouse and family housing: house current occupation: [employer] current occupational exposures/hazards: No caffeine: Yes Have you lived/traveled outside US in past 30 days?: No Contact w/someone who lives/traveled outside US past 30 days?: No Exposure to someone with infectious disease in past 14 days?: No Do you have a fever (greater than 100.4 F or 38 C)?: No Have you tested positive for COVID-19?: No Exposed to someone with COVID-19 in past 14 days?: No Do you have a sore throat?: No Do you have a cough?: No Do you have any weakness?: No Do you have any diarrhea?: No Are you experiencing any unusual bleeding?: No Do you have any muscle aches/pain?: No Do you have any abdominal pain?: No Are you experiencing loss of taste or smell?: No Review of Systems Review of Systems Review of systems:: pertinent systems reviewed and negative unless documented below Constitutional Constitutional: Reports system reviewed and no additional complaints, except as documented, Reports fatigue, Reports fever(s) and Reports weakness Eyes Eyes: Reports system reviewed and no additional complaints, except as documented ENT Ears, Nose, Mouth, and Throat: Reports system reviewed and no additional complaints, except as documented *Cardiovascular Cardiovascular: Reports system reviewed and no additional complaints, except as documented, Reports chest pain, Reports chest pain at rest, Reports chest pain with activity and Reports dyspnea *Respiratory Respiratory: Reports system reviewed and no additional complaints, except as documented and Reports dyspnea *Gastrointestinal Gastrointestinal: Reports system reviewed and no additional complaints, except as documented *Genitourinary Genitourinary: Reports system reviewed and no additional complaints, except as documented *Musculoskeletal Musculoskeletal: Reports system reviewed and no additional complaints, except as documented Integumentary/Breasts Skin/Breast: Reports system reviewed and no additional complaints, except as documented *Neurologic Neurologic: Reports system reviewed and no additional complaints, except as documented and Reports weakness Psychiatric Psychiatric: Reports system reviewed and no additional complaints, except as documented Endocrine Endocrine: Reports system reviewed and no additional complaints, except as documented and Reports fatigue Hematologic/Lymphatic Hematologic/Lymphatic: Reports system reviewed and no additional complaints, except as documented Allergic/Immunologic Allergic/Immunologic: Reports system reviewed and no additional complaints, except as documented Exam Data for Last 24 hours Vital signs and Labs for Last 24 Hours: Temp Pulse Resp BP Pulse Ox O2 Del Method O2 Flow Rate 100.8 F H 87 18 107/62 L 97 Room Air 2 03/28/25 11:15 03/28/25 12:58 03/28/25 12:58 03/28/25 12:58 03/28/25 12:58 03/28/25 12:58 03/27/25 11:48 Laboratory Results - last 24 hr 03/28/25 06:25: WBC 13.0 H, RBC 3.67 L, Hgb 10.7 L, Hct 32.5 L, MCV 88.6, MCH 29.2, MCHC 32.9, RDW 13.0, Plt Count 150, MPV 10.1, Neut % (Auto) 89.5 H, Lymph % (Auto) 4.6 L, Castro % (Auto) 3.2, Eos % (Auto) 0.5, Baso % (Auto) 0.3, Neut # (Auto) 11.7 H, Lymph # (Auto) 0.6 L, Castro # (Auto) 0.4, Eos # (Auto) 0.1, Baso # (Auto) 0.0, Sodium 135 L, Potassium 3.6, Chloride 102, Carbon Dioxide 29, Anion Gap 7.6, BUN 10, Creatinine 0.70, Estimated Creat Clear 87, Estimated GFR 87, Est GFR ( Amer) 105, Glucose 110 H, Calcium 9.0, Magnesium 1.7, Total Bilirubin 0.4, AST 19 D, ALT 15, Alkaline Phosphatase 55, C-Reactive Protein 251.7 H, Total Protein 6.2 L, Albumin 3.4 L, Globulin 2.8, Albumin/Globulin Ratio 1.2, Procalcitonin 5.23 H I & O for Last 24 hours: Intake & Output 03/25/25 03/26/25 03/27/25 03/28/25 23:59 23:59 23:59 23:59 Intake Total 2500 / 2700 1560 / 1560 350 / 350 Output Total 300 / 300 0 / 0 Balance 2500 / 2700 1260 / 1260 350 / 350 Weight 200 lb 134 lb 6.4 oz 134 lb 12.8 oz Microbiology Reports for the Last 24 Hours: Microbiology 03/26/25 09:58 Blood Blood Culture - Preliminary NO GROWTH AFTER 48 HOURS 03/26/25 09:52 Blood Blood Culture - Preliminary NO GROWTH AFTER 48 HOURS 03/26/25 10:29 Throat Group A Streptococcus Screen (TATI) - Final Negative for Group A Streptococcus. Constitutional Constitutional: no acute distress and average body habitus *Routine HEENT Exam Head: Present normocephalic and atraumatic ENT: Present mucous membranes moist *Routine Neck Exam Neck: Present supple, full ROM and normal carotid upstroke; Absent JVD, carotid bruit or lymphadenopathy *Routine Respiratory Exam Respiratory: Present CTA bilaterally, normal respiratory effort, able to speak in complete sentences and symmetric chest movement *Routine Cardiovascular Exam Cardiovascular: Present RRR, Normal S1 and Normal S2; Absent murmur or gallop *Routine Abdominal Exam Abdominal: Present soft and normoactive bowel sounds; Absent tenderness, distended or organomegaly *Routine Extremities Exam Extremities: Present full ROM, pulses intact and normal capillary refill; Absent cyanosis, clubbing or edema *Routine Skin Exam Skin: Present intact and warm; Absent erythema *Routine Neurological Exam Neurological: Present alert, oriented X3 and CN II-XII intact; Absent sensory deficit or motor deficit Routine Psychiatric Exam Psychiatric: Present normal affect Meds Home Medications and Allergies Home Medications ?Medication ?Instructions ?Recorded ?Confirmed ?Type amitriptyline 100 mg tablet 100 mg PO HS 06/14/20 03/26/25 History temazepam 15 mg capsule 15 mg PO HS 06/14/20 03/26/25 History levothyroxine 88 mcg tablet 88 mcg PO DAILY 04/03/22 03/26/25 History omeprazole 40 mg capsule,delayed 40 mg PO DAILY 10/03/22 03/26/25 History release famotidine 40 mg tablet 40 mg PO HS 10/10/22 03/26/25 History tizanidine 2 mg tablet 2 mg PO HS 10/10/22 03/26/25 History gabapentin 100 mg capsule 100 - 200 mg PO HS 03/17/25 03/26/25 History oxycodone 10 mg tablet 10 mg PO TID PRN Pain, Moderate 03/17/25 03/26/25 History estradiol 0.01% (0.1 mg/gram) 1 g vaginal HS 03/26/25 03/26/25 History vaginal cream (Estrace) New Prescriptions to Start Prescriptions: Allergies Allergy/AdvReac Type Severity Reaction Status Date / Time acetaminophen (From Midrin) AdvReac Hallucinati Verified 03/17/25 13:59 ng dichloralphenazone (From AdvReac Hallucinati Verified 03/17/25 13:59 Midrin) ng isometheptene (From Midrin) AdvReac Hallucinati Verified 03/17/25 13:59 ng Assessment and Plan *Assessment and plan (1) Acute non-ST elevation myocardial infarction (NSTEMI): Status: Acute Category: Medical Code(s): I21.4 - Non-ST elevation (NSTEMI) myocardial infarction (2) Angina pectoris: Status: Acute Category: Medical Code(s): I20.9 - Angina pectoris, unspecified (3) Shortness of Breath: Status: Acute Category: Medical Code(s): R06.02 - Shortness of breath (4) Pneumonia: Status: Acute Category: Medical Code(s): J18.9 - Pneumonia, unspecified organism (5) Polypharmacy: Status: Acute Category: Medical Code(s): Z79.899 - Other salvage determiner (current) drug therapy (6) Encephalopathy: Status: Acute Qualifiers: Encephalopathy type: unspecified encephalopathy Qualified Code(s): G93.40 - Encephalopathy, unspecified Category: Medical Code(s): G93.40 - Encephalopathy, unspecified (7) GERD (gastroesophageal reflux disease): Status: Acute Qualifiers: Esophagitis presence: esophagitis presence not specified Qualified Code(s): K21.9 - Gastro-esophageal reflux disease without esophagitis Category: Medical Code(s): K21.9 - Gastro-esophageal reflux disease without esophagitis Plan Plan: 1. The patient was admitted to the hospital for polypharmacy and pneumonia. Her gabapentin has been stopped. She is getting IV antibiotics. Will defer to the hospitalist/pulmonology. 2. The patient did have an elevated troponin consistent with a non-STEMI. She is still having intermittent shortness of breath and pressure in the center of her chest. Due to her elevated troponin consistent with a non-STEMI and angina, we will plan to proceed with left cardiac catheterization today to evaluate for coronary artery disease. 3. The patient has been educated the risk and benefits of proceeding with left cardiac catheterization. The patient verbalizes understanding and is agreeable to proceeding with the procedure. 4. The patient will be n.p.o. in preparation for left cardiac catheterization. 5. Echocardiogram shows a normal ejection fraction. 6. The patient does have an abnormal moderate extrabiliary dilatation of the common bile duct measuring 9 mm. She will need to follow-up with GI. But we will leave this up to the hospitalist. 7. Her blood pressure is well-controlled. 8. Her LDL goal is less than 100. Her LDL is 84. 9. Further recommendations will be made pending the patient's response to treatment and the results of her left cardiac catheterization today. Thank you for the opportunity to help participate in the care of this patient. All recommendations and orders are per Dr. Crowe. Addendum: Left cardiac catheterization which shows: The left main artery Normal The left anterior descending artery Is approximately normal followed by a mid vessel 25 mm myocardial bridge which compresses to 30% during systole The circumflex artery Normal The right coronary artery Normal The ARELLANO ventriculogram reveals Not performed The left ventricular end-diastolic pressure Not measured IMPRESSION No evidence of atherosclerosis as described above 25 mm mid LAD myocardial bridge compressing to 30% during systole at rest PLAN 1. Evaluate with echocardiogram 2. Medical management 3. The myocardial bridge appears clinically inconsequential however confirm with echocardiogram Echocardiogram shows normal ejection fraction. Patient symptoms are most likely all stemming from her pneumonia.
--- NOTE | 2025-03-28 15:03 | EXP.DC.SUM ---
General Admission date:: 03/26/25 HPI HPI HPI: Martine Patiño is a 54-year-old female with a medical history significant for chronic pain from cervical degenerative disc disease, herniation, neuroforaminal narrowing presents with 2 weeks of progressive weakness. Patient states she has had chronic pain from cervical disease as noted before, and has been using multimodal pain management for relief. She was recently started on gabapentin 200 mg nightly 2 weeks ago, after which patient states she has felt more more weak, drowsy. Over the past few days, patient also endorses sore throat and even worsened drowsiness with fevers. Her family member had a difficult time waking her up this morning. Denies chest pains, abdominal pain, constipation/diarrhea. Workup in the ED significant for WBC 7.3, troponin peaking at 0.14, downtrending to 0.06, UA normal, UDS positive for opiates, full respiratory panel normal. CTA chest revealed multifocal pneumonia, and moderate extrabiliary dilatation with CBD measuring up to 9 mm. No abdominal pain noted. Patient is also requiring 2 L which is a new requirement. Given these findings, ED provider discussed case with and I decided to admit patient for acute hypoxic respiratory failure secondary to community-acquired pneumonia, sedation from polypharmacy. Hospital Course Hospital Course Hospital Course: Martine Patiño is a 54-year-old female with a medical history significant for chronic pain from cervical degenerative disc disease, herniation, neuroforaminal narrowing presents with 2 weeks of progressive weakness. Patient states she has had chronic pain from cervical disease as noted before, and has been using multimodal pain management for relief. She was recently started on gabapentin 200 mg nightly 2 weeks ago, after which patient states she has felt more more weak, drowsy. Over the past few days, patient also endorses sore throat and even worsened drowsiness with fevers. Her family member had a difficult time waking her up this morning. Denies chest pains, abdominal pain, constipation/diarrhea. Workup in the ED significant for WBC 7.3, troponin peaking at 0.14, downtrending to 0.06, UA normal, UDS positive for opiates, full respiratory panel normal. CTA chest revealed multifocal pneumonia, and moderate extrabiliary dilatation with CBD measuring up to 9 mm. No abdominal pain noted. Patient is also requiring 2 L which is a new requirement. Given these findings, ED provider discussed case with me and I decided to admit patient for acute hypoxic respiratory failure secondary to community-acquired pneumonia, sedation from polypharmacy. #Acute hypoxic respiratory failure #Community-acquired pneumonia, possible aspiration #Sepsis ? Presented with several days of worsening weakness, sore throat. CTA chest shows multifocal pneumonia, fever as high as 103.4 here, though WBC normal and no signs of sepsis. ? Full respiratory panel and strep screen normal. ? Sore throat, multifocal pneumonia could very well be from aspiration from oversedation due to multiple sedative medications. See below. ? Met sepsis criteria with tachycardia, leukocytosis, fever. ? Clinically improved with IV levofloxacin, holding sedative medications. Transiently required 2 L nasal cannula, weaned to room air on day of discharge. ? WBC improved to 13.0, peaked at 16.5, though in the setting of steroids. CRP and procalcitonin quite elevated during hospital course, downtrending on day of discharge. ? Today, patient states she feels better than admission. Breathing easier, no fevers. Ambulating without assistance. ? Discharged with levofloxacin 750 mg daily for 5 more days. Will follow-up with Dr. Bucio on Friday. #Chronic pain #Cervical degenerative disc disease, herniation, neuroforaminal narrowing #Acute metabolic encephalopathy #Polypharmacy ? Unfortunately, patient has dealt with chronic cervical pain requiring multimodal pain management. ? Due to insufficiency, gabapentin 200 mg nightly was started recently about 2 weeks ago. Since then, patient states she is been more drowsy. ? Patient currently takes amitriptyline, gabapentin, oxycodone, temazepam, tizanidine. Restarted oxycodone at a lower dose of 5 mg every 8 hours as needed, will discontinue gabapentin. ? Discussed with Dr. Bucio will follow-up with patient on Friday. #NSTEMI type II ? Presented with weakness, troponin peaked at 0.15 and downtrending to 0.06. EKG without acute ischemic changes denies chest pain, shortness of breath. ? In the setting of community-acquired pneumonia, hypoxic respiratory failure. ? Cardiology consulted, s/p LHC revealing 25 mm mid LAD myocardial bridge compressing to 30% during systole at rest which Dr. Ortiz advised was inconsequential. ECHO without wall motion abnormalities, preserved EF. #GERD ? Continue PPI. #Hypothyroidism #Euthyroid sick syndrome ? Continue home levothyroxine 88 mcg. TSH low 0.26 in the setting of sepsis, free T4 normal. Follow-up outpatient TFTs once more stable. Total time spent on discharge: 36 minutes on chart review, counseling, documentation, and direct care with patient. Exam Data for Last 24 hours Vital signs and Labs for Last 24 Hours: Temp Pulse Resp BP Pulse Ox O2 Del Method O2 Flow Rate 98.5 F 90 18 111/67 93 L Room Air 2 03/28/25 14:45 03/28/25 14:45 03/28/25 14:45 03/28/25 14:45 03/28/25 14:45 03/28/25 14:45 03/27/25 11:48 Laboratory Results - last 24 hr 03/28/25 06:25: WBC 13.0 H, RBC 3.67 L, Hgb 10.7 L, Hct 32.5 L, MCV 88.6, MCH 29.2, MCHC 32.9, RDW 13.0, Plt Count 150, MPV 10.1, Neut % (Auto) 89.5 H, Lymph % (Auto) 4.6 L, [place] % (Auto) 3.2, Eos % (Auto) 0.5, Baso % (Auto) 0.3, Neut # (Auto) 11.7 H, Lymph # (Auto) 0.6 L, [place] # (Auto) 0.4, Eos # (Auto) 0.1, Baso # (Auto) 0.0, Sodium 135 L, Potassium 3.6, Chloride 102, Carbon Dioxide 29, Anion Gap 7.6, BUN 10, Creatinine 0.70, Estimated Creat Clear 87, Estimated GFR 87, Est GFR ( Amer) 105, Glucose 110 H, Calcium 9.0, Magnesium 1.7, Total Bilirubin 0.4, AST 19 D, ALT 15, Alkaline Phosphatase 55, C-Reactive Protein 251.7 H, Total Protein 6.2 L, Albumin 3.4 L, Globulin 2.8, Albumin/Globulin Ratio 1.2, Procalcitonin 5.23 H I & O for Last 24 hours: Intake & Output 03/25/25 03/26/25 03/27/25 03/28/25 23:59 23:59 23:59 23:59 Intake Total 2500 / 2700 1560 / 1560 350 / 350 Output Total 300 / 300 0 / 0 Balance 2500 / 2700 1260 / 1260 350 / 350 Weight 90.718 kg 60.963 kg 61.144 kg Microbiology Reports for the Last 24 Hours: Microbiology 03/26/25 09:58 Blood Blood Culture - Preliminary NO GROWTH AFTER 48 HOURS 03/26/25 09:52 Blood Blood Culture - Preliminary NO GROWTH AFTER 48 HOURS 03/26/25 10:29 Throat Group A Streptococcus Screen (TATI) - Final Negative for Group A Streptococcus. Constitutional Constitutional: no acute distress *Routine HEENT Exam Head: Present normocephalic Eye: Present EOMI and PERRL ENT: Present mucous membranes moist *Routine Neck Exam Neck: Present supple; Absent lymphadenopathy *Routine Respiratory Exam Respiratory: Present CTA bilaterally *Routine Cardiovascular Exam Cardiovascular: Present RRR *Routine Abdominal Exam Abdominal: Present soft and normoactive bowel sounds; Absent tenderness *Routine Extremities Exam Extremities: Absent cyanosis, clubbing or edema *Routine Skin Exam Skin: Present warm; Absent rash *Routine Neurological Exam Neurological: Present alert and oriented X3 Results Data Completed and Pending Labs on day of discharge: Labs from last 24 hours 03/28/25 06:25 WBC 13.0 H RBC 3.67 L Hgb 10.7 L Hct 32.5 L MCV 88.6 MCH 29.2 MCHC 32.9 RDW 13.0 Plt Count 150 MPV 10.1 Neut % (Auto) 89.5 H Lymph % (Auto) 4.6 L [place] % (Auto) 3.2 Eos % (Auto) 0.5 Baso % (Auto) 0.3 Neut # (Auto) 11.7 H Lymph # (Auto) 0.6 L [place] # (Auto) 0.4 Eos # (Auto) 0.1 Baso # (Auto) 0.0 Sodium 135 L Potassium 3.6 Chloride 102 Carbon Dioxide 29 Anion Gap 7.6 BUN 10 Creatinine 0.70 Estimated Creat Clear 87 Estimated GFR 87 Est GFR ( Amer) 105 Glucose 110 H Calcium 9.0 Magnesium 1.7 Total Bilirubin 0.4 AST 19 D ALT 15 Alkaline Phosphatase 55 C-Reactive Protein 251.7 H Total Protein 6.2 L Albumin 3.4 L Globulin 2.8 Albumin/Globulin Ratio 1.2 Procalcitonin 5.23 H Preliminary micro results at discharge 03/26/25 09:58 Blood Culture - Preliminary Blood NO GROWTH AFTER 48 HOURS 03/26/25 09:52 Blood Culture - Preliminary Blood NO GROWTH AFTER 48 HOURS DS: Diagnosis Discharge Diagnosis (1) Acute non-ST elevation myocardial infarction (NSTEMI): Status: Acute Code(s): I21.4 - Non-ST elevation (NSTEMI) myocardial infarction (2) Angina pectoris: Status: Acute Code(s): I20.9 - Angina pectoris, unspecified (3) Shortness of Breath: Status: Acute Code(s): R06.02 - Shortness of breath (4) Pneumonia: Status: Acute Code(s): J18.9 - Pneumonia, unspecified organism (5) Polypharmacy: Status: Acute Code(s): Z79.899 - 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 therapy (6) Encephalopathy: Status: Acute Code(s): G93.40 - Encephalopathy, unspecified Qualifiers: Encephalopathy type: unspecified encephalopathy Qualified Code(s): G93.40 - Encephalopathy, unspecified (7) GERD (gastroesophageal reflux disease): Status: Acute Code(s): K21.9 - Gastro-esophageal reflux disease without esophagitis Qualifiers: Esophagitis presence: esophagitis presence not specified Qualified Code(s): K21.9 - Gastro-esophageal reflux disease without esophagitis Meds Home Medications and Allergies Home Medications ?Medication ?Instructions ?Recorded ?Confirmed ?Type amitriptyline 100 mg tablet 100 mg PO HS 06/14/20 03/26/25 History temazepam 15 mg capsule 15 mg PO HS 06/14/20 03/26/25 History levothyroxine 88 mcg tablet 88 mcg PO DAILY 04/03/22 03/26/25 History omeprazole 40 mg capsule,delayed 40 mg PO DAILY 10/03/22 03/26/25 History release famotidine 40 mg tablet 40 mg PO HS 10/10/22 03/26/25 History tizanidine 2 mg tablet 2 mg PO HS 10/10/22 03/26/25 History estradiol 0.01% (0.1 mg/gram) 1 g vaginal HS 03/26/25 03/26/25 History vaginal cream (Estrace) levofloxacin 750 mg tablet 750 mg PO DAILY 5 days #5 tabs 03/28/25 Rx oxycodone 10 mg tablet 5 mg (1/2 x 10 mg) PO TID PRN 03/28/25 03/26/25 Rx Pain, Moderate 30 days #0 tabs New Prescriptions to Start Prescriptions: levoMiguel A Park Allergies Allergy/AdvReac Type Severity Reaction Status Date / Time acetaminophen (From Midrin) AdvReac Hallucinati Verified 03/17/25 13:59 ng dichloralphenazone (From AdvReac Hallucinati Verified 03/17/25 13:59 Midrin) ng isometheptene (From Midrin) AdvReac Hallucinati Verified 03/17/25 13:59 ng Discharge Plan Disposition Patient Disposition: Home, Self-Care Condition: Fair Discharge Order Discharge Orders: Discharge Order (Routine); Ordered 03/28/25 Ordered By: Miguel A Meier Follow up Plan Follow up with: Mariano Pedraza MD [Primary Care Provider, Internal Medicine] - 03/30/25 4:30 pm Referral Note: Call for time Prescriptions/Medication Reconciliation: New levofloxacin 750 mg tablet 750 mg PO DAILY 5 Days Qty: 5 0RF Continued temazepam 15 mg capsule 15 mg PO HS amitriptyline 100 mg tablet 100 mg PO HS levothyroxine 88 mcg tablet 88 mcg PO DAILY Patient Comments: TAKE ONE TABLET BY MOUTH EVERY DAY famotidine 40 mg tablet 40 mg PO HS Patient Comments: TAKE ONE TABLET BY MOUTH EVERY NIGHT AT BEDTIME tizanidine 2 mg tablet 2 mg PO HS Patient Comments: TAKE TWO TABLETS BY MOUTH EVERY DAY AT BEDTIME MAY CAUSE DROWSINESS omeprazole 40 mg capsule,delayed release(DR/EC) 40 mg PO DAILY estradiol [Estrace] 0.01 % (0.1 mg/gram) cream 1 g vaginal HS Rx Instructions: Use blueberry size amount every night for 2 weeks. Then, use blueberry size amount twice weekly. Throw away applicator after single use. Changed oxycodone 10 mg tablet 5 mg PO TID PRN (Reason: Pain, Moderate) 30 Days Qty: 0 0RF Patient Comments: TAKE ONE TABLET BY MOUTH THREE TIMES DAILY MAY CAUSE DROWSINESS Discontinued gabapentin 100 mg capsule 100 - 200 mg PO HS Patient Comments: TAKE 1 TO 2 CAPSULE(S) BY MOUTH EVERY EVENING MAY CAUSE DROWSINESS Problem Reconciliation Problems Reviewed?: Yes Patient Discharge Instructions Patient Instructions: DI for Pneumonia in Adults, DI for Encephalopathy, Stop Light Pneumonia, Stop Light Infection Print Language: [place] Providers Primary Care Provider: Mariano Pedraza Admit Provider: Miguel A Meier Attending Provider: Miguel A Meier
[2025-03-28] MEDS: IOPAMIDOL-370 (76%);100ML BOTTLE 40 ML IV (15:08)
--- NOTE | 2025-03-30 10:24 | SW/DCPLANNER ---
Spoke with patient on the phone. Patient stated that she is weak but doing good. Patient stated that she is aware of her upcoming appointment. Patient stated that she was able to get her new medicine brought to her room before she was discharged. Patient stated that she has no concerns or questions at this time. Jonah Rodriguez
== END 2025-03-28 17:12 | disposition home or self-care (01) | DRG 871 ==
LOC: ER 14:04 → 2ND 15:07
PROVIDERS: Internal Medicine; Admitting Provider Student in an Organized Health Care Education/Training Program; Emergency Provider Emergency Medicine; PCP Internal Medicine Adolescent Medicine; Visit Provider Student in an Organized Health Care Education/Training Program
PROC: 4A023N7 Measurement of Cardiac Sampling and Pressure, Left Heart, Percutaneous Approach (ICD-10-PCS; CPT 93452; principal; 2025-03-28 13:30)
DX: A41.9 Sepsis, unspecified organism (principal); G92.8 Other toxic encephalopathy; J69.0 Pneumonitis due to inhalation of food and vomit; J96.01 Acute respiratory failure with hypoxia; I21.A1 Myocardial infarction type 2; G89.29 Other chronic pain; M50.30 Other cervical disc degeneration, unspecified cervical region; M48.02 Spinal stenosis, cervical region; K21.9 Gastro-esophageal reflux disease without esophagitis; E03.9 Hypothyroidism, unspecified; E07.81 Sick-euthyroid syndrome; F17.200 Nicotine dependence, unspecified, uncomplicated; T42.6X5A Adverse effect of other antiepileptic and sedative-hypnotic drugs, initial encounter; R40.0 Somnolence; Z88.6 Allergy status to analgesic agent; Z88.8 Allergy status to other drugs, medicaments and biological substances; Z79.890 Hormone replacement therapy; Z79.899 Other long term (current) drug therapy
CPT/HCPCS: 0223U; 36415; 70450; 70496; 70498; 71045; 71275; 80053; 80061; 80307; 80320; 81001; 82140; 82803; 83735; 84145; 84439; 84443; 84484; 85007; 85025; 85610; 85730; 86140; 86803; 87040; 87389; 87430; 87636; 89220; 93005; 93306; 94640; 94761; 99152; 99153; 99285; C1725; C1769; J0131; J0456; J0696; J1200; J1644; J1650; J1956; J2003; J2250; J2405; J2919; J3010; J3375; J7040; J7050; J7120; J7614; Q9967

== ENCOUNTER 2025-04-09 11:03 | Inpatient (IN) | payer OTHER, SELFPAY ==
[2025-04-09] VITALS (20 sets, daily range): BP systolic 74–115; BP diastolic 53–85; PULSE 70–108; RESP 14–17; TEMP 36.8–37; O2SAT 94–100; BMI 24.7
--- NOTE | 2025-04-09 11:18 | CT_ITS ---
PROCEDURE INFORMATION: Exam: CTA Chest With Contrast Exam date and time: 04/09/2025 12:05 PM Age: 54 years old Clinical indication: Other: Recent pna, left chest pain/sob TECHNIQUE: Imaging protocol: Computed tomographic angiography of the chest with contrast. Exam focused on the arteries. 3D rendering (Not supervised by radiologist): MIP and/or 3D reconstructed images were created by the technologist. Radiation optimization: All CT scans at this facility use at least one of these dose optimization techniques: automated exposure control; mA and/or kV adjustment per patient size (includes targeted exams where dose is matched to clinical indication); or iterative reconstruction. Contrast material: ISO 370; Contrast volume: 70 ml; Contrast route: INTRAVENOUS (IV); COMPARISON: CT ANGIO CHEST PE PROTOCOL 03/26/2025 10:59 AM FINDINGS: Pulmonary arteries: Main pulmonary artery is not dilated. There are no filling defects in the branches of the pulmonary arteries. Aorta: There is left aortic arch. Lungs: There are scattered airspace opacities in the lungs. Pleural spaces: There is no pneumothorax. There is trace left pleural effusion. Heart: There is no cardiomegaly. There is trace pericardial fluid. Lymph nodes: Unremarkable. No enlarged lymph nodes. Bones/joints: The osseous structures demonstrate no abnormalities. Soft tissues: Unremarkable. IMPRESSION: 1. No evidence of pulmonary embolism. 2. Scattered airspace opacities in the lungs, which may be related to pneumonia versus etiologies like hypersensitivity pneumonitis. Trace left pleural effusion. Some of the airspace opacities appear more prominent in comparison to previous study.
--- NOTE | 2025-04-09 11:18 | ECG_ITS ---
APPROVED REPORT Exam: Resting ECG HR:95 bpm ECG Measurements Heart Rate 95 AXES AR 152 P 65 QRSd 87 QRS 72 QT 358 T 70 QTc 411 Conclusion SINUS RHYTHM LOW QRS VOLTAGE IN PRECORDIAL LEADS [QRS DEFLECTION < 1.0 mV IN CHEST LEADS] BORDERLINE ECG UNCONFIRMED REPORT Normal sinus rhythm. No ST elevation or depression. QTc 411 Electronically signed by : MONROE GOMEZ, 04/09/2025 15:27:47
--- NOTE | 2025-04-09 11:22 | ED_ITS ---
Discharge Plan Disposition Patient Disposition: Admitted Prescriptions Prescriptions: No Action temazepam 15 mg capsule 15 mg PO HS amitriptyline 100 mg tablet 100 mg PO HS levothyroxine 88 mcg tablet 88 mcg PO DAILY Patient Comments: TAKE ONE TABLET BY MOUTH EVERY DAY famotidine 40 mg tablet 40 mg PO HS Patient Comments: TAKE ONE TABLET BY MOUTH EVERY NIGHT AT BEDTIME tizanidine 2 mg tablet 2 mg PO HS Patient Comments: TAKE TWO TABLETS BY MOUTH EVERY DAY AT BEDTIME MAY CAUSE DROWSINESS omeprazole 40 mg capsule,delayed release(DR/EC) 40 mg PO DAILY estradiol [Estrace] 0.01 % (0.1 mg/gram) cream 1 g vaginal HS Rx Instructions: Use blueberry size amount every night for 2 weeks. Then, use blueberry size amount twice weekly. Throw away applicator after single use. levofloxacin 750 mg tablet 750 mg PO DAILY 5 Days Qty: 5 0RF oxycodone 10 mg tablet 5 mg PO TID PRN (Reason: Pain, Moderate) 30 Days Qty: 0 0RF Patient Comments: TAKE ONE TABLET BY MOUTH THREE TIMES DAILY MAY CAUSE DROWSINESS Clinical Impressions Clinical Impression: Multifocal pneumonia Print Language Print Language: Setswana Discharge ED Provider: Natanael Brooke General Chief Complaint: Chest Pain Stated Complaint: soa Time Seen by Provider: 04/09/25 11:08 History of Present Illness HPI narrative: Martine Patiño is a 54-year-old female with past medical history of fibromyalgia, GERD who presents to the emergency department for complaints of shortness of breath and left-sided chest pain. Patient states that she was recently admitted for pneumonia and was discharged earlier this week. She had began improving and then on Friday, she started having worsening left-sided chest pain that is worse with deep breathing. She has not had a significant cough. She denies any fevers. She has not tried any medications at home. She was seen at her PCP office today who sent her to the emergency department for concern for PE versus recurrent pneumonia. Related Data Home Medications ?Medication ?Instructions ?Recorded ?Confirmed amitriptyline 100 mg tablet 100 mg PO HS 06/14/2001/10 temazepam 15 mg capsule 15 mg PO HS 06/14/20 5 levothyroxine 88 mcg tablet 88 mcg PO DAILY 04/03/22 1 05/26/24 omeprazole 40 mg capsule,delayed 40 mg PO DAILY 03/26/25 release famotidine 40 mg tablet 40 mg PO HS 10/10/22 tizanidine 2 mg tablet 2 mg PO HS 10/10/22 03/26/25 estradiol 0.01% (0.1 mg/gram) 1 g vaginal HS 03/26/25 03/26/25 vaginal cream (Estrace) Previous Rx's ?Medication ?Instructions ?Recorded levofloxacin 750 mg tablet 750 mg PO DAILY 5 days #5 t abs 03/28/25 oxycodone 10 mg tablet 5 mg (1/2 x 10 mg) PO TID OR N 03/28/25 Pain, Moderate 30 days #0 tabs Allergies Allergy/AdvReac Type Severity Reaction Status Date / Time acetaminophen (From Midrin) AdvReac Hallucinati Verified 03/17/25 13:59 ng dichloralphenazone (From AdvReac Hallucinati Verified 03/17/25 13:59 Midrin) ng isometheptene (From Midrin) AdvReac Hallucinati Verified 03/17/25 13:59 [facility] Disclaimer: The information contained in this section may have been updated after the patient was seen, as this information can be updated by other users. Medical History (Updated 04/09/25 @ 14:51 by Natanael Brooke MD) Shortness of Breath Angina pectoris Constipation in female GERD (gastroesophageal reflux disease) Pituitary mass Chronic cough Deviated septum Hoarseness or changing voice Nasal drainage Thyroid disease Surgical History (Updated 03/17/25 @ 14:21 by JO ANN Mccray) History of ankle surgery Hx of arthroscopic knee surgery History of delivery Family History Other Family history of hypothyroidism Social History Smoking Status: Never smoker second hand exposure: No alcohol intake: current alcohol intake frequency: holidays/special occasions only substance use type: denies use current occupational status: other Travel in the last 8 weeks?: None household members: spouse and family housing: house current occupation: [employer] current occupational exposures/hazards: No caffeine: Yes Have you lived/traveled outside US in past 30 days?: No Contact w/someone who lives/traveled outside US past 30 days?: No Exposure to someone with infectious disease in past 14 days?: No Do you have a fever (greater than 100.4 F or 38 C)?: No Have you tested positive for COVID-19?: No Exposed to someone with COVID-19 in past 14 days?: No Do you have a sore throat?: No Do you have a cough?: No Do you have any weakness?: No Do you have any diarrhea?: No Are you experiencing any unusual bleeding?: No Do you have any muscle aches/pain?: No Do you have any abdominal pain?: No Are you experiencing loss of taste or smell?: No Other Medical History Have you received the Flu Vaccine for this season: No Have you received the Pneumonia Vaccine: No ROS Obtained: Yes Systems reviewed as appropriate & no additional complaints except as documented Physical Exam General General appearance: alert and in no apparent distress Comment: appears uncomfortable, holding left chest Head Head exam: atraumatic Eye Eye exam: Present normal appearance ENT ENT exam: Present normal external ear exam Neck Neck exam: Present full ROM Chest Chest inspection: Present symmetric chest wall rise and tenderness (left anterolateral chest wall tenderness) Respiratory Respiratory exam: Absent respiratory distress, wheezes or stridor Cardiovascular Cardiovascular exam: Present regular rate and normal rhythm Abdominal Exam Abdominal exam: Present soft; Absent tenderness or guarding Extremities Exam Extremities exam: Present normal inspection Back Exam Back exam: Present normal inspection Neurological Exam Neurological exam: Present alert and oriented X3 Psychiatric Psychiatric exam: Present normal affect Skin Skin exam: Present warm and dry HEART Score HEART Score HEART Score assessment performed?: Yes HEART Score: 2 Critical Care Critical Care Time Critical Care Time: No Medical Decision Making Blayne Inquiry Pt receiving controlled substance: No Vital Signs Vital Signs: 04/09/25 11:15 04/09/25 11:16 04/09/25 11:30 Temperature 98.6 F Temperature Source Oral Pulse Rate 108 H 92 H Pulse Rate [Right Radial] 70 Respiratory Rate 14 Blood Pressure 108/85 L 101/77 L Blood Pressure [Right Arm] 107/85 L Blood Pressure Mean [Right Arm] 92 Blood Pressure Source [Right Arm] Automatic Cuff Blood Pressure Position [Right Arm] Sitting 02 Sat by Pulse Oximetry 99 99 97 Oxygen Delivery Method Room Air Room Air Room Air 04/09/25 11:45 04/09/25 12:15 04/09/25 12:30 Temperature Temperature Source Pulse Rate 88 82 81 Pulse Rate [Right Radial] Respiratory Rate Blood Pressure 96/66 L 110/68 103/68 L Blood Pressure [Right Arm] Blood Pressure Mean [Right Arm] Blood Pressure Source [Right Arm] Blood Pressure Position [Right Arm] 02 Sat by Pulse Oximetry 95 95 95 Oxygen Delivery Method Room Air Room Air Room Air 04/09/25 12:45 04/09/25 13:00 04/09/25 13:15 Temperature Temperature Source Pulse Rate 80 81 79 Pulse Rate [Right Radial] Respiratory Rate Blood Pressure 98/68 L 109/71 L 100/68 L Blood Pressure [Right Arm] Blood Pressure Mean [Right Arm] Blood Pressure Source [Right Arm] Blood Pressure Position [Right Arm] 02 Sat by Pulse Oximetry 97 97 99 Oxygen Delivery Method Room Air Room Air Room Air 04/09/25 13:29 04/09/25 13:45 04/09/25 14:01 Temperature Temperature Source Pulse Rate 88 84 82 Pulse Rate [Right Radial] Respiratory Rate Blood Pressure 112/78 102/70 L 74/53 L Blood Pressure [Right Arm] Blood Pressure Mean [Right Arm] Blood Pressure Source [Right Arm] Blood Pressure Position [Right Arm] 02 Sat by Pulse Oximetry 99 98 100 Oxygen Delivery Method Room Air Room Air Room Air 04/09/25 14:10 Temperature Temperature Source Pulse Rate 83 Pulse Rate [Right Radial] Respiratory Rate Blood Pressure 97/68 L Blood Pressure [Right Arm] Blood Pressure Mean [Right Arm] Blood Pressure Source [Right Arm] Blood Pressure Position [Right Arm] 02 Sat by Pulse Oximetry 99 Oxygen Delivery Method Room Air Lab Data Labs: Lab Results 04/09/25 11:15: WBC 7.5, RBC 4.83, Hgb 14.0, Hct 42.9, MCV 88.8, MCH 29.0, MCHC 32.6, RDW 13.2, Plt Count 498 H, MPV 8.7, Neut % (Auto) 66.3, Lymph % (Auto) 27.5, [place] % (Auto) 5.2, Eos % (Auto) 0.0 L, Baso % (Auto) 0.5, Neut # (Auto) 4.9, Lymph # (Auto) 2.1, [place] # (Auto) 0.4, Eos # (Auto) 0.0, Baso # (Auto) 0.0, Sodium 137, Potassium 4.1, Chloride 100, Carbon Dioxide 27, Anion Gap 14.1, BUN 7, Creatinine 0.90, Estimated Creat Clear 65, Estimated GFR 65, Est GFR ( Amer) 78, Glucose 94, Lactate 2.3 H, Calcium 9.7, Total Bilirubin 0.4, AST 31, ALT 19, Alkaline Phosphatase 75, Troponin I < 0.01, C-Reactive Protein 4.3 H, N T-Pro-B Natriuret Pep 269 H, Total Protein 7.9 D, Albumin 4.8, Globulin 3.1, Albumin/Globulin Ratio 1.5 04/09/25 11:38: VBG pH 7.43 H, VBG pCO2 42.7, VBG pO2 30.7, VBG HCO3 27.5, VBG Total CO2 28.8 H, VBG O2 Saturation 58.8, VBG Base Excess 3.2 H, VBG Lactic Acid 2.9 H 04/09/25 13:59: Troponin I < 0.01 04/09/25 11:15 04/09/25 11:15 Response Orders (Tests/Meds): ED MEDICATIONS Generic Name Dose Route Start Last Admin Trade Name Freq PRN Reason Stop Dose Admin Azithromycin 500 mg/ Sodium 250 mls @ 250 mls/hr 04/09/25 13:45 04/09/25 14:26 Chloride IV 04/19/25 13:44 250 mls/hr Q24H DWAYNE Administration Discontinued Medications Generic Name Dose Route Start Last Admin Trade Name Freq PRN Reason Stop Dose Admin Cefepime HCl 2 gm/ Sodium 100 mls @ 200 mls/hr 04/09/25 13:34 04/09/25 14:26 Chloride IV 04/09/25 14:03 Infused ONCE ONE Infusion Iopamidol 70 ml 04/09/25 12:11 04/09/25 12:12 Iopamidol-370 (76%);100ml Bottle IV 04/09/25 12:12 70 ml ONCE ONE Administration Ketorolac Tromethamine 15 mg 04/09/25 11:18 04/09/25 11:26 Ketorolac 15mg/Ml Vial IV 04/09/25 11:19 15 mg ONCE ONE Administration Methylprednisolone Sodium Succinate 125 mg 04/09/25 13:54 04/09/25 14:19 Methylprednisolone Sod Succ 125mg Vial IV 04/09/25 13:55 125 mg ONCE ONE Administration Morphine Sulfate 4 mg 04/09/25 13:35 04/09/25 13:53 Morphine 4mg/Ml Syringe IV 04/09/25 13:36 4 mg ONCE ONE Administration Sodium Chloride 50 ml 04/09/25 12:11 04/09/25 12:13 0.9 % Sodium Chloride 50 Ml Vial IV 04/09/25 12:12 50 ml ONCE ONE Administration Sodium Chloride 10 ml 04/09/25 12:11 04/09/25 12:12 Sodium Chloride 0.9% 10ml Syr (Rad Only) IV 04/09/25 12:12 10 ml ONCE ONE Administration ORDERS Category Date Time Status CT angio chest PE protocol Stat Cat Scan 04/09/25 11:18 Completed BNP [NT Pro Brain Natriuretic Pep.] Stat Lab 04/09/25 11:15 Completed CBC w/Auto Diff [Complete Blood Count Auto Diff] Stat Lab 04/09/25 11:15 Completed CMP [Comprehensive Metabolic Panel] Stat Lab 04/09/25 11:15 Completed CRP [C-Reactive Protein] Stat Lab 04/09/25 11:15 Completed Lactic Acid Stat Lab 04/09/25 11:15 Completed Troponin I Q3H Lab 04/09/25 13:59 Completed Troponin I Q3H Lab 04/09/25 17:30 Ordered Troponin I Stat Lab 04/09/25 11:15 Completed Blood Culture Stat Micro 04/09/25 11:25 Received VBG [Venous Blood Gas] Stat RT 04/09/25 11:38 Completed ECG Data Tracing #1: Attestation: I reviewed this ECG and interpreted as documented below: ECG Narrative: Normal sinus rhythm. No ST elevation or depression. QTc 411 MDM Narrative Medical Decision Narrative: Martine Patiño is a 54-year-old female with past medical history of fibromyalgia, GERD who presents to the emergency department for complaints of shortness of breath and left-sided chest pain. Patient states that she was recently admitted for pneumonia and was discharged earlier this week. She had began improving and then on Friday, she started having worsening left-sided chest pain that is worse with deep breathing. She has not had a significant cough. She denies any fevers. She has not tried any medications at home. She was seen at her PCP office today who sent her to the emergency department for concern for PE versus recurrent pneumonia. On arrival, patient is mildly tachycardic, mildly hypotensive, maintaining appropriate oxygen saturation on room air. Physical exam, as stated above, revealed uncomfortable. Female in no significant respiratory distress. She is breathing and somewhat shallow breaths but states that this is secondary to pain in her left chest. Cardiopulmonary exam is unremarkable except for tachycardia with no murmurs or rubs. No wheezing, rales or rhonchi. Abdomen is soft, nontender nondistended. She does have tenderness to palpation over the left anterolateral chest wall. Differential diagnosis includes, but is not limited to: Pneumonia, pleurisy, pulmonary embolism, empyema, ACS, pericarditis, myocarditis, costochondritis, among others. The most morbid conditions were considered and workup was based on these. Patient's workup in the emergency room included: Troponin, BNP, CBC with differential, CMP, CRP, lactic acid, CT angio chest PE protocol, EKG, blood culture, lactate, VBG. Patient was initially treated with 15 mg of IV Toradol. Patient's workup shows improving white blood cell count of 7.5 from 13, no anemia, platelets mildly elevated at 498. VBG shows mild alkalosis with pH of 7.43, pCO2 of 42.7, bicarb 27.5. Lactate mildly elevated 2.9 on VBG but improved to 2.3 on serum lactate. Electrolytes within normal limits. No ABBEY. Liver enzymes and bilirubin within normal limits. Troponin negative x 2. CRP improving to 4.3 from 251. NT proBNP mildly elevated at 269. CT imaging was interpreted by me personally. I do not appreciate any pulmonary embolism. Patient has bilateral airspace opacities, worse at the left base, consistent with multifocal pneumonia. This does not appear much improved from patient's previous CT scan and may be more prominent in some areas. See radiology report for details. On reassessment, patient stated that she had some improvement in her pain after Toradol however it had returned and is severe at this point. Will give 4 mg of IV morphine, 125 mg of methylprednisolone. Previous records were reviewed and patient had 4-day stay in the hospital and was receiving IV Levaquin at that time. She was discharged with a 5-day course of Levaquin and had completed this according to her. Given her recurrent pneumonia with adequate outpatient treatment, I do feel that she has failed outpatient management and will require additional IV antibiotics and admission. Started patient on cefepime as well as azithromycin IV. I discussed this with patient and she is in agreement to proceed with admission given her pneumonia and degree of pain. I discussed patient's case with Dr. Meier who also spoke with Dr. Lopes and is in agreement to admit the patient for further management.
[2025-04-09] MEDS: KETOROLAC 15MG/ML VIAL 15 MG IV (11:26)
--- OUTSIDE RECORDS SUMMARY | 2025-04-09 11:34 | XMS_ITS | Clinical Summary ---
Author Organization [facility] Address [address] [place] [address] Care Team Providers Care Otr Flatbed Driver Name Role Phone Mariano Pedraza MD Primary Care Provider + [phone] Social History Tobacco Use Types Packs/Day Years [...] [facility]-Cervical Cancer Screening 05/22/2021 [facility]-HPV/Cotest 05/22/2021 05/22/2016 [id number] Vaccine ( season) 2025 04/04/2021, 08/16/2020, 07/19/2020 [...] Narrative SUNQUEST - 05/30/2016 1:27 PM EST [facility] MR #: [id number] [facility] [place], [place] [address] 1970 (Age: 45) FW Collect Date: 05/22/2016 00:00 Receipt Date: 05/23/2016 09:03 Page 1 DEPARTMENT OF PATHOLOGY AND LABORATORY MEDICINE CYTOPATHOLOGY REPORT Email: [email or web address] ATTENDING MD/Practitioner: Birdie Nieto MD. Service: OBE Location: [facility] Reported: 05/30/2016 13:27 Collected: 05/22/2016 00:00 INTERPRETATION A. THIN PREP (CERVICAL/VAGINAL): NEGATIVE FOR INTRAEPITHELIAL LESION OR MALIGNANCY. SATISFACTORY FOR EVALUATION; ENDOCERVICAL/TRANSFORMATION ZONE COMPONENT ABSENT/INSUFFICIENT. Slide scanned and imaged by [employer] ThinPrep Imaging System with manual review of [...] results is suggested (please call Microbiology at [phone] for results). CLINICAL INFORMATION: Menstrual History: Cyclic Date of Last Menstrual Period: 05/07/2016 Other Clinical Conditions: If ASCUS and > 24 years of age, HPV/DNA testing requested. SPECIMEN DESCRIPTION: A: THIN PREP (CERVICAL/VAGINAL) THIN PREP PROCESS CELLULAR ENHANCEMENT ICD: F: A; RT IMAGE [id number] SNOMED CODES: A; [id number] In cases where a pathologist has signed out the report, the service has been rendered in part by a resident. The signing pathologist has performed and is responsible for the reported pathologic evaluation. Alfredo Nieto MD LAB PATHOLOGY ORDERABLES Final Result SUNQUEST from Last 3 Months or Most Recently Relevant to Health Maintenance Insurance [employer] Care Teams Otr Flatbed Driver Relationship Specialty Start Date End Date Mariano Pedraza MD [address] [place] [address] [place] [address] PCP - General 09/29/20
--- OUTSIDE RECORDS SUMMARY | 2025-04-09 11:34 | XMS_ITS | Clinical Summary ---
Author Organization [facility] Address [address], [address] [place] [address] Care Team Providers Care Feed Manager Name Role Phone Mariano Pedraza MD Primary Care Provider [phone] Social History Tobacco Use Types Packs/Day Years Used Date Smoking Tobacco: Never Assessed Comments Unknown Sex and Gender Information Value Date Recorded Sex Assigned at Not on file Legal Sex Female 3:08 AM EST Gender Identity Not on file Sexual Orientation Not on file Plan of Treatment Not on file Insurance [facility] Care Teams Feed Manager Relationship Specialty Start Date End Date Mariano Pedraza MD [address] [place] [facility] [place] [address] [place] [id number] PCP - General Internal Medicine 10/22/18
[2025-04-09 11:43] LABS: VBG HCO3 27.5 mmol/L (23-30); VBG PCO2 42.7 mmol/L (35-51); VBG PH 7.43 mmol/L (7.31-7.41); VBG PO2 30.7 mmol/L (28-40)
[2025-04-09 11:44] LABS: Hematocrit 42.9 % (37.0-47.0); Hemoglobin 14.0 g/dL (12.2-16.2); Immature Granulocytes % 0.5 %; Mean Corpuscular HGB Conc 32.6 g/dL (31.8-35.4); Mean Corpuscular Hemoglobin 29.0 pg (27.0-31.2); Mean Corpuscular Volume 88.8 fl (81-99); Nucleated Red Blood Cells % 0 %; Platelet Count 498 K/mm3 (142-424); Red Blood Count 4.83 M/mm3 (4.20-5.40); Red Cell Distribution Width-SD 42.5 fL; White Blood Count 7.5 K/mm3 (4.8-10.8)
[2025-04-09 11:44] LABS: Lactate Venous 2.9 mmol/L (0.4-2.0)
[2025-04-09 11:50] LABS: Alanine Aminotransferase 19 U/L (12-78); Albumin Level 4.8 g/dl (3.5-5.0); Albumin/Globulin Ratio 1.5 (1.1-1.8); Alkaline Phosphatase 75 U/L (38-126); Anion Gap 14.1 mEq/L (5-15); Aspartate Amino Transferase 31 U/L (14-36); Bilirubin,Total 0.4 mg/dl (0.2-1.3); Blood Urea Nitrogen 7 mg/dl (7-17); Calcium 9.7 mg/dl (8.4-10.2); Carbon Dioxide 27 mmol/L (22.0-30.0); Chloride 100 mmol/L (98-107); Creatinine Clearance Estimated 65 mL/min (50-200); Creatinine,Serum 0.90 mg/dl (0.52-1.04); Estimated Glomerular Filt Rate 65 ml/min (>60); GFR (African American) 78 ML/MIN (>60); Globulin 3.1 g/dL (1.3-3.2); Glucose 94 mg/dl (74-100); Potassium 4.1 mmoL/L (3.5-5.1); Sodium 137 mmol/L (136-145); Total Protein,Serum 7.9 g/dl (6.3-8.2)
[2025-04-09 11:56] LABS: C-Reactive Protein 4.3 mg/L (0-4)
[2025-04-09 12:05] LABS: NT Pro Brain Natriuretic Pep. 269 pg/mL (0-125)
[2025-04-09] MEDS: SODIUM CHLORIDE 0.9% 10ML SYR (RAD ONLY) 10 ML IV (12:12)
[2025-04-09] MEDS: IOPAMIDOL-370 (76%);100ML BOTTLE 70 ML IV (12:12)
[2025-04-09] MEDS: 0.9 % SODIUM CHLORIDE 50 ML VIAL IV (12:13)
[2025-04-09 12:44] LABS: Troponin I < 0.01 ng/ml (0.00-0.034)
--- NOTE | 2025-04-09 12:45 | PC.NURSE ---
spoke with lab about troponin, was told it would be resulted in a second
[2025-04-09] MEDS: MORPHINE 4MG/ML SYRINGE 4 MG IV ×2 (13:53→20:16)
[2025-04-09] MEDS: CEFEPIME HCL 2 GM in 0.9 % SODIUM CHLORIDE 100 ML IV (13:53)
[2025-04-09] MEDS: METHYLPREDNISOLONE SOD SUCC 125MG VIAL 125 MG IV (14:19)
[2025-04-09] MEDS: AZITHROMYCIN 500 MG in 0.9 % SODIUM CHLORIDE 250 ML 250 MG IV (14:26)
[2025-04-09 14:33] LABS: Troponin I < 0.01 ng/ml (0.00-0.034)
--- NOTE | 2025-04-09 14:42 | PC.NURSE ---
call made to house for bed admission
[2025-04-09 15:44] LABS: Reflex Lactic Add Lactic Reflex
--- NOTE | 2025-04-09 15:48 | EXP.HP ---
History of Present Illness *Admission Date: 04/09/25 *Reason for visit:: Left chest wall pain *History of present illness: Martine Patiño is a 54-year-old female with a medical history significant for chronic pain from cervical degenerative disc disease, herniation, neuroforaminal narrowing presents with several day history of left-sided pleuritic pain. Patient was recently discharged from facility on 03/28/2025 for left-sided pneumonia. Patient felt better after discharge, but this week she began having left-sided pleuritic chest pain that has progressively gotten worse. She was evaluated by her PCP today who recommended she come to the ED. Workup in the ED significant for WBC 7.5, CRP 4.3, BNP 269, normal respiratory panel, CTA chest showing multifocal opacities especially prominent in the left upper lobe suggesting either pneumonia or hypersensitive pneumonitis, all more prominent compared to previous admission. Trace left pleural effusion. 4 left pleuritic chest pain she was given Toradol, morphine, Solu-Medrol with some alleviation of symptoms. I discussed findings with Dr. Lopes who recommended admission and bronchoscopy on Friday, so I decided to admit patient after discussing with ED provider. [facility] Disclaimer: The information contained in this section may have been updated after the patient was seen, as this information can be updated by other users. Medical History Shortness of Breath Angina pectoris Constipation in female GERD (gastroesophageal reflux disease) Pituitary mass Chronic cough Deviated septum Hoarseness or changing voice Nasal drainage Thyroid disease Surgical History History of ankle surgery Hx of arthroscopic knee surgery History of delivery Family History Other Family history of hypothyroidism Social History Smoking Status: Never smoker second hand exposure: No alcohol intake: current alcohol intake frequency: holidays/special occasions only substance use type: denies use current occupational status: other Travel in the last 8 weeks?: None household members: spouse and family housing: house current occupation: [employer] current occupational exposures/hazards: No caffeine: Yes Have you lived/traveled outside US in past 30 days?: No Contact w/someone who lives/traveled outside US past 30 days?: No Exposure to someone with infectious disease in past 14 days?: No Do you have a fever (greater than 100.4 F or 38 C)?: No Have you tested positive for COVID-19?: No Exposed to someone with COVID-19 in past 14 days?: No Do you have a sore throat?: No Do you have a cough?: No Do you have any weakness?: No Do you have any diarrhea?: No Are you experiencing any unusual bleeding?: No Do you have any muscle aches/pain?: No Do you have any abdominal pain?: No Are you experiencing loss of taste or smell?: No Other Medical History Have you received the Flu Vaccine for this season: No Have you received the Pneumonia Vaccine: No Meds Home Medications and Allergies Home Medications ?Medication ?Instructions ?Recorded ?Confirmed ?Type amitriptyline 100 mg tablet 100 mg PO HS 06/14/20 04/09/25 History temazepam 15 mg capsule 15 mg PO HS 06/14/20 04/09/25 History levothyroxine 88 mcg tablet 88 mcg PO DAILY 04/03/22 04/09/25 History omeprazole 40 mg capsule,delayed 40 mg PO DAILY 10/03/22 04/09/25 History release famotidine 40 mg tablet 40 mg PO HS 10/10/22 04/09/25 History tizanidine 2 mg tablet 2 mg PO HS 10/10/22 04/09/25 History oxycodone 10 mg tablet 5 mg (1/2 x 10 mg) PO TID PRN 03/28/25 04/09/25 Rx Pain, Moderate 30 days #0 tabs New Prescriptions to Start Prescriptions: Allergies Allergy/AdvReac Type Severity Reaction Status Date / Time dichloralphenazone (From AdvReac Hallucinati Verified 03/17/25 13:59 Midrin) ng isometheptene (From Midrin) AdvReac Hallucinati Verified 03/17/25 13:59 ng Exam Data for Last 24 hours Vital signs and Labs for Last 24 Hours: Temp Pulse Resp BP Pulse Ox O2 Del Method 98.4 F 84 17 111/72 96 Room Air 04/09/25 14:56 04/09/25 15:00 04/09/25 14:56 04/09/25 15:00 04/09/25 15:00 04/09/25 15:00 Laboratory Results - last 24 hr 04/09/25 11:15: WBC 7.5, RBC 4.83, Hgb 14.0, Hct 42.9, MCV 88.8, MCH 29.0, MCHC 32.6, RDW 13.2, Plt Count 498 H, MPV 8.7, Neut % (Auto) 66.3, Lymph % (Auto) 27.5, [place] % (Auto) 5.2, Eos % (Auto) 0.0 L, Baso % (Auto) 0.5, Neut # (Auto) 4.9, Lymph # (Auto) 2.1, [place] # (Auto) 0.4, Eos # (Auto) 0.0, Baso # (Auto) 0.0, Sodium 137, Potassium 4.1, Chloride 100, Carbon Dioxide 27, Anion Gap 14.1, BUN 7, Creatinine 0.90, Estimated Creat Clear 65, Estimated GFR 65, Est GFR ( Amer) 78, Glucose 94, Lactate 2.3 H, Calcium 9.7, Total Bilirubin 0.4, AST 31, ALT 19, Alkaline Phosphatase 75, Troponin I < 0.01, C-Reactive Protein 4.3 H, NT-Pro-B Natriuret Pep 269 H, Total Protein 7.9 D, Albumin 4.8, Globulin 3.1, Albumin/Globulin Ratio 1.5 04/09/25 11:38: VBG pH 7.43 H, VBG pCO2 42.7, VBG pO2 30.7, VBG HCO3 27.5, VBG Total CO2 28.8 H, VBG O2 Saturation 58.8, VBG Base Excess 3.2 H, VBG Lactic Acid 2.9 H 04/09/25 13:59: Troponin I < 0.01 I & O for Last 24 hours: Intake & Output 04/06/25 04/07/25 04/08/25 04/09/25 23:59 23:59 23:59 23:59 Intake Total 350 / 350 Balance 350 / 350 Weight 59.421 kg Constitutional Constitutional: mild distress *Routine HEENT Exam Head: Present normocephalic Eye: Present EOMI and PERRL ENT: Present mucous membranes moist *Routine Neck Exam Neck: Present supple; Absent lymphadenopathy *Routine Respiratory Exam Respiratory: Present CTA bilaterally *Routine Cardiovascular Exam Cardiovascular: Present RRR *Routine Abdominal Exam Abdominal: Present soft and normoactive bowel sounds; Absent tenderness *Routine Rectal Exam Rectal:: deferred *Routine Genitalia Exam Genitalia:: deferred *Routine Extremities Exam Extremities: Absent cyanosis, clubbing or edema *Routine Skin Exam Skin: Present warm; Absent rash *Routine Neurological Exam Neurological: Present alert and oriented X3 Assessment and Plan *Assessment and plan (1) Multifocal pneumonia: Status: Acute Category: Medical Code(s): J18.8 - Other pneumonia, unspecified organism Plan Martine Patiño is a 54-year-old female with a medical history significant for chronic pain from cervical degenerative disc disease, herniation, neuroforaminal narrowing presents with several day history of left-sided pleuritic pain. Patient was recently discharged from facility on 03/28/2025 for left-sided pneumonia. Patient felt better after discharge, but this week she began having left-sided pleuritic chest pain that has progressively gotten worse. She was evaluated by her PCP today who recommended she come to the ED. Workup in the ED significant for WBC 7.5, CRP 4.3, BNP 269, normal respiratory panel, CTA chest showing multifocal opacities especially prominent in the left upper lobe suggesting either pneumonia or hypersensitive pneumonitis, all more prominent compared to previous admission. Trace left pleural effusion. 4 left pleuritic chest pain she was given Toradol, morphine, Solu-Medrol with some alleviation of symptoms. I discussed findings with Dr. Lopes who recommended admission and bronchoscopy on Friday, so I decided to admit patient after discussing with ED provider. #Suspected hospital-acquired pneumonia versus pneumonitis versus organizing pneumonia #Left chest pain ? Presented with progressively worsening left pleuritic chest pain. On room air, WBC and CRP normal. ? CTA chest suggestive of multifocal worsening opacities especially in left upper lobe. ? Discussed with pulmonology, recommended bronchoscopy on Friday. ? Started vancomycin, Zosyn 3.375 g every 6 hours. ? Will hold off on steroids for now. ? Follow-up sputum, blood cultures. ? Follow-up morning CBC, procalcitonin, CRP. ? Tylenol, Toradol, [place], morphine for pain control. #Chronic pain #Cervical degenerative disc disease, herniation, neuroforaminal narrowing ? Continue home oxycodone 5 mg, temazepam 15 mg, tizanidine in 2 mg, amitriptyline 20 mg. #GERD ? Continue PPI. #Hypothyroidism #Euthyroid sick syndrome ? Continue home levothyroxine 88 mcg. Full code DVT prophylaxis: IPC's
[2025-04-09] MEDS: LACTATED RINGERS 1000ML 1,000 ML 50 ML IV (15:57)
[2025-04-09 16:08] LABS: Procalcitonin 0.068 ng/mL (0.0-2.0)
[2025-04-09 16:08] LABS: Adenovirus,PCR Not Detected (NotDetected); Chlamydophila Pneumoniae, PCR Not Detected (NotDetected); Coronavirus 19, PCR Not Detected (NotDetected); Coronovirus HKU1,PCR Not Detected (NotDetected); Influenza A, PCR Not Detected (NotDetected); Influenza AH1, 2009 Not Detected (NotDetected); Influenza AH1, PCR Not Detected (NotDetected); Influenza AH3,PCR Not Detected (NotDetected); Influenza B, PCR Not Detected (NotDetected); Mycoplasma Pneumoniae, PCR Not Detected (NotDetected); Parainfluenza 1, PCR Not Detected (NotDetected); Parainfluenza 2, PCR Not Detected (NotDetected); Parainfluenza 3, PCR Not Detected (NotDetected); Parainfluenza 4, PCR Not Detected (NotDetected)
--- NOTE | 2025-04-09 17:04 | PC.NURSE ---
pt resting supine in bed at this time. LR infusing @ 50ml/hr. no complaints of pain at this time. SCDS in place. abx given in ER. no needs at this time. call light within reach.
[2025-04-09] MEDS: KETOROLAC 30MG/ML VIAL 30 MG IV (18:42)
--- NOTE | 2025-04-09 20:04 | PC.NURSE ---
Phoned [facility] to Dose Vancomycin IV for Pt. JERAMIE REYEZ RN
[2025-04-09] MEDS: VANCOMYCIN/WATER FOR INJ (PEG) 1.25 GM/250 ML PIGGYBACK IV (20:17)
[2025-04-09] MEDS: PIPERACILLIN/TAZO 4.5 GM in 0.9 % SODIUM CHLORIDE 100 ML IV (22:10)
[2025-04-09] MEDS: TEMAZEPAM 15MG CAPSULE 15 MG PO (23:11)
[2025-04-10] VITALS: BP 89/57; PULSE 82; RESP 16; TEMP 36.9; O2SAT 95
[2025-04-10] MEDS: PIPERACILLIN/TAZO 4.5 GM in 0.9 % SODIUM CHLORIDE 100 ML IV ×4 (03:55→20:07)
[2025-04-10 04:00] VITALS: BP 124/70; PULSE 85; RESP 16; TEMP 36.9; O2SAT 97; BMI 25.7
[2025-04-10 06:58] LABS: Hematocrit 35.1 % (37.0-47.0); Immature Granulocytes % 0.4 %; Mean Corpuscular HGB Conc 32.5 g/dL (31.8-35.4); Mean Corpuscular Hemoglobin 29.0 pg (27.0-31.2); Mean Corpuscular Volume 89.3 fl (81-99); Nucleated Red Blood Cells % 0 %; Platelet Count 389 K/mm3 (142-424); Red Blood Count 3.93 M/mm3 (4.20-5.40); Red Cell Distribution Width-SD 43.1 fL; White Blood Count 11.4 K/mm3 (4.8-10.8)
[2025-04-10 07:08] LABS: Alanine Aminotransferase 13 U/L (12-78); Albumin Level 3.7 g/dl (3.5-5.0); Albumin/Globulin Ratio 1.5 (1.1-1.8); Alkaline Phosphatase 57 U/L (38-126); Anion Gap 9.3 mEq/L (5-15); Aspartate Amino Transferase 24 U/L (14-36); Bilirubin,Total 0.4 mg/dl (0.2-1.3); Blood Urea Nitrogen 10 mg/dl (7-17); Calcium 8.9 mg/dl (8.4-10.2); Carbon Dioxide 25 mmol/L (22.0-30.0); Chloride 105 mmol/L (98-107); Creatinine Clearance Estimated 68 mL/min (50-200); Creatinine,Serum 0.90 mg/dl (0.52-1.04); Estimated Glomerular Filt Rate 65 ml/min (>60); GFR (African American) 78 ML/MIN (>60); Globulin 2.5 g/dL (1.3-3.2); Glucose 142 mg/dl (74-100); Magnesium 2.2 mg/dl (1.6-2.3); Potassium 4.3 mmoL/L (3.5-5.1); Sodium 135 mmol/L (136-145); Total Protein,Serum 6.2 g/dl (6.3-8.2)
[2025-04-10 07:12] LABS: C-Reactive Protein 3.0 mg/L (0-4)
--- NOTE | 2025-04-10 07:17 | PC.NURSE ---
PT is alert and oientedX4, She is on room air, breathing non labored and even, Lung sound are Clear to diminished though out. She LR going at 50 ML a hour. pt Asked for her Temazepam 15 mg that she takes at home for sleep. Taz Malave placed the order. Pt has slept most of the night. Call light is with in reach and Bed wheels are lock. JERAMIE REYEZ RN
[2025-04-10 07:24] LABS: Procalcitonin 0.056 ng/mL (0.0-2.0)
[2025-04-10 07:39] LABS: Hemoglobin 11.4 g/dL (12.2-16.2)
--- NOTE | 2025-04-10 07:58 | EXP.PHA.CONS ---
Pharmacy Consult Date: 04/10/25 Time: 07:59 Referring provider: DR AGUAYO Reason for Consult:: VANCOMYCIN DOSING CONSULT Allergies Allergy/AdvReac Type Severity Reaction Status Date / Time dichloralphenazone (From AdvReac Hallucinati Verified 03/17/25 13:59 Midrin) ng isometheptene (From Midrin) AdvReac Hallucinati Verified 03/17/25 13:59 ng Home Medications ?Medication ?Instructions ?Recorded ?Confirmed ?Type amitriptyline 100 mg tablet 100 mg PO HS 06/14/20 04/09/25 History temazepam 15 mg capsule 15 mg PO HS 06/14/20 04/09/25 History levothyroxine 88 mcg tablet 88 mcg PO DAILY 04/03/22 04/09/25 History omeprazole 40 mg capsule,delayed 40 mg PO DAILY 10/03/22 04/09/25 History release famotidine 40 mg tablet 40 mg PO HS 10/10/22 04/09/25 History tizanidine 2 mg tablet 2 mg PO HS 10/10/22 04/09/25 History oxycodone 10 mg tablet 5 mg (1/2 x 10 mg) PO TID PRN 03/28/25 04/09/25 Rx Pain, Moderate 30 days #0 tabs New Prescriptions to Start Prescriptions: Height: 1.55 m Weight: 61.779 kg Laboratory Results:: Laboratory Results - last 24 hr 04/09/25 11:15: WBC 7.5, RBC 4.83, Hgb 14.0, Hct 42.9, MCV 88.8, MCH 29.0, MCHC 32.6, RDW 13.2, Plt Count 498 H, MPV 8.7, Neut % (Auto) 66.3, Lymph % (Auto) 27.5, [place] % (Auto) 5.2, Eos % (Auto) 0.0 L, Baso % (Auto) 0.5, Neut # (Auto) 4.9, Lymph # (Auto) 2.1, [place] # (Auto) 0.4, Eos # (Auto) 0.0, Baso # (Auto) 0.0, Sodium 137, Potassium 4.1, Chloride 100, Carbon Dioxide 27, Anion Gap 14.1, BUN 7, Creatinine 0.90, Estimated Creat Clear 65, Estimated GFR 65, Est GFR ( Amer) 78, Glucose 94, Lactate 2.3 H, Calcium 9.7, Total Bilirubin 0.4, AST 31, ALT 19, Alkaline Phosphatase 75, Troponin I < 0.01, C-Reactive Protein 4.3 H, NT-Pro-B Natriuret Pep 269 H, Total Protein 7.9 D, Albumin 4.8, Globulin 3.1, Albumin/Globulin Ratio 1.5, Procalcitonin 0.068 04/09/25 11:38: VBG pH 7.43 H, VBG pCO2 42.7, VBG pO2 30.7, VBG HCO3 27.5, VBG Total CO2 28.8 H, VBG O2 Saturation 58.8, VBG Base Excess 3.2 H, VBG Lactic Acid 2.9 H 04/09/25 13:59: Troponin I < 0.01 04/09/25 15:59: Chlamy pneumoniae PCR Not detected, Adenovirus (PCR) Not detected, B. pertussis DNA (PCR) Not detected, Coronavirus OC43 (PCR) Not detected, Coronavirus HKU1 (PCR) Not detected, Coronavirus 229E (PCR) Not detected, SARS-CoV-2 (PCR) Not detected, Coronavirus NL63 (PCR) Not detected, Human Metapneumovir PCR Not detected, Influenza A (H1) PCR Not detected, Influ A (H1N1/09) PCR Not detected, Influenza A (H3) PCR Not detected, Influenza Type A (PCR) Not detected, Influenza Type B (PCR) Not detected, M. pneumoniae (PCR) Not detected, Parainfluenza 1 (PCR) Not detected, Parainfluenza 2 (PCR) Not detected, Parainfluenza 3 (PCR) Not detected, Parainfluenza 4 (PCR) Not detected, RSV (PCR) Not detected, Entero/Rhino (PCR) Not detected 04/10/25 06:20: WBC 11.4 H D, RBC 3.93 L, Hgb 11.4 L D, Hct 35.1 L, MCV 89.3, MCH 29.0, MCHC 32.5, RDW 13.2, Plt Count 389, MPV 9.1, Neut % (Auto) 86.8 H, Lymph % (Auto) 10.6, [place] % (Auto) 2.0, Eos % (Auto) 0.0 L, Baso % (Auto) 0.2, Neut # (Auto) 9.9 H, Lymph # (Auto) 1.2, [place] # (Auto) 0.2, Eos # (Auto) 0.0, Baso # (Auto) 0.0, Sodium 135 L, Potassium 4.3, Chloride 105, Carbon Dioxide 25, Anion Gap 9.3, BUN 10 D, Creatinine 0.90, Estimated Creat Clear 68, Estimated GFR 65, Est GFR ( Amer) 78, Glucose 142 H D, Calcium 8.9, Magnesium 2.2, Total Bilirubin 0.4, AST 24, ALT 13 D, Alkaline Phosphatase 57, C-Reactive Protein 3.0 D, Total Protein 6.2 L, Albumin 3.7 D, Globulin 2.5, Albumin/Globulin Ratio 1.5, Procalcitonin 0.056 Medical History: Medical History (Updated 04/09/25 @ 14:51 by Natanael Brooke MD) Shortness of Breath Angina pectoris Constipation in female GERD (gastroesophageal reflux disease) Pituitary mass Chronic cough Deviated septum Hoarseness or changing voice Nasal drainage Thyroid disease Assessment and Plan Assessment and plan all Dx Assessment and Plan for all problems:: Pharmacokinetic dosing service Objective: Age: 54 yo Serum creatinine: 0.9 mg/dL Height: 61.0 Inches Weight (kg): 61.779 Diagnosis: PNEUMONIA Assessment: IBW (kg): 47.80 Dosing wt(kg): 61.779 Estimated Creatinine clearance (ml/min): 52.7 CRCL method: Cockcroft and Gault using ibw(default). Drug selected: Vancomycin Loading dose (mg): 1250 MG Vd (liters): 43.2 (factor used: 0.7 L/kg) Ronaldo (hr-1): 0.048 Half life (hrs): 14.44 CLvanco=?? 2.074 L/hr Recommended dose: 1000 mg Interval: 24 hrs Infusion time (hrs): 2.0 Predicted peak (mcg/mL): 32.3 Predicted trough (mcg/mL): 11.24 Total body weight is being used for vancomycin dosing. Recommendations: Give Vancomycin 1000 mg q 24 hrs with an expected Cpeak of 32.3 mcg/ml and an expected Ctrough of 11.24 mcg/ml TO START 04/10/25 AT 2100, PATIENT RECEIVED ONE TIME LOADING DOSE OF VANCOMYCIN 1250 MG ONCE 04/09/25 AT 20:17. AUC 0-24 /TATI Data: TATI 0.5 mcg/mL:?? AUC/TATI:? 964.3 TATI 1.0 mcg/mL:?? AUC/TATI:? 482.2 --------- TATI 1.5 mcg/mL:?? AUC/TATI:? 321.4 TATI 2.0 mcg/mL:?? AUC/TATI:? 241.1 Thank you for the consult
[2025-04-10 08:00] VITALS: BP 102/65; PULSE 63; RESP 14; TEMP 36.4; O2SAT 100
[2025-04-10] MEDS: MORPHINE 4MG/ML SYRINGE 4 MG IV (09:02)
--- NOTE | 2025-04-10 09:12 | HMH.PHAINT1 ---
Pharmacy Intervention Comments: MEDICATION RECONCILIATION COMPLETE USING EXTERNAL PHARMACY FILL HISTORY, REED REPORT, AND RECENT HOSPITAL DISCHARGE NOTE.
--- NOTE | 2025-04-10 10:53 | HMH.PHAAMS2 ---
- Antimicrobial Stewardship Review culture & sensitivity review Stewardship interventions: culture & sensitivity review Comments: BLOOD CX PENDING, SPUTUM UNCOLLECTED. TREATING SUSPECTED PNEUMONIA WITH VANCOMYCIN/ZOSYN.
[2025-04-10] MEDS: LACTATED RINGERS 1000ML 1,000 ML 50 ML IV (11:58)
[2025-04-10 12:00] VITALS: BP 88/55; PULSE 101; RESP 14; TEMP 36.6; O2SAT 97
--- OUTSIDE RECORDS SUMMARY | 2025-04-10 12:08 | XMS_ITS | Clinical Summary ---
Author Organization [facility] Address [address], [address] [place] [address] Care Team Providers Care Technical Agronomist Name Role Phone Mariano Pedraza MD Primary Care Provider [phone] Social History Tobacco Use Types Packs/Day Years Used Date Smoking Tobacco: Never Assessed Comments Unknown Sex and Gender Information Value Date Recorded Sex Assigned at Not on file Legal Sex Female 3:08 AM EST Gender Identity Not on file Sexual Orientation Not on file Plan of Treatment Not on file Insurance [facility] Care Teams Technical Agronomist Relationship Specialty Start Date End Date Mariano Pedraza MD [address] [place] [id number] PCP - General Internal Medicine 10/22/18
--- OUTSIDE RECORDS SUMMARY | 2025-04-10 12:08 | XMS_ITS | Clinical Summary ---
Author Organization [facility] Address [address] [place] [address] Care Team Providers Care Political Science Research Assistant Name Role Phone Mariano Pedraza MD Primary Care Provider + [phone] Social History Tobacco Use Types Packs/Day Years [...] [facility]-Cervical Cancer Screening 05/22/2021 [facility]-HPV/Cotest 05/22/2021 05/22/2016 [id number] Vaccine ( season) 2025 04/04/2021, 08/16/2020, 07/19/2020 [...] Narrative SUNQUEST - 05/30/2016 1:27 PM EST [facility] MR #: [id number] [facility] [address] [place], [place] [address] 1970 (Age: 45) FW Collect Date: 05/22/2016 00:00 Receipt Date: 05/23/2016 09:03 Page 1 DEPARTMENT OF PATHOLOGY AND LABORATORY MEDICINE CYTOPATHOLOGY REPORT Email: [email or web address] [phone] ATTENDING MD/Practitioner: Birdie Nieto MD. Service: OBE Location: [facility] Reported: 05/30/2016 13:27 Collected: 05/22/2016 00:00 INTERPRETATION A. THIN PREP (CERVICAL/VAGINAL): NEGATIVE FOR INTRAEPITHELIAL LESION OR MALIGNANCY. SATISFACTORY FOR EVALUATION; ENDOCERVICAL/TRANSFORMATION ZONE COMPONENT ABSENT/INSUFFICIENT. Slide scanned and imaged by [employer] ThinPrep Imaging System with manual review of [...] results is suggested (please call Microbiology at [phone] for results). CLINICAL INFORMATION: Menstrual History: Cyclic Date of Last Menstrual Period: 05/07/2016 Other Clinical Conditions: If ASCUS and > 24 years of age, HPV/DNA testing requested. SPECIMEN DESCRIPTION: A: THIN PREP (CERVICAL/VAGINAL) THIN PREP PROCESS CELLULAR ENHANCEMENT ICD: F: A; RT IMAGE [id number] SNOMED CODES: A; [id number] In cases where a pathologist has signed out the report, the service has been rendered in part by a resident. The signing pathologist has performed and is responsible for the reported pathologic evaluation. Alfredo Nieto MD LAB PATHOLOGY ORDERABLES Final Result SUNQUEST from Last 3 Months or Most Recently Relevant to Health Maintenance Insurance [employer] Care Teams Political Science Research Assistant Relationship Specialty Start Date End Date Mariano Pedraza MD [address] [place] [address] [place] [address] PCP - General 09/29/20
--- NOTE | 2025-04-10 13:58 | EXP.PN ---
Subjective *Date: 04/10/25 *Time: 13:58 Interval history: Today, patient states she is about the same as yesterday. Continues to have left-sided sharp pleuritic chest pain especially with deep breaths. Morphine seems to help, will give preference to Toradol going forward. Also started Robaxin. N.p.o. at midnight for bronchoscopy in the morning. Exam Data for Last 24 hours Vital signs and Labs for Last 24 Hours: Temp Pulse Resp BP Pulse Ox O2 Del Method 97.6 F 63 14 102/65 L 100 Room Air 04/10/25 08:00 04/10/25 08:00 04/10/25 08:00 04/10/25 08:00 04/10/25 08:00 04/10/25 13:00 Laboratory Results - last 24 hr 04/09/25 11:15: Procalcitonin 0.068 04/09/25 13:59: Troponin I < 0.01 04/09/25 15:59: Chlamy pneumoniae PCR Not detected, Adenovirus (PCR) Not detected, B. pertussis DNA (PCR) Not detected, Coronavirus OC43 (PCR) Not detected, Coronavirus HKU1 (PCR) Not detected, Coronavirus 229E (PCR) Not detected, SARS-CoV-2 (PCR) Not detected, Coronavirus NL63 (PCR) Not detected, Human Metapneumovir PCR Not detected, Influenza A (H1) PCR Not detected, Influ A (H1N1/09) PCR Not detected, Influenza A (H3) PCR Not detected, Influenza Type A (PCR) Not detected, Influenza Type B (PCR) Not detected, M. pneumoniae (PCR) Not detected, Parainfluenza 1 (PCR) Not detected, Parainfluenza 2 (PCR) Not detected, Parainfluenza 3 (PCR) Not detected, Parainfluenza 4 (PCR) Not detected, RSV (PCR) Not detected, Entero/Rhino (PCR) Not detected 04/10/25 06:20: WBC 11.4 H D, RBC 3.93 L, Hgb 11.4 L D, Hct 35.1 L, MCV 89.3, MCH 29.0, MCHC 32.5, RDW 13.2, Plt Count 389, MPV 9.1, Neut % (Auto) 86.8 H, Lymph % (Auto) 10.6, [place] % (Auto) 2.0, Eos % (Auto) 0.0 L, Baso % (Auto) 0.2, Neut # (Auto) 9.9 H, Lymph # (Auto) 1.2, [place] # (Auto) 0.2, Eos # (Auto) 0.0, Baso # (Auto) 0.0, Sodium 135 L, Potassium 4.3, Chloride 105, Carbon Dioxide 25, Anion Gap 9.3, BUN 10 D, Creatinine 0.90, Estimated Creat Clear 68, Estimated GFR 65, Est GFR ( Amer) 78, Glucose 142 H D, Calcium 8.9, Magnesium 2.2, Total Bilirubin 0.4, AST 24, ALT 13 D, Alkaline Phosphatase 57, C-Reactive Protein 3.0 D, Total Protein 6.2 L, Albumin 3.7 D, Globulin 2.5, Albumin/Globulin Ratio 1.5, Procalcitonin 0.056 I & O for Last 24 hours: Intake & Output 04/07/25 04/08/25 04/09/25 04/10/25 23:59 23:59 23:59 23:59 Intake Total 1080 / 1500 2100 / 2100 Output Total 0 / 0 0 / 0 Balance 1080 / 1500 2100 / 2100 Weight 59.421 kg 61.779 kg Microbiology Reports for the Last 24 Hours: Microbiology 04/09/25 11:25 Blood Blood Culture - Preliminary NO GROWTH AFTER 24 HOURS 04/09/25 11:15 Blood Blood Culture - Preliminary NO GROWTH AFTER 24 HOURS Constitutional Constitutional: no acute distress *Routine HEENT Exam Head: Present normocephalic Eye: Present EOMI and PERRL ENT: Present mucous membranes moist *Routine Neck Exam Neck: Present supple; Absent lymphadenopathy *Routine Respiratory Exam Respiratory: Present CTA bilaterally *Routine Cardiovascular Exam Cardiovascular: Present RRR *Routine Abdominal Exam Abdominal: Present soft and normoactive bowel sounds; Absent tenderness *Routine Extremities Exam Extremities: Absent cyanosis, clubbing or edema *Routine Skin Exam Skin: Present warm; Absent rash *Routine Neurological Exam Neurological: Present alert and oriented X3 Assessment and Plan *Assessment and plan (1) Multifocal pneumonia: Status: Acute Category: Medical Code(s): J18.8 - Other pneumonia, unspecified organism Plan Martine Patiño is a 54-year-old female with a medical history significant for chronic pain from cervical degenerative disc disease, herniation, neuroforaminal narrowing presents with several day history of left-sided pleuritic pain. Patient was recently discharged from facility on 03/28/2025 for left-sided pneumonia. Patient felt better after discharge, but this week she began having left-sided pleuritic chest pain that has progressively gotten worse. She was evaluated by her PCP today who recommended she come to the ED. Workup in the ED significant for WBC 7.5, CRP 4.3, BNP 269, normal respiratory panel, CTA chest showing multifocal opacities especially prominent in the left upper lobe suggesting either pneumonia or hypersensitive pneumonitis, all more prominent compared to previous admission. Trace left pleural effusion. 4 left pleuritic chest pain she was given Toradol, morphine, Solu-Medrol with some alleviation of symptoms. I discussed findings with Dr. Lopes who recommended admission and bronchoscopy on Friday, so I decided to admit patient after discussing with ED provider. #Suspected hospital-acquired pneumonia versus pneumonitis versus organizing pneumonia #Left chest pain ? Presented with progressively worsening left pleuritic chest pain. On room air, WBC and CRP normal. ? CTA chest suggestive of multifocal worsening opacities especially in left upper lobe. ? Discussed with pulmonology, recommended bronchoscopy on Friday. N.p.o. at midnight. ? Today, patient states she is about the same as yesterday. Continues to have left-sided sharp pleuritic chest pain especially with deep breaths. Morphine seems to help, will give preference to Toradol going forward. Also started Robaxin. ? WBC slightly up to 11.4, received steroids yesterday. CRP normal 3.0. ? Continue vancomycin, Zosyn 3.375 g every 6 hours for hap coverage. ? Will hold off on steroids for now. ? Follow-up sputum, blood cultures. ? Follow-up morning CBC, procalcitonin, CRP. ? Tylenol, Toradol, [place], morphine for pain control. #Chronic pain #Cervical degenerative disc disease, herniation, neuroforaminal narrowing ? Continue home oxycodone 5 mg, temazepam 15 mg, tizanidine in 2 mg, amitriptyline 20 mg. #GERD ? Continue PPI. #Hypothyroidism ? Continue home levothyroxine 88 mcg. Full code DVT prophylaxis: IPC's
[2025-04-10 16:00] VITALS: BP 97/60; PULSE 75; RESP 16; TEMP 36.9; O2SAT 98
[2025-04-10] MEDS: KETOROLAC 30MG/ML VIAL 30 MG IV (16:02)
[2025-04-10] MEDS: METHOCARBAMOL 500MG TABLET 500 MG PO (16:03)
[2025-04-10 20:00] VITALS: BP 105/67; PULSE 83; RESP 16; TEMP 37; O2SAT 95
[2025-04-10] MEDS: TEMAZEPAM 15MG CAPSULE 15 MG PO (20:07)
[2025-04-10] MEDS: VANCOMYCIN HCL 1,000 MG in 0.9 % SODIUM CHLORIDE 250 ML 125 MG IV (21:00)
[2025-04-11] VITALS (18 sets, daily range): BP systolic 100–137; BP diastolic 65–82; PULSE 66–84; RESP 14–20; TEMP 36.2–36.9; O2SAT 92–99; BMI 25.8
--- NOTE | 2025-04-11 | US_ITS ---
FINAL REPORT TECHNIQUE: Sonographic images of the right upper quadrant were obtained. CLINICAL HISTORY: DUCTAL DILATION SEEN ON CTA COMPARISON: None FINDINGS: PANCREAS: Unremarkable. LIVER: Homogeneous. No focal hepatic lesion. No intrahepatic biliary ductal dilatation. The portal vein is patent. GALLBLADDER: No gallstones. No gallbladder wall thickening or pericholecystic fluid. COMMON DUCT: 6 mm at the ami hepatis, borderline enlarged. RIGHT KIDNEY: The right kidney measures 8.3 cm. There is no hydronephrosis, mass, or stone. FREE FLUID: None. IMPRESSION: Borderline enlargement of the common bile duct, measuring at the ami hepatis. Consider MRCP if clinically indicated. Reviewed, Interpreted and Dictated by Luz Maria Washington MD Transcribed by Maricruz Garrido Authenticated and [facility]
[2025-04-11] MEDS: PIPERACILLIN/TAZO 4.5 GM in 0.9 % SODIUM CHLORIDE 100 ML IV ×4 (02:45→20:48)
--- NOTE | 2025-04-11 03:45 | PC.NURSE ---
Patient is pleasantly alert and oriented x4. She was observed to be resting in bed with eyes closed, respirations even and unlabored on room air, and no apparent distress throughout the majority of the night. Patient has not had any complaints such as shortness of breath, chest/rib pain, headaches, nausea, etc. thus far this shift. Oxygen saturations > 90%. She has not exhibited having a productive cough this shift; thus, a sputum sample remains uncollected. Physical assessment was performed (see nursing shift biophysical intervention) as appropriately for this shift. Scheduled medications were administered per JUL. Lactated Ringers infusing at 50 mL/hr. Patient ambulates independently in her room/to the bathroom without difficulties. SCDs in place for VTE prophylaxis. Has been NPO since midnight. Pending anticipated bronchoscopy for today, 04/11/25 (per Hardeep LANCE report, Marianne LANCE recommendations). At this time, the patient continues to rest in bed without any new needs vocalized. No acute changes noted thus far. Call light within reach.
[2025-04-11 06:27] LABS: Hematocrit 33.3 % (37.0-47.0); Hemoglobin 11.0 g/dL (12.2-16.2); Immature Granulocytes % 0.3 %; Mean Corpuscular HGB Conc 33.0 g/dL (31.8-35.4); Mean Corpuscular Hemoglobin 29.8 pg (27.0-31.2); Mean Corpuscular Volume 90.2 fl (81-99); Nucleated Red Blood Cells % 0 %; Platelet Count 307 K/mm3 (142-424); Red Blood Count 3.69 M/mm3 (4.20-5.40); Red Cell Distribution Width-SD 45.0 fL; White Blood Count 6.3 K/mm3 (4.8-10.8)
[2025-04-11 06:38] LABS: Alanine Aminotransferase 11 U/L (12-78); Albumin Level 3.1 g/dl (3.5-5.0); Albumin/Globulin Ratio 1.3 (1.1-1.8); Alkaline Phosphatase 56 U/L (38-126); Anion Gap 6.0 mEq/L (5-15); Aspartate Amino Transferase 24 U/L (14-36); Bilirubin,Total 0.2 mg/dl (0.2-1.3); Blood Urea Nitrogen 12 mg/dl (7-17); Calcium 8.4 mg/dl (8.4-10.2); Carbon Dioxide 28 mmol/L (22.0-30.0); Chloride 107 mmol/L (98-107); Creatinine Clearance Estimated 68 mL/min (50-200); Creatinine,Serum 0.90 mg/dl (0.52-1.04); Estimated Glomerular Filt Rate 65 ml/min (>60); GFR (African American) 78 ML/MIN (>60); Globulin 2.3 g/dL (1.3-3.2); Glucose 102 mg/dl (74-100); Magnesium 2.1 mg/dl (1.6-2.3); Potassium 4.0 mmoL/L (3.5-5.1); Sodium 137 mmol/L (136-145); Total Protein,Serum 5.4 g/dl (6.3-8.2)
[2025-04-11 06:43] LABS: C-Reactive Protein 1.6 mg/L (0-4)
--- NOTE | 2025-04-11 08:53 | HMH.PHAAMS2 ---
- Antimicrobial Stewardship Review culture & sensitivity review Stewardship interventions: culture & sensitivity review (PT ON VANCOMYCIN AND ZOSYN, WBC DECREASED, AFEBRILE, NO GROWTH IN BLOOD CX.)
--- NOTE | 2025-04-11 09:04 | EXP.PULM.CON ---
History of Present Illness History of present illness: Ms. May is a 54-year-old female no significant smoking history, cervical degenerative disc disease herniation recently discharged from the hospital for concerning airspace disease On levofloxacin presented today with worsening respiratory distress pleuritic chest pain noted to have worsening left upper lobe airspace disease and pulmonary was called for further evaluation and management. Patient admits worsening respiratory failure significant pleuritic chest pain upon discharge from the hospital. [facility] Disclaimer: The information contained in this section may have been updated after the patient was seen, as this information can be updated by other users. Medical History (Updated 04/11/25 @ 11:38 by Ivan Lopes MD) ILD (interstitial lung disease) Shortness of Breath Angina pectoris Constipation in female GERD (gastroesophageal reflux disease) Pituitary mass Chronic cough Deviated septum Hoarseness or changing voice Nasal drainage Thyroid disease Surgical History History of ankle surgery Hx of arthroscopic knee surgery History of delivery Family History Other Family history of hypothyroidism Social History Smoking Status: Never smoker second hand exposure: No alcohol intake: current alcohol intake frequency: holidays/special occasions only substance use type: denies use current occupational status: other Travel in the last 8 weeks?: None household members: spouse and family housing: house current occupation: [employer] current occupational exposures/hazards: No caffeine: Yes Review of Systems Constitutional Constitutional: Denies anorexia, Denies body ache(s) and Denies fatigue Eyes Eyes: Denies eye discharge, Denies dry eyes, Denies irritation and Denies itchy eyes ENT Ears, Nose, Mouth, and Throat: Denies epistaxis, Denies facial pain, Denies lip swelling and Denies throat swelling *Cardiovascular Cardiovascular: Reports dyspnea and Reports dyspnea on exertion *Respiratory Respiratory: Denies change in phlegm color, Reports chest congestion, Reports cough, Reports dyspnea, Reports dyspnea on exertion, Denies excessive phlegm production, Denies hemoptysis, Reports pain on inspiration, Reports pain with cough and Denies wheezing *Gastrointestinal Gastrointestinal: Denies abdominal pain, Denies belching and Denies cramping *Musculoskeletal Musculoskeletal: Reports back pain, Reports myalgias and Reports other (No small joint swelling or Pain) Psychiatric Psychiatric: Denies homicidal ideation and Denies suicidal ideation Endocrine Endocrine: Denies fatigue and Denies heat intolerance Hematologic/Lymphatic Hematologic/Lymphatic: Denies easy bleeding and Denies lymphadenopathy Allergic/Immunologic Allergic/Immunologic: Denies itchy eyes, Denies lip swelling, Denies throat swelling and Denies wheezing Pulmonology Exam Inpatient Vital signs and Labs for Last 24 Hours: Temp Pulse Resp BP Pulse Ox O2 Del Method 98.2 F 67 14 116/70 96 Room Air 04/11/25 07:56 04/11/25 07:56 04/11/25 07:56 04/11/25 07:56 04/11/25 07:56 04/11/25 07:56 Laboratory Results - last 24 hr 04/10/25 06:20: Lactate Dehydrogenase 191 L 04/11/25 05:41: WBC 6.3 D, RBC 3.69 L, Hgb 11.0 L, Hct 33.3 L, MCV 90.2, MCH 29.8, MCHC 33.0, RDW 13.6, Plt Count 307, MPV 9.4, Neut % (Auto) 48.6, Lymph % (Auto) 44.0, [place] % (Auto) 6.0, Eos % (Auto) 0.0 L, Baso % (Auto) 1.1, Neut # (Auto) 3.1, Lymph # (Auto) 2.8, [place] # (Auto) 0.4, Eos # (Auto) 0.0, Baso # (Auto) 0.1, Sodium 137, Potassium 4.0, Chloride 107, Carbon Dioxide 28, Anion Gap 6.0, BUN 12, Creatinine 0.90, Estimated Creat Clear 68, Estimated GFR 65, Est GFR ( Amer) 78, Glucose 102 H D, Calcium 8.4, Magnesium 2.1, Total Bilirubin 0.2, AST 24, ALT 11 L, Alkaline Phosphatase 56, C-Reactive Protein 1.6 D, Total Protein 5.4 L, Albumin 3.1 L D, Globulin 2.3, Albumin/Globulin Ratio 1.3 I & O for Labs for Last 24 Hours: Intake & Output 04/08/25 04/09/25 04/10/25 04/11/25 23:59 23:59 23:59 23:59 Intake Total 1080 / 1500 3858.333 / 4038.333 467.5 / 467.5 Output Total 0 / 0 0 / 0 0 / 0 Balance 1080 / 1500 3858.333 / 4038.333 467.5 / 467.5 Weight 131 lb 136 lb 3.2 oz 136 lb 12.8 oz Microbiology Reports for the Last 24 Hours: Microbiology 04/09/25 11:25 Blood Blood Culture - Preliminary NO GROWTH AFTER 24 HOURS 04/09/25 11:15 Blood Blood Culture - Preliminary NO GROWTH AFTER 24 HOURS Constitutional: Present moderate distress Head: Present normocephalic and atraumatic ENT: Present normal exam, normal oropharynx and mucous membranes moist Neck: Present normal inspection and full ROM Respiratory: Present respiratory distress and able to speak in complete sentences; Absent rhonchi, wheezes or crackles Cardiac: Present S1/S2, Tachycardia and radial pulses present GI: Present soft and distention; Absent tenderness or guarding Rectal (female): Present deferred (female): Present deferred Skin: Present intact; Absent cyanosis or jaundice Neuro: Present alert, awake and oriented x 3 Extremities: Present normal inspection; Absent clubbing or cyanosis Psychiatric: Present normal affect and cooperative Meds Home Medications and Allergies Home Medications ?Medication ?Instructions ?Recorded ?Confirmed ?Type amitriptyline 100 mg tablet 100 mg PO HS 06/14/20 04/10/25 History temazepam 15 mg capsule 15 mg PO HS 06/14/20 04/10/25 History levothyroxine 88 mcg tablet 88 mcg PO DAILYDM 04/03/22 04/10/25 History omeprazole 40 mg capsule,delayed 40 mg PO DAILY 10/03/22 04/10/25 History release famotidine 40 mg tablet 40 mg PO HS 10/10/22 04/10/25 History tizanidine 2 mg tablet 4 mg PO HS 10/10/22 04/10/25 History estradiol 0.01% (0.1 mg/gram) 1 g vaginal HS 04/10/25 04/10/25 History vaginal cream oxycodone 10 mg tablet 5 mg PO TIDP PRN Moderate Pain 04/10/25 04/10/25 History (Scale Score 5-6) New Prescriptions to Start Prescriptions: Allergies Allergy/AdvReac Type Severity Reaction Status Date / Time dichloralphenazone (From AdvReac Hallucinati Verified 03/17/25 13:59 Midrin) ng isometheptene (From Midrin) AdvReac Hallucinati Verified 03/17/25 13:59 ng Results Laboratory Findings 04/11/25 05:41 04/11/25 05:41 Abnormal lab findings: Abnormal Labs 04/09/25 04/09/25 04/10/25 11:15 11:38 06:20 WBC 11.4 H D RBC 3.93 L Hgb 11.4 L D Hct 35.1 L Plt Count 498 H Neut % (Auto) 86.8 H Eos % (Auto) 0.0 L 0.0 L Neut # (Auto) 9.9 H VBG pH 7.43 H VBG Total CO2 28.8 H VBG Base Excess 3.2 H VBG Lactic Acid 2.9 H Sodium 135 L Glucose 142 H D Lactate 2.3 H ALT Lactate Dehydrogenase 191 L C-Reactive Protein 4.3 H NT-Pro-B Natriuret Pep 269 H Total Protein 6.2 L Albumin 04/11/25 05:41 WBC RBC 3.69 L Hgb 11.0 L Hct 33.3 L Plt Count Neut % (Auto) Eos % (Auto) 0.0 L Neut # (Auto) VBG pH VBG Total CO2 VBG Base Excess VBG Lactic Acid Sodium Glucose 102 H D Lactate ALT 11 L Lactate Dehydrogenase C-Reactive Protein NT-Pro-B Natriuret Pep Total Protein 5.4 L Albumin 3.1 L D Assessment and Plan *Assessment and plan (1) Multifocal pneumonia: Status: Acute Category: Medical Code(s): J18.8 - Other pneumonia, unspecified organism (2) ILD (interstitial lung disease): Status: Acute Category: Medical Code(s): J84.9 - Interstitial pulmonary disease, unspecified Plan Ms. May is a 54-year-old female no significant smoking history, cervical degenerative disc disease herniation recently discharged from the hospital for concerning airspace disease On levofloxacin presented today with worsening respiratory distress pleuritic chest pain noted to have worsening left upper lobe airspace disease and pulmonary was called for further evaluation and management. Patient admits worsening respiratory failure significant pleuritic chest pain upon discharge from the hospital. Pets include cats at home which was new 3 weeks ago. Denies any prior history of allergies or asthma. Afebrile. Hemodynamically stable. full respiratory viral PCR panel negative Patient inflammatory markers including WBC CRP Pro-Jevon normalized from her most recent admission except for her noted left upper lobe airspace disease significantly worsened on her current CT scan than compared to her most recent admission CT scan. CT PE upon admission previously noted right middle and lower lobe infiltrates improving, the concerning left upper lobe lobar airspace disease significantly worsened. Otherwise clinically stable continue to remain on room air. Receiving vancomycin and Zosyn for possible hospital-acquired pneumonia. Possible differential and hypersensitive pneumonitis/nonresolving pneumonia at this point of time. On examination no respiratory distress. Continue complain of left-sided pleuritic chest pain improving from admission Plan: Bronchoscopy airway examination transbronchial biopsy left upper lobe before proceeding with continued rehab/immunosuppressive therapy for possible HP. Consent obtained. Continue vancomycin and Zosyn pending bronchoscopy results DuoNebs every 6 as needed # Thank you for involving pulmonary in this patient care. Will continue to follow
--- NOTE | 2025-04-11 09:31 | XR_ITS ---
FINAL REPORT CLINICAL HISTORY: PNM COMPARISON: 03/27/2025 FINDINGS: A portable view of the chest was obtained. Cardiac and mediastinal silhouettes are within normal limits. There has been interval worsening of patchy bilateral airspace opacities concerning for pneumonia. Small left pleural effusion is noted. There is no pneumothorax.. IMPRESSION: Interval worsening bilateral opacities concerning for pneumonia. Recommend follow-up. Reviewed, Interpreted and Dictated by Luz Maria Washington MD Transcribed by Carolyn Barrera Authenticated and [facility]
--- NOTE | 2025-04-11 11:40 | EXP.PN ---
Subjective *Date: 04/11/25 *Time: 11:40 Interval history: Patient doing well, left pleuritic chest pain resolved. Around 10 that she received IV Toradol and Robaxin yesterday, no longer needing pain medicine since then. Discussed with pulmonology, would like to keep her overnight to follow-up on BAL cultures/Gram stain before discharging with either antibiotics versus immunosuppressive therapy for possible hypersensitivity pneumonitis. Exam Data for Last 24 hours Vital signs and Labs for Last 24 Hours: Temp Pulse Resp BP Pulse Ox O2 Del Method 98.2 F 67 14 116/70 96 Room Air 04/11/25 07:56 04/11/25 07:56 04/11/25 07:56 04/11/25 07:56 04/11/25 07:56 04/11/25 07:56 Laboratory Results - last 24 hr 04/10/25 06:20: Lactate Dehydrogenase 191 L 04/11/25 05:41: WBC 6.3 D, RBC 3.69 L, Hgb 11.0 L, Hct 33.3 L, MCV 90.2, MCH 29.8, MCHC 33.0, RDW 13.6, Plt Count 307, MPV 9.4, Neut % (Auto) 48.6, Lymph % (Auto) 44.0, [place] % (Auto) 6.0, Eos % (Auto) 0.0 L, Baso % (Auto) 1.1, Neut # (Auto) 3.1, Lymph # (Auto) 2.8, [place] # (Auto) 0.4, Eos # (Auto) 0.0, Baso # (Auto) 0.1, Sodium 137, Potassium 4.0, Chloride 107, Carbon Dioxide 28, Anion Gap 6.0, BUN 12, Creatinine 0.90, Estimated Creat Clear 68, Estimated GFR 65, Est GFR ( Amer) 78, Glucose 102 H D, Calcium 8.4, Magnesium 2.1, Total Bilirubin 0.2, AST 24, ALT 11 L, Alkaline Phosphatase 56, C-Reactive Protein 1.6 D, Total Protein 5.4 L, Albumin 3.1 L D, Globulin 2.3, Albumin/Globulin Ratio 1.3 I & O for Last 24 hours: Intake & Output 04/08/25 04/09/25 04/10/25 04/11/25 23:59 23:59 23:59 23:59 Intake Total 1080 / 1500 3858.333 / 4038.333 567.5 / 567.5 Output Total 0 / 0 0 / 0 0 / 0 Balance 1080 / 1500 3858.333 / 4038.333 567.5 / 567.5 Weight 59.421 kg 61.779 kg 62.051 kg Microbiology Reports for the Last 24 Hours: Microbiology 04/09/25 11:25 Blood Blood Culture - Preliminary NO GROWTH AFTER 24 HOURS 04/09/25 11:15 Blood Blood Culture - Preliminary NO GROWTH AFTER 24 HOURS Constitutional Constitutional: no acute distress *Routine HEENT Exam Head: Present normocephalic Eye: Present EOMI and PERRL ENT: Present mucous membranes moist *Routine Neck Exam Neck: Present supple; Absent lymphadenopathy *Routine Respiratory Exam Respiratory: Present CTA bilaterally *Routine Cardiovascular Exam Cardiovascular: Present RRR *Routine Abdominal Exam Abdominal: Present soft and normoactive bowel sounds; Absent tenderness *Routine Extremities Exam Extremities: Absent cyanosis, clubbing or edema *Routine Skin Exam Skin: Present warm; Absent rash *Routine Neurological Exam Neurological: Present alert and oriented X3 Assessment and Plan *Assessment and plan (1) Multifocal pneumonia: Status: Acute Category: Medical Code(s): J18.8 - Other pneumonia, unspecified organism Plan Martine Patiño is a 54-year-old female with a medical history significant for chronic pain from cervical degenerative disc disease, herniation, neuroforaminal narrowing presents with several day history of left-sided pleuritic pain. Patient was recently discharged from facility on 03/28/2025 for left-sided pneumonia. Patient felt better after discharge, but this week she began having left-sided pleuritic chest pain that has progressively gotten worse. She was evaluated by her PCP today who recommended she come to the ED. Workup in the ED significant for WBC 7.5, CRP 4.3, BNP 269, normal respiratory panel, CTA chest showing multifocal opacities especially prominent in the left upper lobe suggesting either pneumonia or hypersensitive pneumonitis, all more prominent compared to previous admission. Trace left pleural effusion. 4 left pleuritic chest pain she was given Toradol, morphine, Solu-Medrol with some alleviation of symptoms. I discussed findings with Dr. Lopes who recommended admission and bronchoscopy on Friday, so I decided to admit patient after discussing with ED provider. #Suspected hospital-acquired pneumonia versus hypersensitive pneumonitis versus cryptogenic pneumonia #Left chest pain ? Presented with progressively worsening left pleuritic chest pain. On room air, WBC and CRP normal. ? CTA chest suggestive of multifocal worsening opacities especially in left upper lobe. ? Discussed with pulmonology, recommended bronchoscopy on Friday. ? Today, patient states she feels much better. Left pleuritic chest pain resolved, around the time that she received IV Toradol and Robaxin yesterday. Has not required pain medication since then. ? WBC normal 6.3 today, CRP normal 1.6 today. ? Continue vancomycin, Zosyn 3.375 g every 6 hours for HAP coverage. ? Will hold off on steroids for now pending BAL cultures. ? Discussed with pulmonology, follow-up on BAL cultures/Gram stain tomorrow to decide antibiotics versus immunosuppressive therapy. ? Follow-up sputum, blood cultures. ? Follow-up morning CBC, procalcitonin, CRP. ? Tylenol, Toradol, [place], morphine for pain control. #Chronic pain #Cervical degenerative disc disease, herniation, neuroforaminal narrowing ? Continue home oxycodone 5 mg, temazepam 15 mg, tizanidine in 2 mg, amitriptyline 20 mg. #GERD ? Continue PPI. #Hypothyroidism ? Continue home levothyroxine 88 mcg. Full code DVT prophylaxis: IPC's
--- NOTE | 2025-04-11 14:08 | P.PNANES_ITS ---
[facility] Disclaimer: The information contained in this section may have been updated after the patient was seen, as this information can be updated by other users. Medical History (Updated 04/11/25 @ 11:38 by Ivan Lopes MD) ILD (interstitial lung disease) Shortness of Breath Angina pectoris Constipation in female GERD (gastroesophageal reflux disease) Pituitary mass Chronic cough Deviated septum Hoarseness or changing voice Nasal drainage Thyroid disease Surgical History History of ankle surgery Hx of arthroscopic knee surgery History of delivery Family History Other Family history of hypothyroidism Social History Smoking Status: Never smoker second hand exposure: No alcohol intake: current alcohol intake frequency: holidays/special occasions only substance use type: denies use current occupational status: other Travel in the last 8 weeks?: None household members: spouse and family housing: house current occupation: [employer] current occupational exposures/hazards: No caffeine: Yes [facility] Anesthesia Checklist Patient Identification Patient Identification: Arm Band Structural Data Admitted From: Home Planned Operative Procedure/s: Bronchoscopy with Biopsy Consent for Planned Operative Procedure(s) Verified: Yes Verified Documents: Surgical Consent and History and Physical NPO Status Verified Time NPO: 00:00 Additional verifications Anesthesia Reactions: No Hx Blood Transfusions: No Blood Transfusion Reaction: No Airway Assessment Mallampati Score:: Class II C-Spine Mobility Assessed: Yes TMJ Mobility Assessed: Yes Dentition: Good Dentition Neurological Assessment Level of Consciousness: Awake, Alert and Appropriate Anesthesia Plan Anesthesia Risk discussed: Yes Anesthesia Plan: Verified ASA Class: II Anesthesia Type: General
--- NOTE | 2025-04-11 14:39 | XR_ITS ---
FINAL REPORT TECHNIQUE: Portable chest CLINICAL HISTORY: sp bronchoscopy COMPARISON: Earlier exam 04/11/2025 at 9:37 AM FINDINGS: A portable view of the chest was obtained. Cardiac and mediastinal silhouettes are within normal limits. There is worsening of the previously visualized left upper lobe opacity, and there is no left base airspace disease. This may represent atelectasis, although postbiopsy hemorrhage is not excluded. There is no pleural effusion or pneumothorax. IMPRESSION: Worsening left upper lobe and left base airspace disease, atelectasis versus postprocedural hemorrhage. No evidence of pneumothorax. Reviewed, Interpreted and Dictated by Luz Maria Washington MD Transcribed by Maricruz Garrido Authenticated and . [facility]
--- NOTE | 2025-04-11 14:44 | P.PNANES_ITS ---
[facility] Anesthesia Record Part I Anesthesia Record I Intake, IV Amount: 600 Hydration: Adequate Estimated blood loss (mL): 5 Urine output (mL): 0 Blood Products used (#): none Blood Pressure: 115/70 SaO2: 94 Pulse Rate: 84 Airway Patency: Patent Respiratory Rate: 20 Temperature: 97.5 F Patient is:: Stable Stable to PACU at:: 14:34
--- NOTE | 2025-04-11 15:08 | XR_ITS ---
FINAL REPORT CLINICAL HISTORY: BRONCH FLUORO 208.2 90.1 mGy FINDINGS: FLUOROSCOPY LESS THAN 1 HOUR HISTORY: Guidance for bronchoscopy FINDINGS: Fluoroscopic guidance was provided for bronchoscopy. A single spot film was obtained. 208.2 seconds of fluoroscopy time were used, with a dosage of 2.36 mGy. IMPRESSION: As above. Reviewed, Interpreted and Dictated by Luz Maria Washington MD Transcribed by Maricruz Garrido Authenticated and [facility]
--- NOTE | 2025-04-11 15:21 | EXP.BRONCH.N ---
Procedure: Date: 04/11/25 Patient Date of :: 1970 Procedure Performed:: Bronchoscopy airway examination, bronchoalveolar lavage and transbronchial lung biopsy: Indications:: Nonresolving pneumonia/interstitial lung disease Performing Provider:: Ivan Lopes MD Referring Provider:: Sedation:: General anesthesia Procedure:: Bronchoscopy airway examination, bronchoalveolar lavage and transbronchial lung biopsy: A clean diagnosis bronchoscopy was advanced through the ET tube and airways were examined up to subsegmental bronchi. Airways appeared grossly normal, no evidence of mucoid secretions, mucous plugging active bleeding/old blood clots noted. Bronchoalveolar lavage was performed in the TONA with instillation of 60 cc normal saline with return of 20cc back. BAL fluid was sent for cell count and differential along with bacterial fungal and AFB stain and cultures. Transbronchial forceps lung biopsy was performed in the TONA with a total of 7 biopsies performed, 5 biopsy specimens were sent in formalin for cytopathologic examination. The other 2 biopsy samples, were sent one each in two separate normal saline specimen cups for bacterial fungal and AFB stain cultures. Special request was also made for the pathologist to evaluate for AFB and fungal organisms on the cytopathologic examination. Patient tolerated the procedure with no immediate acute complications. We will follow the patient in pulmonary clinic in 7 to 10 days. Findings:: Please see the procedure note Recommendations:: Postoperative bronchoscopy instructions Continue current antibiotics pending bronchoscopy results Complications:: No acute immediate complications Estimated blood obtained (mL): 5
[2025-04-11] MEDS: KETOROLAC 30MG/ML VIAL 30 MG IV (15:59)
[2025-04-11] MEDS: ACETAMINOPHEN 325MG TAB 650 MG PO (17:02)
--- NOTE | 2025-04-11 19:14 | PC.NURSE ---
Clarified Lactacte ringers order with [place]. Hold infusion at this time.
[2025-04-11] MEDS: TEMAZEPAM 15MG CAPSULE 15 MG PO (20:48)
[2025-04-11 21:02] LABS: Vancomycin,Trough 10.0 ug/mL (5.0-10.0)
[2025-04-11] MEDS: VANCOMYCIN HCL 1,000 MG in 0.9 % SODIUM CHLORIDE 250 ML 125 MG IV (21:22)
[2025-04-12] VITALS: BP 116/64; PULSE 70; RESP 14; TEMP 36.6; O2SAT 98
[2025-04-12] MEDS: PIPERACILLIN/TAZO 4.5 GM in 0.9 % SODIUM CHLORIDE 100 ML IV ×2 (02:11→08:00)
[2025-04-12 04:00] VITALS: BP 105/70; PULSE 67; RESP 14; TEMP 36.6; O2SAT 94; BMI 27.8
--- NOTE | 2025-04-12 04:00 | PC.NURSE ---
Patient remains pleasantly alert and oriented x4. She was observed to be resting in bed with eyes closed, respirations even and unlabored on room air, and no apparent distress throughout the majority of the night. Patient remains without complaints of shortness of breath, chest/rib pain, headaches, etc. Oxygen saturations > 90%. A sputum sample remains uncollected, no productive cough endorsed by the patient. Physical assessment was performed (see nursing shift biophysical intervention) as appropriately for this shift. Scheduled medications were administered per JUL. Lactated Ringers infusion previously discontinued by day shift provider. SCDs remain in place for VTE prophylaxis. Vital signs stable. At this time, the patient continues to rest in bed without any new needs vocalized. No acute changes noted thus far. Call light within reach.
[2025-04-12 06:18] LABS: Hematocrit 34.3 % (37.0-47.0); Hemoglobin 11.3 g/dL (12.2-16.2); Immature Granulocytes % 0.4 %; Mean Corpuscular HGB Conc 32.9 g/dL (31.8-35.4); Mean Corpuscular Hemoglobin 29.3 pg (27.0-31.2); Mean Corpuscular Volume 88.9 fl (81-99); Nucleated Red Blood Cells % 0 %; Platelet Count 386 K/mm3 (142-424); Red Blood Count 3.86 M/mm3 (4.20-5.40); Red Cell Distribution Width-SD 43.2 fL; White Blood Count 10.0 K/mm3 (4.8-10.8)
[2025-04-12 06:19] LABS: Alanine Aminotransferase 12 U/L (12-78); Albumin Level 3.4 g/dl (3.5-5.0); Albumin/Globulin Ratio 1.4 (1.1-1.8); Alkaline Phosphatase 55 U/L (38-126); Aspartate Amino Transferase 22 U/L (14-36); Bilirubin,Total 0.4 mg/dl (0.2-1.3); Blood Urea Nitrogen 9 mg/dl (7-17); Calcium 8.9 mg/dl (8.4-10.2); Carbon Dioxide 28 mmol/L (22.0-30.0); Creatinine Clearance Estimated 74 mL/min (50-200); Creatinine,Serum 0.90 mg/dl (0.52-1.04); Estimated Glomerular Filt Rate 65 ml/min (>60); GFR (African American) 78 ML/MIN (>60); Globulin 2.4 g/dL (1.3-3.2); Glucose 93 mg/dl (74-100); Magnesium 2.2 mg/dl (1.6-2.3); Total Protein,Serum 5.8 g/dl (6.3-8.2)
[2025-04-12 06:25] LABS: C-Reactive Protein 1.6 mg/L (0-4)
--- NOTE | 2025-04-12 07:15 | EXP.ANES.II ---
[facility] Anesthesia Record Part II Anesthesia Record Part II Discharge Time: 14:53 Destination: Surgical Day Care (OP Surgery) PACU nurse assessment reviewed?: Yes Patient Condition:: Good Anesthesia Complications:: None Swallowing reflex intact?: Yes Airway Patency: Patent Cyanosis?: No Blood Pressure: 100/70 SaO2: 95 Respiratory Rate: 16 Pulse Rate: 75 Temperature: 98.2 F Mental Status: Alert & Oriented Pain level:: 0 Nausea and/or vomitting:: None Intake, IV Amount: 0 Hydration: Adequate
[2025-04-12 07:16] VITALS: BP 100/70; PULSE 75; RESP 16; TEMP 36.8; O2SAT 95
[2025-04-12 08:00] VITALS: BP 110/72; PULSE 75; RESP 18; TEMP 36.8; O2SAT 100
--- NOTE | 2025-04-12 08:22 | HMH.PHAAMS2 ---
- Antimicrobial Stewardship Review culture & sensitivity review Stewardship interventions: culture & sensitivity review (PT ON ZOSYN AND VANCO, WBC NOW WNL, AFEBRILE, CX PENDING.)
--- NOTE | 2025-04-12 08:30 | HMH.PHAAMS2 ---
- Antimicrobial Stewardship Review 48 hour timeout review Stewardship interventions: 48 hour timeout review (PT ON ZOSYN AND VANCO, WBC NOW WNL, AFEBRILE, CX PENDING.)
[2025-04-12 09:00] LABS: Anion Gap 7.0 mEq/L (5-15); Chloride 104 mmol/L (98-107); Potassium 4.0 mmoL/L (3.5-5.1); Sodium 135 mmol/L (136-145)
--- NOTE | 2025-04-12 09:44 | P.PN_ITS ---
Subjective *Date: 04/12/25 *Time: 12:15 Interval history: No acute respiratory vents overnight. Admits improving pleuritic chest pain Pulmonology Exam Inpatient Vital signs and Labs for Last 24 Hours: Temp Pulse Resp BP Pulse Ox O2 Del Method O2 Flow Rate 98.3 F 75 18 110/72 100 Room Air 2 04/12/25 08:00 04/12/25 08:00 04/12/25 08:00 04/12/25 08:00 04/12/25 08:00 04/12/25 08:00 04/11/25 14:53 Laboratory Results - last 24 hr 04/11/25 20:21: Vancomycin Trough 10.0 04/12/25 05:29: WBC 10.0 D, RBC 3.86 L, Hgb 11.3 L, Hct 34.3 L, MCV 88.9, MCH 29.3, MCHC 32.9, RDW 13.3, Plt Count 386 D, MPV 9.5, Neut % (Auto) 68.2, Lymph % (Auto) 25.8, Mcculloch % (Auto) 5.0, Eos % (Auto) 0.0 L, Baso % (Auto) 0.6, Neut # (Auto) 6.8, Lymph # (Auto) 2.6, Mcculloch # (Auto) 0.5, Eos # (Auto) 0.0, Baso # (Auto) 0.1, Sodium 135 L, Potassium 4.0, Chloride 104, Carbon Dioxide 28, Anion Gap 7.0, BUN 9, Creatinine 0.90, Estimated Creat Clear 74, Estimated GFR 65, Est GFR ( Amer) 78, Glucose 93, Calcium 8.9, Magnesium 2.2, Total Bilirubin 0.4, AST 22, ALT 12, Alkaline Phosphatase 55, C-Reactive Protein 1.6, Total Protein 5.8 L, Albumin 3.4 L, Globulin 2.4, Albumin/Globulin Ratio 1.4 Temp Pulse Resp BP Pulse Ox O2 Del Method 98.2 F 67 14 116/70 96 Room Air 04/11/25 07:56 04/11/25 07:56 04/11/25 07:56 04/11/25 07:56 04/11/25 07:56 04/11/25 07:56 Laboratory Results - last 24 hr 04/10/25 06:20: Lactate Dehydrogenase 191 L 11/24/25 05:41: WBC 6.3 D, RBC 3.69 L, Hgb 11.0 L, Hct 33.3 L, MCV 90.2, MCH 29.8, MCHC 33.0, RDW 13.6, Plt Count 307, MPV 9.4, Neut % (Auto) 48.6, Lymph % (Auto) 44.0, Mcculloch % (Auto) 6.0, Eos % (Auto) 0.0 L, Baso % (Auto) 1.1, Neut # (Auto) 3.1, Lymph # (Auto) 2.8, Mcculloch # (Auto) 0.4, Eos # (Auto) 0.0, Baso # (Auto) 0.1, Sodium 137, Potassium 4.0, Chloride 107, Carbon Dioxide 28, Anion Gap 6.0, BUN 12, Creatinine 0.90, Estimated Creat Clear 68, Estimated GFR 65, Est GFR ( Amer) 78, Glucose 102 H D, Calcium 8.4, Magnesium 2.1, Total Bilirubin 0.2, AST 24, ALT 11 L, Alkaline Phosphatase 56, C-Reactive Protein 1.6 D, Total Protein 5.4 L, Albumin 3.1 L D, Globulin 2.3, Albumin/Globulin Ratio 1.3 I & O for Labs for Last 24 Hours: Intake & Output 04/09/25 04/10/25 04/11/25 04/12/25 23:59 23:59 23:59 23:59 Intake Total 1080 / 1500 3858.333 / 4038.333 2501.667 / 2855.667 724 / 724 Output Total 0 / 0 0 / 0 0 / 0 250 / 250 Balance 1080 / 1500 3858.333 / 4038.333 2501.667 / 2855.667 474 / 474 Weight 131 lb 136 lb 3.2 oz 136 lb 12.8 oz 147 lb 7 oz Intake & Output 04/08/25 04/09/25 04/10/25 04/11/25 23:59 23:59 23:59 23:59 Intake Total 1080 / 1500 3858.333 / 4038.333 467.5 / 467.5 Output Total 0 / 0 0 / 0 0 / 0 Balance 1080 / 1500 3858.333 / 4038.333 467.5 / 467.5 Weight 131 lb 136 lb 3.2 oz 136 lb 12.8 oz Microbiology Reports for the Last 24 Hours: Microbiology 04/09/25 11:25 Blood Blood Culture - Preliminary NO GROWTH AFTER 48 HOURS 04/09/25 11:15 Blood Blood Culture - Preliminary NO GROWTH AFTER 48 HOURS Microbiology 04/09/25 11:25 Blood Blood Culture - Preliminary NO GROWTH AFTER 24 HOURS 04/09/25 11:15 Blood Blood Culture - Preliminary NO GROWTH AFTER 24 HOURS Constitutional: Present moderate distress Head: Present normocephalic and atraumatic ENT: Present normal exam, normal oropharynx and mucous membranes moist Neck: Present normal inspection and full ROM Respiratory: Present respiratory distress and able to speak in complete sentences; Absent rhonchi, wheezes or crackles Cardiac: Present S1/S2, Tachycardia and radial pulses present GI: Present soft and distention; Absent tenderness or guarding Rectal (female): Present deferred (female): Present deferred Skin: Present intact; Absent cyanosis or jaundice Neuro: Present alert, awake and oriented x 3 Extremities: Present normal inspection; Absent clubbing or cyanosis Psychiatric: Present normal affect and cooperative Assessment and Plan *Assessment and plan (1) Multifocal pneumonia: Status: Acute Category: Medical Code(s): J18.8 - Other pneumonia, unspecified organism (2) ILD (interstitial lung disease): Status: Acute Category: Medical Code(s): J84.9 - Interstitial pulmonary disease, unspecified Plan Ms. May is a 54-year-old female no significant smoking history, cervical degenerative disc disease herniation recently discharged from the hospital for concerning airspace disease On levofloxacin presented today with worsening respiratory distress pleuritic chest pain noted to have worsening left upper lobe airspace disease and pulmonary was called for further evaluation and management. Patient admits worsening respiratory failure significant pleuritic chest pain upon discharge from the hospital. Pets include cats at home which was new 3 weeks ago. Denies any prior history of allergies or asthma. Afebrile. Hemodynamically stable. full respiratory viral PCR panel negative Patient inflammatory markers including WBC CRP Pro-Jevon normalized from her most recent admission except for her noted left upper lobe airspace disease significantly worsened on her current CT scan than compared to her most recent admission CT scan. CT PE upon admission previously noted right middle and lower lobe infiltrates improving, the concerning left upper lobe lobar airspace disease significantly worsened. Otherwise clinically stable continue to remain on room air. Receiving vancomycin and Zosyn for possible hospital-acquired pneumonia. Possible differential and hypersensitive pneumonitis/nonresolving pneumonia at this point of time. On initial examination no respiratory distress. Continue complain of left-sided pleuritic chest pain improving from admission. Interval update: No acute respiratory vents overnight. Status post bronchoscopy, BAL rare gram- positive cocci. Afebrile. No evidence of leukocytosis. Hemodynamically stable. Continue to remain on room air. Continue to receive vancomycin and Zosyn. Plan: Follow-up with final bronchoscopy results. Weaned Abx to Bactrim DS BID to complete a total of 7 days Will hold off on initiating steroids at this point of time pending clinical improvement DuoNebs every 6 as needed # Thank you for involving pulmonary in this patient care. Will follow the patient pulmonary clinic 5 to 7 days with a chest x-ray PA lateral prior to clinic visit
[2025-04-12 12:00] VITALS: BP 107/64; PULSE 89; RESP 18; TEMP 37; O2SAT 97
--- NOTE | 2025-04-12 12:23 | EXP.DC.SUM ---
General Admission date:: 04/09/25 Discharge date: 04/12/25 HPI HPI HPI: Martine Patiño is a 54-year-old female with a medical history significant for chronic pain from cervical degenerative disc disease, herniation, neuroforaminal narrowing presents with several day history of left-sided pleuritic pain. Patient was recently discharged from facility on 03/28/2025 for left-sided pneumonia. Patient felt better after discharge, but this week she began having left-sided pleuritic chest pain that has progressively gotten worse. She was evaluated by her PCP today who recommended she come to the ED. Workup in the ED significant for WBC 7.5, CRP 4.3, BNP 269, normal respiratory panel, CTA chest showing multifocal opacities especially prominent in the left upper lobe suggesting either pneumonia or hypersensitive pneumonitis, all more prominent compared to previous admission. Trace left pleural effusion. 4 left pleuritic chest pain she was given Toradol, morphine, Solu-Medrol with some alleviation of symptoms. I discussed findings with Dr. Lopes who recommended admission and bronchoscopy on Friday, so I decided to admit patient after discussing with ED provider. Hospital Course Hospital Course Hospital Course: Martine Patiño is a 54-year-old female with a medical history significant for chronic pain from cervical degenerative disc disease, herniation, neuroforaminal narrowing presents with several day history of left-sided pleuritic pain. Patient was recently discharged from facility on 03/28/2025 for left-sided pneumonia. Patient felt better after discharge, but this week she began having left-sided pleuritic chest pain that has progressively gotten worse. She was evaluated by her PCP today who recommended she come to the ED. Workup in the ED significant for WBC 7.5, CRP 4.3, BNP 269, normal respiratory panel, CTA chest showing multifocal opacities especially prominent in the left upper lobe suggesting either pneumonia or hypersensitive pneumonitis, all more prominent compared to previous admission. Trace left pleural effusion. 4 left pleuritic chest pain she was given Toradol, morphine, Solu-Medrol with some alleviation of symptoms. I discussed findings with Dr. Lopes who recommended admission and bronchoscopy on Friday, so I decided to admit patient after discussing with ED provider. Bronchus tolerated without incident. Discussed case with pulmonology, transition to oral antibiotics to complete empiric course. Stable discharge home with close does not patient with. Problems addressed as follows: #Suspected hospital-acquired pneumonia versus hypersensitive pneumonitis versus cryptogenic pneumonia #Left chest pain ? Presented with progressively worsening left pleuritic chest pain. On room air, WBC and CRP normal. CTA chest suggestive of multifocal worsening opacities especially in left upper lobe. Discussed with pulmonology, recommended bronchoscopy. Taken for bronchoscopy on Wednesday 04/11. BAL cultures and Gram stain still pending. Transition to Bactrim after tolerating Vanco and Zosyn during admission. Complete 7 days of antibiotics. White count has remained normal. Patient remained stable on room air. Overall feeling well. - Blood cultures remain negative. Gram stain showed rare gram-positive cocci. Cultures remain negative at time of discharge but are still pending #Chronic pain #Cervical degenerative disc disease, herniation, neuroforaminal narrowing ? Continue home oxycodone 5 mg, temazepam 15 mg, tizanidine in 2 mg, amitriptyline 20 mg. #GERD: Continue PPI. #Hypothyroidism: Continue home levothyroxine 88 mcg. Total time spent on discharge 32 minutes in counseling, documentation, chart review, and direct care with patient. Exam Data for Last 24 hours Vital signs and Labs for Last 24 Hours: Temp Pulse Resp BP Pulse Ox O2 Del Method O2 Flow Rate 98.3 F 75 18 110/72 100 Room Air 2 04/12/25 08:00 04/12/25 08:00 04/12/25 08:00 04/12/25 08:00 04/12/25 08:00 04/12/25 11:00 04/11/25 14:53 Laboratory Results - last 24 hr 04/11/25 20:21: Vancomycin Trough 10.0 04/12/25 05:29: WBC 10.0 D, RBC 3.86 L, Hgb 11.3 L, Hct 34.3 L, MCV 88.9, MCH 29.3, MCHC 32.9, RDW 13.3, Plt Count 386 D, MPV 9.5, Neut % (Auto) 68.2, Lymph % (Auto) 25.8, Rhea % (Auto) 5.0, Eos % (Auto) 0.0 L, Baso % (Auto) 0.6, Neut # (Auto) 6.8, Lymph # (Auto) 2.6, Rhea # (Auto) 0.5, Eos # (Auto) 0.0, Baso # (Auto) 0.1, Sodium 135 L, Potassium 4.0, Chloride 104, Carbon Dioxide 28, Anion Gap 7.0, BUN 9, Creatinine 0.90, Estimated Creat Clear 74, Estimated GFR 65, Est GFR ( Amer) 78, Glucose 93, Calcium 8.9, Magnesium 2.2, Total Bilirubin 0.4, AST 22, ALT 12, Alkaline Phosphatase 55, C-Reactive Protein 1.6, Total Protein 5.8 L, Albumin 3.4 L, Globulin 2.4, Albumin/Globulin Ratio 1.4 I & O for Last 24 hours: Intake & Output 04/09/25 04/10/25 04/11/25 04/12/25 23:59 23:59 23:59 23:59 Intake Total 1080 / 1500 3858.333 / 4038.333 2501.667 / 2855.667 824 / 824 Output Total 0 / 0 0 / 0 0 / 0 250 / 250 Balance 1080 / 1500 3858.333 / 4038.333 2501.667 / 2855.667 574 / 574 Weight 59.421 kg 61.779 kg 62.051 kg 66.877 kg Microbiology Reports for the Last 24 Hours: Microbiology 04/11/25 Unknown Bronchial Washings - Left Upper Lobe Gram Stain - Final 04/11/25 Unknown Transbronchial Biopsy - Left Upper Lobe Gram Stain - Final 04/09/25 11:25 Blood Blood Culture - Preliminary NO GROWTH AFTER 48 HOURS 04/09/25 11:15 Blood Blood Culture - Preliminary NO GROWTH AFTER 48 HOURS Constitutional Constitutional: no acute distress and cooperative *Routine HEENT Exam Head: Present normocephalic Eye: Present EOMI and PERRL ENT: Present mucous membranes moist *Routine Neck Exam Neck: Present supple; Absent lymphadenopathy *Routine Respiratory Exam Respiratory: Present CTA bilaterally; Absent rhonchi or wheezes *Routine Cardiovascular Exam Cardiovascular: Present RRR *Routine Abdominal Exam Abdominal: Present soft and normoactive bowel sounds; Absent tenderness *Routine Rectal Exam Patient deferred: visual exam *Routine Exam Patient deferred: external exam *Routine Extremities Exam Extremities: Absent cyanosis, clubbing or edema *Routine Skin Exam Skin: Present intact and warm; Absent rash *Routine Neurological Exam Neurological: Present alert, oriented X3 and moving all extremities; Absent altered mental status Routine Psychiatric Exam Psychiatric: Present normal affect Results Data Completed and Pending Labs on day of discharge: Labs from last 24 hours 04/12/25 04/11/25 05:29 20:21 WBC 10.0 D RBC 3.86 L Hgb 11.3 L Hct 34.3 L MCV 88.9 MCH 29.3 MCHC 32.9 RDW 13.3 Plt Count 386 D MPV 9.5 Neut % (Auto) 68.2 Lymph % (Auto) 25.8 Rhea % (Auto) 5.0 Eos % (Auto) 0.0 L Baso % (Auto) 0.6 Neut # (Auto) 6.8 Lymph # (Auto) 2.6 Rhea # (Auto) 0.5 Eos # (Auto) 0.0 Baso # (Auto) 0.1 Sodium 135 L Potassium 4.0 Chloride 104 Carbon Dioxide 28 Anion Gap 7.0 BUN 9 Creatinine 0.90 Estimated Creat Clear 74 Estimated GFR 65 Est GFR ( Amer) 78 Glucose 93 Calcium 8.9 Magnesium 2.2 Total Bilirubin 0.4 AST 22 ALT 12 Alkaline Phosphatase 55 C-Reactive Protein 1.6 Total Protein 5.8 L Albumin 3.4 L Globulin 2.4 Albumin/Globulin Ratio 1.4 Vancomycin Trough 10.0 Preliminary micro results at discharge 04/09/25 11:25 Blood Culture - Preliminary Blood NO GROWTH AFTER 48 HOURS 04/09/25 11:15 Blood Culture - Preliminary Blood NO GROWTH AFTER 48 HOURS DS: Diagnosis Discharge Diagnosis (1) Multifocal pneumonia: Status: Acute Code(s): J18.8 - Other pneumonia, unspecified organism (2) ILD (interstitial lung disease): Status: Acute Code(s): J84.9 - Interstitial pulmonary disease, unspecified (3) GERD (gastroesophageal reflux disease): Status: Acute Code(s): K21.9 - Gastro-esophageal reflux disease without esophagitis Qualifiers: Esophagitis presence: esophagitis presence not specified Qualified Code(s): K21.9 - Gastro-esophageal reflux disease without esophagitis (4) Thyroid disease: Status: Acute Code(s): E07.9 - Disorder of thyroid, unspecified Meds Home Medications and Allergies Home Medications ?Medication ?Instructions ?Recorded ?Confirmed ?Type amitriptyline 100 mg tablet 100 mg PO HS 06/14/20 04/10/25 History temazepam 15 mg capsule 15 mg PO HS 06/14/20 04/10/25 History levothyroxine 88 mcg tablet 88 mcg PO DAILYDM 04/03/22 04/10/25 History omeprazole 40 mg capsule,delayed 40 mg PO DAILY 10/03/22 04/10/25 History release famotidine 40 mg tablet 40 mg PO HS 10/10/22 04/10/25 History tizanidine 2 mg tablet 4 mg PO HS 10/10/22 04/10/25 History estradiol 0.01% (0.1 mg/gram) 1 g vaginal HS 04/10/25 04/10/25 History vaginal cream oxycodone 10 mg tablet 5 mg PO TIDP PRN Moderate Pain 04/10/25 04/10/25 History (Scale Score 5-6) sulfamethoxazole 800 1 tab PO BID #7 tabs 04/12/25 Rx mg-trimethoprim 160 mg tablet (Bactrim DS) New Prescriptions to Start Prescriptions: sulfamethoxazole-trimethoprim [Bactrim DS] Pedro Kingsley Allergies Allergy/AdvReac Type Severity Reaction Status Date / Time dichloralphenazone (From AdvReac Hallucinati Verified 03/17/25 13:59 Midrin) ng isometheptene (From Midrin) AdvReac Hallucinati Verified 03/17/25 13:59 ng Discharge Plan Disposition Patient Disposition: Home, Self-Care Condition: Fair Discharge Order Discharge Orders: Discharge Order (Routine); Ordered 04/12/25 Ordered By: Pedro Kingsley Follow up Plan Follow up with: Ivan Lopes MD [Physician, Pulmonology] - 04/19/25 10:40 am Mariano Pedraza MD [Primary Care Provider, Internal Medicine] - 04/18/25 2:30 pm Prescriptions/Medication Reconciliation: New sulfamethoxazole-trimethoprim [Bactrim DS] 800-160 mg tablet 1 tab PO BID Qty: 7 0RF Rx Instructions: start evening of 04/12 Continued temazepam 15 mg capsule 15 mg PO HS amitriptyline 100 mg tablet 100 mg PO HS levothyroxine 88 mcg tablet 88 mcg PO DAILYDM famotidine 40 mg tablet 40 mg PO HS tizanidine 2 mg tablet 4 mg PO HS omeprazole 40 mg capsule,delayed release(DR/EC) 40 mg PO DAILY estradiol 0.01 % (0.1 mg/gram) cream 1 g vaginal HS oxycodone 10 mg tablet 5 mg PO TIDP PRN (Reason: Moderate Pain (Scale Score 5-6)) Problem Reconciliation Problems Reviewed?: Yes Patient Discharge Instructions ACTIVITY: Continue current activity DIET: continue same diet Patient Instructions: DI for Shortness of Breath, Stop Light Pneumonia Print Language: Cuban Providers Primary Care Provider: Mariano Pedraza Admit Provider: Miguel A Meier Attending Provider: Miguel A Meier
--- NOTE | 2025-04-13 14:08 | CARE MANAGER ---
Contacted patient related to hospital discharge. She is aware of follow up appointments and is taking antibiotics as prescribed. She denies questions or concerns.
[2025-04-13 16:25] LABS: Legionella pneumophila Urinary Negative (Negative)
== END 2025-04-12 13:30 | disposition home or self-care (01) | DRG 167 ==
LOC: ER 11:30 → 2ND 14:51
PROVIDERS: Internal Medicine Pulmonary Disease; Admitting Provider Student in an Organized Health Care Education/Training Program; Emergency Provider Student in an Organized Health Care Education/Training Program; PCP Internal Medicine Adolescent Medicine; Visit Provider Student in an Organized Health Care Education/Training Program
PROC: 0BBG8ZX Excision of Left Upper Lung Lobe, Via Natural or Artificial Opening Endoscopic, Diagnostic (ICD-10-PCS; principal; 2025-04-11 13:15)
DX: J18.8 Other pneumonia, unspecified organism (principal); J84.116 Cryptogenic organizing pneumonia; J90 Pleural effusion, not elsewhere classified; J67.9 Hypersensitivity pneumonitis due to unspecified organic dust; E03.9 Hypothyroidism, unspecified; E07.81 Sick-euthyroid syndrome; K21.9 Gastro-esophageal reflux disease without esophagitis; G89.29 Other chronic pain; M50.30 Other cervical disc degeneration, unspecified cervical region; M50.20 Other cervical disc displacement, unspecified cervical region; M48.02 Spinal stenosis, cervical region; Y95 Nosocomial condition; Z87.891 Personal history of nicotine dependence; Z88.8 Allergy status to other drugs, medicaments and biological substances; Z79.890 Hormone replacement therapy; Z79.899 Other long term (current) drug therapy
CPT/HCPCS: 0223U; 36415; 71045; 71275; 76000; 76705; 80053; 80202; 82803; 83605; 83615; 83735; 83880; 84145; 84484; 85025; 86140; 87040; 87070; 87101; 87116; 87186; 87205; 87449; 89051; 93005; 99285; J0456; J0692; J1100; J1885; J2003; J2250; J2270; J2405; J2543; J2704; J2919; J3010; J3373; J3375; J7050; J7120; Q9967

== ENCOUNTER 2025-04-19 11:02 | Outpatient (CLI) | payer OTHER, SELFPAY ==
--- NOTE | 2025-04-19 11:04 | XR_ITS ---
FINAL REPORT CLINICAL HISTORY: sob f/u pneumonia COMPARISON: 04/11/2025 FINDINGS: 2 views of the chest were obtained . The heart is normal in size. The mediastinum is within normal limits. There is significant improvement in left lung opacities. In the right upper lobe is a vague opacity which is unchanged. There is no pleural effusion or pneumothorax. Osseous structures are unremarkable. IMPRESSION: Significant improvement in left lung opacities with stable vague right upper lobe opacity. Reviewed, Interpreted and Dictated by Luz Maria Washington MD Transcribed by Betina Zamarripa Authenticated and [facility]
--- OUTSIDE RECORDS SUMMARY | 2025-04-19 11:05 | XMS_ITS | Clinical Summary ---
Author Organization [facility] [place] Address [address] [place] [address] Care Team Providers Care Health Underwriter Name Role Phone Mariano Pedraza MD Primary Care Provider + [phone] Social History Tobacco Use Types Packs/Day Years [...] [facility]-Cervical Cancer Screening 05/22/2021 [facility]-HPV/Cotest 05/22/2021 05/22/2016 [id number] Vaccine ( season) 2025 04/04/2021, 08/16/2020, 07/19/2020 [...] Narrative [facility] - 05/30/2016 1:27 PM EST [facility] MR #: [id number] [facility] [address] [place], [place] [address] 1970 (Age: 45) FW Collect Date: 05/22/2016 00:00 Receipt Date: 05/23/2016 09:03 Page 1 DEPARTMENT OF PATHOLOGY AND LABORATORY MEDICINE CYTOPATHOLOGY REPORT Email: [email or web address] [phone] ATTENDING MD/Practitioner: Birdie Nieto MD. Service: [facility]BE Location: [facility] Reported: 05/30/2016 13:27 Collected: 05/22/2016 00:00 INTERPRETATION A. THIN PREP (CERVICAL/VAGINAL): NEGATIVE FOR INTRAEPITHELIAL LESION OR MALIGNANCY. SATISFACTORY FOR EVALUATION; ENDOCERVICAL/TRANSFORMATION ZONE COMPONENT ABSENT/INSUFFICIENT. Slide scanned and imaged by Easy-Point ThinPrep Imaging System with manual review of [...] results is suggested (please call Microbiology at [phone] for results). CLINICAL INFORMATION: Menstrual History: Cyclic Date of Last Menstrual Period: 05/07/2016 Other Clinical Conditions: If ASCUS and > 24 years of age, HPV/DNA testing requested. SPECIMEN DESCRIPTION: A: THIN PREP (CERVICAL/VAGINAL) THIN PREP PROCESS CELLULAR ENHANCEMENT ICD: F: A; RT IMAGE [id number] SNOMED CODES: A; [id number] In cases where a pathologist has signed out the report, the service has been rendered in part by a resident. The signing pathologist has performed and is responsible for the reported pathologic evaluation. Alfredo Nieto MD LAB PATHOLOGY ORDERABLES Final Result SUNQUEST from Last 3 Months or Most Recently Relevant to Health Maintenance Insurance [employer] Care Teams Health Underwriter Relationship Specialty Start Date End Date Mariano Pedraza MD [address] [place] [address] [place] [address] PCP - General 09/29/20
--- OUTSIDE RECORDS SUMMARY | 2025-04-19 11:05 | XMS_ITS | Clinical Summary ---
Author Organization [facility] Address [address], [address] [place] [address] Care Team Providers Care Textile Artist Name Role Phone Mariano Pedraza MD Primary Care Provider [phone] Social History Tobacco Use Types Packs/Day Years Used Date Smoking Tobacco: Never Assessed Comments Unknown Sex and Gender Information Value Date Recorded Sex Assigned at Not on file Legal Sex Female 3:08 AM EST Gender Identity Not on file Sexual Orientation Not on file Plan of Treatment Not on file Insurance [facility] Care Teams Textile Artist Relationship Specialty Start Date End Date Mariano Pedraza MD [address] [place] [id number] PCP - General Internal Medicine 10/22/18
== END 2025-04-19 23:59 | disposition home or self-care (01) ==
LOC: RAD 11:03
PROVIDERS: PCP Internal Medicine Adolescent Medicine; Visit Provider Internal Medicine Pulmonary Disease
DX: R06.02 Shortness of breath (principal); R91.8 Other nonspecific abnormal finding of lung field
CPT/HCPCS: 71046